=== PATIENT | female | born 1950 | race Caucasian/White ===

== ENCOUNTER 2019-02-02 09:54 | Inpatient (IN) | payer BC ==
--- NOTE | 2019-02-05 17:19 | R.PREADM ---
SCREENING DATE AND TIME 02/02/2019 09:58 (TAX ADVISOR) ANTICIPATED REHAB ADMISSION DATE 02/04/2019 REFERRING FACILITY [facility] REFERRAL DATE AND TIME 02/02/2019 09:58 (TAX ADVISOR) ACUTE ADMIT DATE 01/25/2019 Previous Rehabilitation(s): No. 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 CLINICAL LIAISON Torri Delacruz PHYSICIAN REVIEWER Dr. Cooper Pompa M.D. MR# [id number] [facility] [id number] NAME YAMILKA GLORIA [address]ESS [address] [facility] [address] DATE OF 1950 AGE 68 SSN# [id number] GENDER female MARITAL STATUS RACE white ADMIT FROM 02 - [facility] PRE-HOSPITAL LIVING SETTING 01 - Home (private home/apt. board/care, assisted living, snf, transitional living) HOME TYPE AND DETAILS Type of home: single family house # of steps to enter the residence: 0 # of steps within the residence: 0 # of levels in the residence: 1 PRE-HOSPITAL LIVING WITH Family/Relatives FAMILY SUPPORT Yes PRIMARY FAMILY CONTACT NAME Charles Gloria PRIMARY FAMILY CONTACT PHONE PHONE PRIMARY FAMILY CONTACT ON ADM.? no IS PRIMARY FAMILY CONTACT AUTH. REP.? no 1ST EMERGENCY CONTACT Charles Gloria 1ST CONTACT PHONE PHONE 1ST CONTACT ON ADM. no IS 1ST CONTACT AUTH. REP.? no PHONE 2ND CONTACT ON ADM.? no PATIENT EMPLOYMENT STATUS Retired (for age) PATIENT EMPLOYER No Employer PAYOR INFORMATION: 1ST PAYOR NAME Amari Allen 1ST PAYOR PHONE 1ST PAYOR INJURY/ILLNESS DUE TO ACCIDENT? No ANOTHER DEMOCRAT RESPONSIBLE? 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 Pneumonia Dehydration Malnutrition SUMMARY OF ACUTE HOSPITALIZATION: Pt. is a 68 yo Right-handed white female. On 01/25/2019 she was admitted to [facility] with diagnosis Secondary malignant neoplasm of bra in (C79.31). Her impairment category is Brain Dysfunction 02 - Non-traumatic Brain Dysfunction (02.1). Pre-morbidly, Pt. was independent/mod-I in Locomotion, Endurance, Self-Care, Balance, Transfers Contr ol, Safety Awareness, Social Cognition, Communication, and Sphincter Control; and she had good Sphinc ter Control. Currently, she has deficits of Locomotion, Self-Care, Endurance, Transfers Control, Balance, Safety A wareness, Social Cognition, Ambulation, Communication, Safety Awareness and Self-Care, and Sphincter Control. Pt. is now referred to [facility] for acute in-patient rehabilitation in order to maximize patient's functional independence in activities of daily living, strength, ROM, and mobi lity. Patient has realistic goal of being discharged at assistance level 6-Lilian to reside at Home with Fam nancy/Relatives. Yamilka Gloria is a 68 year old female that lives with her in a 1 lior home. She was completely independ ent without any assistive device and works at the [employer]. 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 and treated. She is now medically stable but in need of 24-hour nursing, doctor supervision and oversite while receiving in 3hours of therapy a day/15 hours per week and receive care with an intensive interdisciplinary approach. PAST MEDICAL HISTORY Hyperosmolality and hypernatremia (E87.0) acute encephalopathy acute pulmonary insuff fol nonthoracic surgery brain compression cerebral edema dysphagia essential primary hypertension hemiplegia and hemiparesis hypocalcemia hypokalemia MEDICATION ALLERGIES: No Known Drug Allergies (NKDA) ENVIRONMENTAL ALLERGIES: - Substance Allergies None Known - Other Allergies None Known CODE STATUS: Full code WEIGHT/HEIGHT/BMI: WEIGHT 183 lbs HEIGHT 5' 8" BMI 27.8 DIET: - Diet Type SOFT - Diet - Solid Texture GI SOFT - Diet - Liquid Texture [place]-Thickened - Tube Feed N/A SKIN DIAGRAM: Incision on Head; extent - small; stage - NS(Not Stageable). Treatment - Per Physician's Orders. REVIEW OF SYSTEMS: - Gen Alert and awake Lying in bed No apparent distress Oriented to: person, time, and place - Vital Signs Vital signs stable, afebrile - CVS RRR VITAL SIGNS Temperature: 98.4 F SBP/DBP: 137/96 Pulse: 77 Resp: 20 Vital signs stable, afebrile MEDICATIONS/TREATMENT: Other- See attached MAR (Medication Administration Record). CURRENT SPHINCTER CONTROL: Pre-hospital bladder status: continent # of bladder accidents in the last 7 days prior to screenin Pre-hospital bowel status: continent # of bowel accidents in the last 7 days prior to screenin Last Bowel Movement Date: 02/02/2019 CURRENT LOCOMOTION STATUS: distance traveled in wheelchair 0 feet distance walked 0 feet DETAILED CURRENT FUNCTIONAL STATUS: - Bladder accident frequency: Ind - No accidents in the past 7 days - Bowel accident frequency: Ind - No accidents in the past 7 days - Walking score based on distance walked: 1(<=50ft) - Wheelchair score based on distance traveled: 1(<=50ft) QI SCORES: - Self-Care A. Eating 04-Supervision or touching assistance B. Oral hygiene 03-Partial/moderate assistance C. Toileting hygiene 02-Substantial/maximal assistance E. Shower/bathe self 88-Not attempted due to medical condition or safety concerns F. Upper body dressing 02-Substantial/maximal assistance G. Lower body dressing 02-Substantial/maximal assistance H. Putting on/taking off footwear 01-Dependent - Mobility A. Roll left and right 03-Partial/moderate assistance B. Sit to lying 02-Substantial/maximal assistance C. Lying to sitting on side of bed 03-Partial/moderate assistance D. Sit to stand 02-Substantial/maximal assistance E. Chair/deu-oq-fucyg transfer 02-Substantial/maximal assistance F. Toilet transfer 02-Substantial/maximal assistance G. Car transfer 88-Not attempted due to medical condition or safety concerns I. Walk 10 feet 88-Not attempted due to medical condition or safety concerns J. Walk 50 feet with two turns 88-Not attempted due to medical condition or safety concerns K. Walk 150 feet 88-Not attempted due to medical condition or safety concerns L. Walking 10 feet on uneven surfaces 88-Not attempted due to medical condition or safety concerns M. 1 step (curb) 88-Not attempted due to medical condition or safety concerns N. 4 steps 88-Not attempted due to medical condition or safety concerns O. 12 steps 88-Not attempted due to medical condition or safety concerns P. Picking up object 88-Not attempted due to medical condition or safety concerns R. Wheel 50 feet with two turns 88-Not attempted due to medical condition or safety concerns S. Wheel 150 feet 88-Not attempted due to medical condition or safety concerns - Bladder and Bowel Bladder continence 9-Not applicable Bowel continence 3-Always incontinent - Endurance Poor - Balance Poor - Safety Awareness Poor CURRENT FUNC. DEFICITS: Self-Care, Mobility, Endurance, Balance, and Safety Awareness CURRENT / PREVIOUS ASSISTIVE DEVICES: 3-in-1 Commode [facility] Bed Raised Toilet Rolling Walker Tub Bench Wheelchair CURRENT USE ASSISTIVE DEVICES: SCDs TEDs HISTORY OF FALLS. HAS THE PATIENT HAD TWO OR MORE FALLS IN THE PAST YEAR OR ANY FALL WITH INJURY IN T HE PAST YEAR?: No PRIOR SURGERY. DID THE PATIENT HAVE MAJOR SURGERY DURING THE 100 DAYS PRIOR TO ADMISSION?: No THERAPY NOTES FROM ACUTE CARE: Attached. SPECIAL NEEDS: - Safety Concerns Aspiration precautions needed due to Dysphagia Fall precautions needed due to Poor balance Skin breakdown precautions needed due to skin breakdown risk PRECAUTIONS: - Aspiration Precaution 1 to 1 supervision with all po intake All meals in the dysphagia dining room No straws Seated at 90 degrees while eating and 30 minutes after meals - Fall Precaution Bed alarm TABS alarm Wheel chair alarm PATIENT NEEDS ACTIVE AND ONGOING THERAPEUTIC INTERVENTION OF MULTIPLE THERAPY DISCIPLINES, INCLUDING: - Dietary and Nutrition Adequate Nutrition. Nutritional Education. Nutritional Supplements. - Speech Therapy Cognitive Training. Dysphagia Therapy. Expressive Language Skills. Receptive Language Skills. PATIENT NEEDS CLOSE MEDICAL SUPERVISION BY A REHABILITATION PHYSICIAN FOR: Coordination of Treatment Team Medical and Co-Morbidity Management Wound Care PATIENT REQUIRES 24X7 REHAB NURSING FOR MEDICAL AND FUNCTIONAL MGT. OF THE FOLLOWING DEFICITS: Disease Management Medication Management Patient/Family Education Providing Safe Environment Skin Integrity Swallowing PATIENT REQUIRES INTENSIVE, COORDINATED INTERDISCIPLINARY APPROACH TO REHAB: Arranging Home Equipment/Services Discharge Planning Family Intervention/Training Rules Examiner/Case Management PATIENT REHAB POTENTIAL: Phuong GLORIA is able and expected to receive 3 hours of individualized therapy daily on at least 5 of ever y 7 days Phuong GLORIA's prognosis for significant practical improvement within a reasonable period of time appears Good Expected level of measurable improvement will be of a practical value to Phuong GLORIA's functional capacit y or adaptations to impairments Has a viable Discharge Plan Medically appropriate; condition is sufficiently stable to participate in intensive rehab program DISCHARGE PLAN: - Estimated Length of Stay (days) 13. - Consensus on plan Discharge plan has been discussed with primary caregiver. Patient/Family is in agreement with the felipa n. Primary caregiver is in agreement with the plan. - Patient/Family Goals Return home with assistance. - Planned Living Setting Upon Discharge Home, to live with Family/Relatives. RECOMMENDED CARE LEVEL: IRF RECOMMENDATION DETAILS: Recommended Admission to Comprehensive Rehabilitation Program to Increase Functional [place] SCREENER'S COMPLETENESS CONFIRMATION: - Screening Confirmation The patient data collection on this preadmission screening form is finished PHYSICIANS REVIEW AND ADMISSION DETERMINATION Admit - Based on my review of the Pre-Admission Screening results, in my medical judgment and experie nce, I concur with the findings and recommend admission to [facility], as this patient requires an IRF level of care. SIGNATURE PANEL: Clinical Liaison - [electronically] signed by Torri Delacruz on 02/05/2019 at 17:08 (TAX ADVISOR) Consumer Services Advisor - /__/____ at __:__ Physician Reviewer - [electronically] signed by Dr. Cooper Pompa M.D. on 02/05/2019 at 17:19 (TAX ADVISOR )
[2019-02-06] MEDS ORDERED: ACETAMINOPHEN 325 MG TABLET PO PRN (03:40)
[2019-02-06 05:43] LABS: Urine Appearance CLEAR; Urine Bilirubin NEGATIVE (NEG); Urine Blood NEGATIVE (NEG); Urine Color YELLOW; Urine Glucose NEGATIVE (NEG); Urine Protein NEGATIVE (NEG); Urine Urobilinogen 0.2 mg/dL (0.2-1.0); Urine pH 6.5 (5.0-7.0)
[2019-02-06 05:52] LABS: Urine Bacteria <20 /HPF (<20); Urine Culture Reflex Order NOT NEEDED; Urine RBC NONE SEEN /HPF (NONE SEEN)
[2019-02-06 06:34] LABS: Absolute Lymphocytes (CBC) 1.1 K/uL (0.7-4.9); Basophils % 0.1 % (0-1.3); Hematocrit 31.6 % (36.0-45.0); Lymphocytes % 6.5 % (15.3-44.8); MPV 10.6 fL (7.6-11.3); RBC Red Blood Cell Count 3.42 M/uL (3.86-4.86)
[2019-02-06] MEDS: HEPARIN 5000 UNIT/ML 1 ML VIAL SQ SCH ×2 (07:26→20:42)
[2019-02-06] MEDS ORDERED: dexAMETHasone 4 MG TAB PO SCH (08:00)
[2019-02-06 08:12] LABS: Albumin 2.6 g/dL (3.4-5.0); BUN Blood Urea Nitrogen 18 mg/dL (7-18); Bicarbonate 31 mmol/L (21-32); Glucose Level 126 mg/dL (74-106); Magnesium 2.2 mg/dL (1.8-2.4); Potassium 3.7 mmol/L (3.5-5.1); Prealbumin 28.7 mg/dL (20-40); Sodium Level 143 mmol/L (136-145)
[2019-02-06] MEDS: DOCUSATE NA 100 MG CAP PO SCH ×2 (08:19→20:40)
[2019-02-06] MEDS: dexAMETHasone 4 MG TAB PO SCH ×3 (08:19→20:42)
[2019-02-06] MEDS: levETIRAcetam 500 MG/5 ML OSYR PO SCH ×2 (08:58→20:40)
[2019-02-06] MEDS: FAMOTIDINE 20 MG TAB PO SCH ×2 (10:00→20:40)
[2019-02-06 10:12] LABS: Blood Morphology Comment NOT SEEN (NOT SEEN); Platelet Estimate ADEQ; Urine White Blood Cell Casts OK
[2019-02-06] MEDS ORDERED: POLYETHYL GLY 3350 17 GM/DOSE PO PRN (12:00)
--- NOTE | 2019-02-06 12:08 | FAST ---
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 Cooper Pompa M.D. 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 ROLL LEFT AND RIGHT: ROLL LEFT AND RIGHT - STEP 1: Does the patient complete the activity by him/herself with no assistance (physical, verbal/nonverbal cueing, setup/clean-up)? No. ROLL LEFT AND RIGHT - STEP 2: Does the patient need only setup/clean-up assistance from one helper? No. ROLL LEFT AND RIGHT - STEP 3: Does the patient need only verbal/nonverbal cueing or touching/steadying/contact guard assistance fro m one helper? Yes. 1. [id number] ADMISSION PERFORMANCE: Supervision or touching assistance CODE: 04 SIT TO LYING: SIT TO LYING - STEP 1: Does the patient complete the activity by him/herself with no assistance (physical, verbal/nonverbal cueing, setup/clean-up)? No. SIT TO LYING - STEP 2: Does the patient need only setup/clean-up assistance from one helper? No. SIT TO LYING - STEP 3: Does the patient need only verbal/nonverbal cueing or touching/steadying/contact guard assistance fro m one helper? Yes. 1. [id number] ADMISSION PERFORMANCE: Supervision or touching assistance CODE: 04 LYING TO SITTING: LYING TO SITTING ON SIDE OF BED - STEP 1: Does the patient complete the activity by him/herself with no assistance (physical, verbal/nonverbal cueing, setup/clean-up)? No. LYING TO SITTING ON SIDE OF BED - STEP 2: Does the patient need only setup/clean-up assistance from one helper? No. LYING TO SITTING ON SIDE OF BED - STEP 3: Does the patient need only verbal/nonverbal cueing or touching/steadying/contact guard assistance fro m one helper? Yes. 1. [id number] ADMISSION PERFORMANCE: Supervision or touching assistance CODE: 04 SIT TO STAND: SIT TO STAND - STEP 1: Does the patient complete the activity by him/herself with no assistance (physical, verbal/nonverbal cueing, setup/clean-up)? No. SIT TO STAND - STEP 2: Does the patient need only setup/clean-up assistance from one helper? No. SIT TO STAND - STEP 3: Does the patient need only verbal/nonverbal cueing or touching/steadying/contact guard assistance fro m one helper? Yes. 1. [id number] ADMISSION PERFORMANCE: Supervision or touching assistance CODE: 04 TRANSFERS: BED, CHAIR: CHAIR/[id number] TRANSFER - STEP 1: Does the patient complete the activity by him/herself with no assistance (physical, verbal/nonverbal cueing, setup/clean-up)? No. CHAIR/[id number] TRANSFER - STEP 2: Does the patient need only setup/clean-up assistance from one helper? No. CHAIR/[id number] TRANSFER - STEP 3: Does the patient need only verbal/nonverbal cueing or touching/steadying/contact guard assistance fro m one helper? Yes. 1. [id number] ADMISSION PERFORMANCE: Supervision or touching assistance CODE: 04 TRANSFER TOILET: TOILET TRANSFER - STEP 1: Does the patient complete the activity by him/herself with no assistance (physical, verbal/nonverbal cueing, setup/clean-up)? No. TOILET TRANSFER - STEP 2: Does the patient need only setup/clean-up assistance from one helper? No. TOILET TRANSFER - STEP 3: Does the patient need only verbal/nonverbal cueing or touching/steadying/contact guard assistance fro m one helper? Yes. 1. [id number] ADMISSION PERFORMANCE: Supervision or touching assistance CODE: 04 TRANSFERS: CAR: Not attempted due to environmental limitations (e.g., lack of equipment, weather constraints) CODE: 10 WALK 10 FEET: WALK 10 FEET - STEP 1: Does the patient complete the activity by him/herself with no assistance (physical, verbal/nonverbal cueing, setup/clean-up)? No. WALK 10 FEET - STEP 2: Does the patient need only setup/clean-up assistance from one helper? No. WALK 10 FEET - STEP 3: Does the patient need only verbal/nonverbal cueing or touching/steadying/contact guard assistance fro m one helper? Yes. 1. [id number] ADMISSION PERFORMANCE: Supervision or touching assistance CODE: 04 WALK 50 FEET: WALK 50 FEET - STEP 1: Does the patient complete the activity by him/herself with no assistance (physical, verbal/nonverbal cueing, setup/clean-up)? No. WALK 50 FEET - STEP 2: Does the patient need only setup/clean-up assistance from one helper? No. WALK 50 FEET - STEP 3: Does the patient need only verbal/nonverbal cueing or touching/steadying/contact guard assistance fro m one helper? Yes. 1. [id number] ADMISSION PERFORMANCE: Supervision or touching assistance CODE: 04 WALK 150 FEET: WALK 150 FEET - STEP 1: Does the patient complete the activity by him/herself with no assistance (physical, verbal/nonverbal cueing, setup/clean-up)? No. WALK 150 FEET - STEP 2: Does the patient need only setup/clean-up assistance from one helper? No. WALK 150 FEET - STEP 3: Does the patient need only verbal/nonverbal cueing or touching/steadying/contact guard assistance fro m one helper? Yes. 1. [id number] ADMISSION PERFORMANCE: Supervision or touching assistance CODE: WALK 10 FEET UNEVEN: Not attempted due to environmental limitations (e.g., lack of equipment, weather constraints) CODE: 10 1 STEP (CURB): Not attempted due to medical condition or safety concerns CODE: 88 PICKING UP OBJECT: Not attempted due to medical condition or safety concerns CODE: 88 DOES THE PATIENT USE A WHEELCHAIR/SCOOTER? Q1. DOES THE PATIENT USE A WHEELCHAIR/SCOOTER?: No CODE: 0 INDICATE THE TYPE OF WHEELCHAIR/SCOOTER USED: CODE: EXPR INDICATE THE TYPE OF WHEELCHAIR/SCOOTER USED: CODE: EXPR BLADDER AND BOWEL: CODE: EXPR CODE: EXPR SIGNATURE PANEL: The following modified sections: 1. [id number] Admission Performance, 1. [id number] Admission Performance, 1. [id number] Admission Performance, 1. [id number] Admission Performance, 1. [id number] Admission Performance, 1. [id number] Admission Performance, 1. [id number] Admission Performance, 1. [id number] Admission Performance , 1. [id number] Admission Performance, 1. [id number] Admission Performance, 1. [id number] Admission Performanc e, Q1. Does the patient use a wheelchair/scooter? were [electronically] signed by Karen Menendez on Sat Feb 06 2019 12:07:29 T-0600 (Central Standard Time)
[2019-02-06] MEDS ORDERED: BISACODYL 10 MG RECTAL SUPP PR PRN (13:35)
[2019-02-06] MEDS ORDERED: MAGNESIUM HYDROXIDE 8% 30 ML PO PRN (13:35)
[2019-02-06] MEDS: ACETAMINOPHEN 500 MG TAB PO PRN ×2 (13:58→17:45)
--- NOTE | 2019-02-06 15:13 | R.HP ---
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 board/care, assisted living, mcfp, transitional living) PRE-HOSPITAL LIVING WITH Family/Relatives ENCOUNTER PHYSICIAN: Dr. Cooper Pompa M.D. 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 is a 68 yo Right-handed white female. On 01/25/2019 she was admitted to [facility] with diagnosis Secondary malignant neoplasm of bra in (C79.31). Her impairment category is Brain Dysfunction 02 - Non-traumatic Brain Dysfunction (02.1). Pre-morbidly, Pt. was independent/mod-I in Locomotion, Endurance, Self-Care, Balance, Transfers Contr ol, Safety Awareness, Social Cognition, Communication, and Sphincter Control; and she had good Sphinc ter Control. Currently, she has deficits of Locomotion, Self-Care, Endurance, Transfers Control, Balance, Safety A wareness, Social Cognition, Ambulation, Communication, Safety Awareness and Self-Care, and Sphincter Control. Pt. is now referred to [facility] for acute in-patient rehabilitation in order to maximize patient's functional independence in activities of daily living, strength, ROM, and mobi lity. Patient has realistic goal of being discharged at assistance level 6-Lilian to reside at Home with Fam nancy/Relatives. Yamilka Adkins is a 68 year old female that lives with her in a 1 lior home. She was completely independ ent without any assistive device and works at the [employer]. On 01/25/2019, patient had a history of 1 day headache and reported left sided weakness, initially as a code stroke presenting with right temporal and right parietal lesions concerning metastasis and was admitted to [facility] and treated. She is now medically stable but in need of 24-hour nursing, doctor supervision and oversite while receiving in 3hours of therapy a day/15 hours per week and receive care with an intensive interdisciplinary approach. MEDICATION ALLERGIES: No Known Drug Allergies (NKDA) ENVIRONMENTAL ALLERGIES: - Substance Allergies None Known - Other Allergies None Known PAST MEDICAL HISTORY: Hyperosmolality and hypernatremia (E87.0) acute encephalopathy acute pulmonary insuff fol nonthoracic surgery brain compression cerebral edema dysphagia essential primary hypertension hemiplegia and hemiparesis hypocalcemia hypokalemia FAMILY HISTORY: Family history is not contributory. SOCIAL HISTORY: - Home Living Family/Relatives REVIEW OF SYSTEMS: - Gen No Chills Fatigue No Fever Headaches and right temporal pain. Insomnia - Eyes No Double Vision No itchiness - ENMT No Difficulty Swallowing - CVS No Chest Discomfort No Chest Pain Fatigue No Weight Gain - Resp No Cough No Shortness of Breath - GI Continent No Abdominal Pain No Constipation No Diarrhea - Continent No Kidney Pain No Painful Urination No Urinary Urgency - MSK No Joint Pain No Muscle Cramps No Stiffness - Skin No Itching No Rash No Suspicious Lesions - Neuro Coordination Difficulty No Difficulty with Concentration No Memory Loss No Seizures Weakness - Psych No Anxiety No Depression No HIV Exposure No Persistent Infections No Seasonal Allergies - Endo No Cold/Heat Intolerance No Excessive Hunger No Excessive Thirst No Excessive Urination PHYSICAL EXAM - Gen Alert and awake Lying in bed No apparent distress Oriented to: person, time, and place - Vital Signs Vital signs stable, afebrile - Skin No skin breakdown. Normacephalic - Eyes No abnormalities - ENMT No abnormalities - Neck No abnormalities - CVS RRR - Chest No abnormalities - Resp Clear to auscultation - Abd Soft - GI Non distended Deferred - No abnormalities - Ext No significant edema - MSK 4/5 weakness in both lower extremities. - Neuro No focal deficits - Psych No abnormalities VITAL SIGNS Temperature: 98.4 F SBP/DBP: 137/96 Pulse: 77 Resp: 16 NURSING: - Shower allowing shower - Bladder care per protocol - Skin care per protocol PRECAUTIONS: - Aspiration Precaution 1 to 1 supervision with all po intake All meals in the dysphagia dining room No straws Seated at 90 degrees while eating and 30 minutes after meals - Fall Precaution Bed alarm TABS alarm Wheel chair alarm ACTIVITIES OOB only with supervision QI SCORES: - Self-Care A. Eating 04-Supervision or touching assistance B. Oral hygiene 03-Partial/moderate assistance C. Toileting hygiene 02-Substantial/maximal assistance E. Shower/bathe self 88-Not attempted due to medical condition or safety concerns F. Upper body dressing 02-Substantial/maximal assistance G. Lower body dressing 02-Substantial/maximal assistance H. Putting on/taking off footwear 01-Dependent - Mobility A. Roll left and right 03-Partial/moderate assistance B. Sit to lying 02-Substantial/maximal assistance C. Lying to sitting on side of bed 03-Partial/moderate assistance D. Sit to stand 02-Substantial/maximal assistance E. Chair/fgr-yx-ptttf transfer 02-Substantial/maximal assistance F. Toilet transfer 02-Substantial/maximal assistance G. Car transfer 88-Not attempted due to medical condition or safety concerns I. Walk 10 feet 88-Not attempted due to medical condition or safety concerns J. Walk 50 feet with two turns 88-Not attempted due to medical condition or safety concerns K. Walk 150 feet 88-Not attempted due to medical condition or safety concerns L. Walking 10 feet on uneven surfaces 88-Not attempted due to medical condition or safety concerns M. 1 step (curb) 88-Not attempted due to medical condition or safety concerns N. 4 steps 88-Not attempted due to medical condition or safety concerns O. 12 steps 88-Not attempted due to medical condition or safety concerns P. Picking up object 88-Not attempted due to medical condition or safety concerns R. Wheel 50 feet with two turns 88-Not attempted due to medical condition or safety concerns S. Wheel 150 feet 88-Not attempted due to medical condition or safety concerns - Bladder and Bowel Bladder continence 9-Not applicable Bowel continence 3-Always incontinent - Endurance Poor - Balance Poor - Safety Awareness Poor CURRENT FUNC. DEFICITS: Self-Care, Mobility, Endurance, Balance, and Safety Awareness MEDICATIONS: - Other See attached MAR (Medication Administration Record) ASSESSMENT: Pt. 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 was independent/mod-I in Locomotion, Endu felecia, Self-Care, Balance, Transfers Control, Safety Awareness, Social Cognition, Communication, and Sphincter Control; and she had good Sphincter Control.Currently, she has deficits of Locomotion, Self -Care, Endurance, Transfers Control, Balance, Safety Awareness, Social Cognition, Ambulation, Communi cation, Safety Awareness and Self-Care, and Sphincter Control.Pt. is now referred to [facility] for acute in-patient rehabilitation in order to maximize patient's functional indep endence in activities of daily living, strength, ROM, and mobility.- Rehab Goal Patient has realistic goal of being discharged at assistance level 6-Lilian to reside at Home with Fam nancy/Relatives. Yamilka Adkins is a 68 year old female that lives with her in a 1 lior home. She was completely independ ent without any assistive device and works at the [employer]. On 01/25/2019, patient had a history of 1 day headache and reported left sided weakness, initially as a code stroke presenting with right temporal and right parietal lesions concerning metastasis and was admitted to [facility] and treated. She is now medically stable but in need of 24-hour nursing, doctor supervision and oversite while receiving in 3hours of therapy a day/15 hours per week and receive care with an intensive interdisciplinary approach.REHAB PLAN: - Physical Therapy Gait dysfunction - to improve, our physical therapists will perform initial evaluation of pt's status upon admission and devise an individualized program for Gait Training, and Wheel Chair mobility Inability to transfer - to improve, our physical therapists will perform initial evaluation of pt's s tatus upon admission and devise an individualized program for Bed mobility Need for home safety evaluation - to improve, our physical therapists will perform initial evaluation of pt's status upon admission and devise an individualized program for Home Evaluation Need in caregiver upon discharge - to improve, our physical therapists will perform initial evaluatio n of pt's status upon admission and devise an individualized program for Caregiver Training New precaution - to improve, our physical therapists will perform initial evaluation of pt's status u robel admission and devise an individualized program for Patient precaution education Edema - to improve, our physical therapists will perform initial evaluation of pt's status upon admi ssion and devise an individualized program for Elevation Training, and Lymphedema Therapy Poor balance - to improve, our physical therapists will perform initial evaluation of pt's status upo n admission and devise an individualized program for Balance Training Poor endurance - to improve, our physical therapists will perform initial evaluation of pt's status u robel admission and devise an individualized program for Endurance Training Weakness - to improve, our physical therapists will perform initial evaluation of pt's status upon ad mission and devise an individualized program for Aquatic Therapy, Neuromuscular Reeducation, and Stre ngthening Achieving independence - to improve, our physical therapists will perform initial evaluation of pt's status upon admission and devise an individualized program for Community Reintegration Activities - Occupational Therapy ADL deficits - to improve, our occupation therapists will perform initial evaluation of pt's status u robel admission and devise an individualized program for Bathing, Bed mobility, Community Reintegration , Cooking, Dressing, Eating, Fine Motor Skills, Grooming, Homemaking, Kitchen Mobility, Laundry, Beata ent Education, Safety Awareness, Splinting - Positioning, Transfers(Toilet, Tub, Shower), and Wheel C hair Management Cognitive deficits - to improve, our occupation therapists will perform initial evaluation of pt's st atus upon admission and devise an individualized program for Cognition - orientation Need for career coach - to improve, our occupation therapists will perform initial evaluation of pt's s tatus upon admission and devise an individualized program for Caregiver Training Weakness - to improve, our occupation therapists will perform initial evaluation of pt's status upon admission and devise an individualized program for Aquatic Therapy, Balance, Endurance, UE ROM, and U E strengthening MEDICAL PLAN: - Diet Type Start SOFT - Diet - Solid Texture Start GI SOFT - Diet - Liquid Texture Start [place]-Thickened - Tube Feed Start N/A - Bladder care per protocol - Aspiration Precaution 1 to 1 supervision with all po intake All meals in the dysphagia dining room No straws Seated at 90 degrees while eating and 30 minutes after meals - Fall Precaution Bed alarm TABS alarm Wheel chair alarm - Skin care per protocol - Other See attached MAR (Medication Administration Record) - Shower shower DISCHARGE PLAN: - Estimated Length of Stay (days) 13. - Consensus on plan Discharge plan has been discussed with primary caregiver. Patient/Family is in agreement with the felipa n. Primary caregiver is in agreement with the plan. - Patient/Family Goals Return home with assistance. - Planned Living Setting Upon Discharge Home, to live with Family/Relatives. 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
--- NOTE | 2019-02-06 15:14 | PAPE ---
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 Cooper Pompa M.D. 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) ONSET DATE 01/25/2019 SECONDARY/COMORBID DIAGNOSES TIERED: - Non-Tiered Hyperosmolality and hypernatremia (E87.0) hypocalcemia - N/A cerebral edema hemiplegia and hemiparesis acute encephalopathy brain compression essential primary hypertension dysphagia acute pulmonary insuff fol nonthoracic surgery hypokalemia POST-ADMISSION FUNCTIONAL/MEDICAL STATUS: - Bladder Same accident frequency: Ind - No accidents in the past 7 days - Bowel Same accident frequency: Ind - No accidents in the past 7 days - Walking Same score based on distance walked: 1(<=50ft) - Wheelchair Same score based on distance traveled: 1(<=50ft) STATUS CHANGE EVALUATION: No change in Functional or Medical Status is identified compared with Pre-Admission screening. PATIENT NEEDS CLOSE MEDICAL SUPERVISION BY A REHABILITATION PHYSICIAN FOR: Coordination of Treatment Team Medical and Co-Morbidity Management Wound Care PATIENT REQUIRES 24X7 REHAB NURSING FOR MEDICAL AND FUNCTIONAL MGT. OF THE FOLLOWING DEFICITS: Disease Management Medication Management Patient/Family Education Providing Safe Environment Skin Integrity Swallowing PATIENT REQUIRES INTENSIVE, COORDINATED INTERDISCIPLINARY APPROACH TO REHAB: Arranging Home Equipment/Services Discharge Planning Family Intervention/Training Superintendent Recreation/Case Management LIST OF IDENTIFIED AND POTENTIAL PROBLEMS: Alteration in leisure activities Aspiration, Actual or Potential Bladder, Incontinence Blood Pressure, Hypertension/hypotension Issues Bowel, Incontinence Falls, Actual or Potential Infection, Actual or Potential Mobility Impaired Pain, Alteration in Comfort Self Care Deficit Skin Integrity, Actual or Potential Urinary Tract Infection (UTI), Actual or Potential RISK FOR COMPLICATIONS - Dysphagia Asp. Pneumonia. Dehydration. Malnutrition. INTERVENTIONS - Dysphagia PATIENT COULD BE AT RISK FOR COMPLICATIONS FROM ADVERSE MEDICAL CONDITIONS DUE TO HIS/HER COMORBIDITI ES AND THE RIGORS OF THE INTENSIVE REHABILLITATION PROGRAM. METHODS OR INTERVENTIONS TO AVOID COMPLIC ATIONS INCLUDE: - Bleeding Assess lab values and manage abnormalities. Nursing to teach precautions for anti-coagulation therapy . Wound to be assessed every shift. - Infection Clinical staff to assess and manage the signs and symptoms of infection including fever, redness, war mth, etc. - Urinary Tract Infection - Aspiration Clinical staff will assess and manage coughing, drooling, congestion. - Falls Patient will be evaluated for Fall Precautions and will be placed on Fall Precautions as indicated pe r protocol. - Skin Breakdown Nursing will assess skin daily using assessment tool and will place on Skin Breakdown Precautions as indicated per protocol. - Pain Clinical staff may employ non-medication methods such as massage, distraction, decrease stimulus, etc . as needed. Clinical staff will assess patient's pain level every shift per protocol to assess and e nsure pain management effectiveness. Medications will be given and the pain level re-assessed. PRELIMINARY PLAN OF CARE: - Physical Therapy Patient needs Physical Therapy for a daily minimum of 1.5 hours at least 5 out of 7 days, to improve: Mobility, Strengthening, Transfers, Stretching, ROM, Endurance, Ability to manage stairs, Gait, and Balance. - Speech Therapy Patient needs Speech Therapy for a daily minimum of 0.5 hours at least 5 out of 7 days, to improve: S wallowing, Cognition, Language Skills, and Compensatory Strategies. - Rehabilitation Nursing Patient requires 24x7 Rehabilitation Nursing for: Pain Issues, Identifying and preventing risk factor s, Monitoring and reporting current medical conditions, Assisting with ambulation and transfer, Ruba ting with all ADL-s, Teaching patients about disease process and medications, Family teaching, Provid ing safe environment, Bowel and Bladder Issues, Skin Integrity, and Medication Management. Patient needs Superintendent Recreation and/or Case Management for: Discharge Planning, Arranging Home Equipmen t or Services, and Family Interventions. - Dietary and Nutrition Services Patient needs Dietary and Nutrition Services for: Adequate Nutrition, Nutritional Supplements, and Nu tritional Education. - Occupational Therapy Patient needs Occupational Therapy for a daily minimum of 1.5 hours at least 5 out of 7 days, to impr ove Activities of Daily Living, including: Eating, Grooming, Bathing, Dressing, Toileting, Toilet Tra nsfers, Community Reintegration, Higher functional activities, Adaptive Equipment, Splinting, Househo ld Tasks, and Other activities as determined. QI SCORES: - Self-Care A. Eating 04-Supervision or touching assistance B. Oral hygiene 03-Partial/moderate assistance C. Toileting hygiene 02-Substantial/maximal assistance E. Shower/bathe self 88-Not attempted due to medical condition or safety concerns F. Upper body dressing 02-Substantial/maximal assistance G. Lower body dressing 02-Substantial/maximal assistance H. Putting on/taking off footwear 01-Dependent - Mobility A. Roll left and right 03-Partial/moderate assistance B. Sit to lying 02-Substantial/maximal assistance C. Lying to sitting on side of bed 03-Partial/moderate assistance D. Sit to stand 02-Substantial/maximal assistance E. Chair/[id number]-yl-[id number] transfer 02-Substantial/maximal assistance F. Toilet transfer 02-Substantial/maximal assistance G. Car transfer 88-Not attempted due to medical condition or safety concerns I. Walk 10 feet 88-Not attempted due to medical condition or safety concerns J. Walk 50 feet with two turns 88-Not attempted due to medical condition or safety concerns K. Walk 150 feet 88-Not attempted due to medical condition or safety concerns L. Walking 10 feet on uneven surfaces 88-Not attempted due to medical condition or safety concerns M. 1 step (curb) 88-Not attempted due to medical condition or safety concerns N. 4 steps 88-Not attempted due to medical condition or safety concerns O. 12 steps 88-Not attempted due to medical condition or safety concerns P. Picking up object 88-Not attempted due to medical condition or safety concerns R. Wheel 50 feet with two turns 88-Not attempted due to medical condition or safety concerns S. Wheel 150 feet 88-Not attempted due to medical condition or safety concerns - Bladder and Bowel Bladder continence 9-Not applicable Bowel continence 3-Always incontinent - Endurance Poor - Balance Poor - Safety Awareness Poor POTENTIAL FUNCTIONAL GOALS FOR PATIENT TO ACHIEVE BY DISCHARGE: - Safety Precaution Patient will remain free from falls or injury at time of discharge. - Bed Mobility Patient will perform bed mobility at 4-[place] level of assistance. - Transfers Patient will complete transfers from bed to chair at 4-[place] level of assistance. - Mobility Patient will ambulate 150 ft with 4-Milan level of assistance with RW. PATIENT REHAB POTENTIAL Phuong GLORIA is able and expected to receive 3 hours of individualized therapy daily on at least 5 of ever y 7 days Phuong GLORIA's prognosis for significant practical improvement within a reasonable period of time appears Good Expected level of measurable improvement will be of a practical value to Phuong GLORIA's functional capacit y or adaptations to impairments Has a viable Discharge Plan Medically appropriate; condition is sufficiently stable to participate in intensive rehab program DISCHARGE PLAN: - Estimated Length of Stay (days) 13. - Consensus on plan Discharge plan has been discussed with primary caregiver. Patient/Family is in agreement with the felipa n. Primary caregiver is in agreement with the plan. - Patient/Family Goals Return home with assistance. - Planned Living Setting Upon Discharge Home, to live with Family/Relatives. CONCLUSION ON REHABILITATION NECESSITY: I have evaluated patient's pre-admission functional status and, comparing it to the patient's post-ad mission functional status now, I conclude that the pre-admission assessment was accurate. Patient's c ondition on admission supports the medical necessity of admission to [facility]. It is safe to proceed with patient's therapy program. 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
--- NOTE | 2019-02-06 15:40 | FAST ---
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 Cooper Pompa M.D. 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 EATING: Not assessed/no information CODE: - ORAL HYGIENE: ORAL HYGIENE - STEP 1: Does the patient complete the activity by him/herself with no assistance (physical, verbal/nonverbal cueing, setup/clean-up)? No. ORAL HYGIENE - STEP 2: Does the patient need only setup/clean-up assistance from one helper? Yes. 1. [id number] ADMISSION PERFORMANCE: Setup or clean-up assistance CODE: 05 TOILETING HYGIENE: Not assessed/no information CODE: - BATHING: SHOWER/BATHE SELF - STEP 1: Does the patient complete the activity by him/herself with no assistance (physical, verbal/nonverbal cueing, setup/clean-up)? No. SHOWER/BATHE SELF - STEP 2: Does the patient need only setup/clean-up assistance from one helper? No. SHOWER/BATHE SELF - STEP 3: Does the patient need only verbal/nonverbal cueing or touching/steadying/contact guard assistance fro m one helper? No. SHOWER/BATHE SELF - STEP 4: Does the patient need physical assistance - for example lifting or trunk support from one helper - wi th the helper providing less than half of the effort? Yes. 1. [id number] ADMISSION PERFORMANCE: Partial/moderate assistance CODE: 03 DRESSING - UPPER BODY: DRESSING - UPPER BODY - STEP 1: Does the patient complete the activity by him/herself with no assistance (physical, verbal/nonverbal cueing, setup/clean-up)? No. DRESSING - UPPER BODY - STEP 2: Does the patient need only setup/clean-up assistance from one helper? No. DRESSING - UPPER BODY - STEP 3: Does the patient need only verbal/nonverbal cueing or touching/steadying/contact guard assistance fro m one helper? No. DRESSING - UPPER BODY - STEP 4: Does the patient need physical assistance - for example lifting or trunk support from one helper - wi th the helper providing less than half of the effort? No. DRESSING - UPPER BODY - STEP 5: Does the patient need physical assistance - for example lifting or trunk support from one helper - wi th the helper providing more than half of the effort? Yes. 1. [id number] ADMISSION PERFORMANCE: Substantial/maximal assistance CODE: 02 DRESSING - LOWER BODY: DRESSING - LOWER BODY - STEP 1: Does the patient complete the activity by him/herself with no assistance (physical, verbal/nonverbal cueing, setup/clean-up)? No. DRESSING - LOWER BODY - STEP 2: Does the patient need only setup/clean-up assistance from one helper? No. DRESSING - LOWER BODY - STEP 3: Does the patient need only verbal/nonverbal cueing or touching/steadying/contact guard assistance fro m one helper? No. DRESSING - LOWER BODY - STEP 4: Does the patient need physical assistance - for example lifting or trunk support from one helper - wi th the helper providing less than half of the effort? No. DRESSING - LOWER BODY - STEP 5: Does the patient need physical assistance - for example lifting or trunk support from one helper - wi th the helper providing more than half of the effort? No. DRESSING - LOWER BODY - STEP 6: Does the helper provide all of the effort? OR Is the assistance of two or more helpers required to co mplete the activity? Yes. 1. [id number] ADMISSION PERFORMANCE: Dependent CODE: 01 PUTTING ON/TAKING OFF FOOTWEAR: FOOTWEAR - STEP 1: Does the patient complete the activity by him/herself with no assistance (physical, verbal/nonverbal cueing, setup/clean-up)? No. FOOTWEAR - STEP 2: Does the patient need only setup/clean-up assistance from one helper? No. FOOTWEAR - STEP 3: Does the patient need only verbal/nonverbal cueing or touching/steadying/contact guard assistance fro m one helper? No. FOOTWEAR - STEP 4: Does the patient need physical assistance - for example lifting or trunk support from one helper - wi th the helper providing less than half of the effort? No. FOOTWEAR - STEP 5: Does the patient need physical assistance - for example lifting or trunk support from one helper - wi th the helper providing more than half of the effort? No. FOOTWEAR - STEP 6: Does the helper provide all of the effort? OR Is the assistance of two or more helpers required to co mplete the activity? Yes. 1. [id number] ADMISSION PERFORMANCE: Dependent CODE: 01 DOES THE PATIENT USE A WHEELCHAIR/SCOOTER? CODE: EXPR INDICATE THE TYPE OF WHEELCHAIR/SCOOTER USED: CODE: EXPR INDICATE THE TYPE OF WHEELCHAIR/SCOOTER USED: CODE: EXPR BLADDER AND BOWEL: CODE: EXPR CODE: EXPR SIGNATURE PANEL: The following modified sections: 1. [id number] Admission Performance, 1. [id number] Admission Performance, 1. [id number] Admission Performance, 1. [id number] Admission Performance, 1. [id number] Admission Performance were [electronically] signed by Karen Freire OT on Sat Feb 06 2019 15:40:12 GMT-0600 ([place])
--- NOTE | 2019-02-06 16:20 | FAST ---
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 Cooper Pompa M.D. 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 EATING: EATING - STEP 1: Does the patient complete the activity by him/herself with no assistance (physical, verbal/nonverbal cueing, setup/clean-up)? No. EATING - STEP 2: Does the patient need only setup/clean-up assistance from one helper? Yes. 1. [id number] ADMISSION PERFORMANCE: Setup or clean-up assistance CODE: 05 ORAL HYGIENE: ORAL HYGIENE - STEP 1: Does the patient complete the activity by him/herself with no assistance (physical, verbal/nonverbal cueing, setup/clean-up)? No. ORAL HYGIENE - STEP 2: Does the patient need only setup/clean-up assistance from one helper? Yes. 1. [id number] ADMISSION PERFORMANCE: Setup or clean-up assistance CODE: 05 TOILETING HYGIENE: TOILETING HYGIENE - STEP 1: Does the patient complete the activity by him/herself with no assistance (physical, verbal/nonverbal cueing, setup/clean-up)? No. TOILETING HYGIENE - STEP 2: Does the patient need only setup/clean-up assistance from one helper? Yes. 1. [id number] ADMISSION PERFORMANCE: Setup or clean-up assistance CODE: 05 BATHING: Not assessed/no information CODE: - DRESSING - UPPER BODY: DRESSING - UPPER BODY - STEP 1: Does the patient complete the activity by him/herself with no assistance (physical, verbal/nonverbal cueing, setup/clean-up)? No. DRESSING - UPPER BODY - STEP 2: Does the patient need only setup/clean-up assistance from one helper? No. DRESSING - UPPER BODY - STEP 3: Does the patient need only verbal/nonverbal cueing or touching/steadying/contact guard assistance fro m one helper? No. DRESSING - UPPER BODY - STEP 4: Does the patient need physical assistance - for example lifting or trunk support from one helper - wi th the helper providing less than half of the effort? No. DRESSING - UPPER BODY - STEP 5: Does the patient need physical assistance - for example lifting or trunk support from one helper - wi th the helper providing more than half of the effort? Yes. 1. [id number] ADMISSION PERFORMANCE: Substantial/maximal assistance CODE: 02 DRESSING - LOWER BODY: DRESSING - LOWER BODY - STEP 1: Does the patient complete the activity by him/herself with no assistance (physical, verbal/nonverbal cueing, setup/clean-up)? No. DRESSING - LOWER BODY - STEP 2: Does the patient need only setup/clean-up assistance from one helper? No. DRESSING - LOWER BODY - STEP 3: Does the patient need only verbal/nonverbal cueing or touching/steadying/contact guard assistance fro m one helper? No. DRESSING - LOWER BODY - STEP 4: Does the patient need physical assistance - for example lifting or trunk support from one helper - wi th the helper providing less than half of the effort? No. DRESSING - LOWER BODY - STEP 5: Does the patient need physical assistance - for example lifting or trunk support from one helper - wi th the helper providing more than half of the effort? No. DRESSING - LOWER BODY - STEP 6: Does the helper provide all of the effort? OR Is the assistance of two or more helpers required to co mplete the activity? Yes. 1. [id number] ADMISSION PERFORMANCE: Dependent CODE: 01 PUTTING ON/TAKING OFF FOOTWEAR: FOOTWEAR - STEP 1: Does the patient complete the activity by him/herself with no assistance (physical, verbal/nonverbal cueing, setup/clean-up)? No. FOOTWEAR - STEP 2: Does the patient need only setup/clean-up assistance from one helper? No. FOOTWEAR - STEP 3: Does the patient need only verbal/nonverbal cueing or touching/steadying/contact guard assistance fro m one helper? No. FOOTWEAR - STEP 4: Does the patient need physical assistance - for example lifting or trunk support from one helper - wi th the helper providing less than half of the effort? No. FOOTWEAR - STEP 5: Does the patient need physical assistance - for example lifting or trunk support from one helper - wi th the helper providing more than half of the effort? No. FOOTWEAR - STEP 6: Does the helper provide all of the effort? OR Is the assistance of two or more helpers required to co mplete the activity? Yes. 1. [id number] ADMISSION PERFORMANCE: Dependent CODE: 01 ROLL LEFT AND RIGHT: ROLL LEFT AND RIGHT - STEP 1: Does the patient complete the activity by him/herself with no assistance (physical, verbal/nonverbal cueing, setup/clean-up)? No. ROLL LEFT AND RIGHT - STEP 2: Does the patient need only setup/clean-up assistance from one helper? No. ROLL LEFT AND RIGHT - STEP 3: Does the patient need only verbal/nonverbal cueing or touching/steadying/contact guard assistance fro m one helper? Yes. 1. [id number] ADMISSION PERFORMANCE: Supervision or touching assistance CODE: 04 SIT TO LYING: SIT TO LYING - STEP 1: Does the patient complete the activity by him/herself with no assistance (physical, verbal/nonverbal cueing, setup/clean-up)? No. SIT TO LYING - STEP 2: Does the patient need only setup/clean-up assistance from one helper? No. SIT TO LYING - STEP 3: Does the patient need only verbal/nonverbal cueing or touching/steadying/contact guard assistance fro m one helper? Yes. 1. [id number] ADMISSION PERFORMANCE: Supervision or touching assistance CODE: 04 LYING TO SITTING: LYING TO SITTING ON SIDE OF BED - STEP 1: Does the patient complete the activity by him/herself with no assistance (physical, verbal/nonverbal cueing, setup/clean-up)? No. LYING TO SITTING ON SIDE OF BED - STEP 2: Does the patient need only setup/clean-up assistance from one helper? No. LYING TO SITTING ON SIDE OF BED - STEP 3: Does the patient need only verbal/nonverbal cueing or touching/steadying/contact guard assistance fro m one helper? Yes. 1. [id number] ADMISSION PERFORMANCE: Supervision or touching assistance CODE: 04 SIT TO STAND: SIT TO STAND - STEP 1: Does the patient complete the activity by him/herself with no assistance (physical, verbal/nonverbal cueing, setup/clean-up)? No. SIT TO STAND - STEP 2: Does the patient need only setup/clean-up assistance from one helper? No. SIT TO STAND - STEP 3: Does the patient need only verbal/nonverbal cueing or touching/steadying/contact guard assistance fro m one helper? Yes. 1. [id number] ADMISSION PERFORMANCE: Supervision or touching assistance CODE: 04 TRANSFERS: BED, CHAIR: CHAIR/[id number] TRANSFER - STEP 1: Does the patient complete the activity by him/herself with no assistance (physical, verbal/nonverbal cueing, setup/clean-up)? No. CHAIR/[id number] TRANSFER - STEP 2: Does the patient need only setup/clean-up assistance from one helper? No. CHAIR/[id number] TRANSFER - STEP 3: Does the patient need only verbal/nonverbal cueing or touching/steadying/contact guard assistance fro m one helper? Yes. 1. [id number] ADMISSION PERFORMANCE: Supervision or touching assistance CODE: 04 TRANSFER TOILET: TOILET TRANSFER - STEP 1: Does the patient complete the activity by him/herself with no assistance (physical, verbal/nonverbal cueing, setup/clean-up)? No. TOILET TRANSFER - STEP 2: Does the patient need only setup/clean-up assistance from one helper? No. TOILET TRANSFER - STEP 3: Does the patient need only verbal/nonverbal cueing or touching/steadying/contact guard assistance fro m one helper? Yes. 1. [id number] ADMISSION PERFORMANCE: Supervision or touching assistance CODE: 04 TRANSFERS: CAR: Not assessed/no information CODE: - WALK 10 FEET: Not assessed/no information CODE: - 1 STEP (CURB): Not assessed/no information CODE: - PICKING UP OBJECT: Not assessed/no information CODE: - DOES THE PATIENT USE A WHEELCHAIR/SCOOTER? Q1. DOES THE PATIENT USE A WHEELCHAIR/SCOOTER?: Yes CODE: 1 WHEEL 50 FEET WITH TWO TURNS: WHEEL 50 FEET WITH TWO TURNS - STEP 1: Does the patient complete the activity by him/herself with no assistance (physical, verbal/nonverbal cueing, setup/clean-up)? No. WHEEL 50 FEET WITH TWO TURNS - STEP 2: Does the patient need only setup/clean-up assistance from one helper? No. WHEEL 50 FEET WITH TWO TURNS - STEP 3: Does the patient need only verbal/nonverbal cueing or touching/steadying/contact guard assistance fro m one helper? Yes. 1. [id number] ADMISSION PERFORMANCE: Supervision or touching assistance CODE: 04 INDICATE THE TYPE OF WHEELCHAIR/SCOOTER USED: RR1. INDICATE THE TYPE OF WHEELCHAIR/SCOOTER USED.: Manual CODE: 1 WHEEL 150 FEET: Not assessed/no information CODE: - INDICATE THE TYPE OF WHEELCHAIR/SCOOTER USED: SS1. INDICATE THE TYPE OF WHEELCHAIR/SCOOTER USED.: Manual CODE: 1 BLADDER AND BOWEL: H350. BLADDER CONTINENCE (3-DAY ASSESSMENT PERIOD): Incontinent daily (at least once a day) CODE: 3 H400. BOWEL CONTINENCE (3-DAY ASSESSMENT PERIOD): Always incontinent (no episodes of continent bowel movements) CODE: 3 SIGNATURE PANEL: The following modified sections: 1. [id number] Admission Performance, 1. [id number] Admission Performance, 1. [id number] Admission Performance, 1. [id number] Admission Performance, 1. [id number] Admission Performance, 1. GR8858w Admission Performance, 1. YV8417d Admission Performance, 1. YC0080d Admission Performance , 1. [id number] Admission Performance, 1. [id number] Admission Performance, 1. TM7870V Admission Performanc e, 1. [id number] Admission Performance, 1. [id number] Admission Performance, 1. [id number] Admission Performan ce, 1. [id number] Admission Performance, Q1. Does the patient use a wheelchair/scooter?, 1. KL1446X Admi ssion Performance, RR1. Indicate the type of wheelchair/scooter used., Code, SS1. Indicate the type o f wheelchair/scooter used., H350. Bladder Continence (3-day assessment period), H400. Bowel Continenc e (3-day assessment period) were [electronically] signed by Angela Nix C.N.A. on FriFeb 06 2019 1 6:19:07 T-0600 (Central Standard Time)
[2019-02-06] MEDS: TOPIRAMATE 25 MG TAB PO SCH (20:40)
[2019-02-06] MEDS: DIPHENHYDRAMINE 25 MG TAB/CAP PO PRN (21:48)
[2019-02-07] MEDS: ACETAMINOPHEN 500 MG TAB PO PRN ×2 (01:32→19:56)
[2019-02-07] MEDS: dexAMETHasone 4 MG TAB PO SCH ×3 (08:16→19:57)
[2019-02-07] MEDS: FAMOTIDINE 20 MG TAB PO SCH ×2 (08:16→19:56)
[2019-02-07] MEDS: DOCUSATE NA 100 MG CAP PO SCH ×2 (08:17→19:55)
[2019-02-07] MEDS: levETIRAcetam 500 MG/5 ML OSYR PO SCH (08:19)
[2019-02-07] MEDS: HEPARIN 5000 UNIT/ML 1 ML VIAL SQ SCH ×2 (10:05→21:37)
[2019-02-07] MEDS: DIPHENHYDRAMINE 25 MG TAB/CAP PO PRN (19:55)
[2019-02-07] MEDS: TOPIRAMATE 25 MG TAB PO SCH (19:56)
[2019-02-07] MEDS: PROMOD 30 ML DOSE PO SCH (19:57)
[2019-02-07] MEDS: levETIRAcetam 500 MG TAB PO SCH (19:57)
[2019-02-07] MEDS: MELATONIN 3 MG TABLET PO PRN (22:45)
[2019-02-08] MEDS: PROMOD 30 ML DOSE PO SCH ×2 (08:00→19:05)
[2019-02-08] MEDS: levETIRAcetam 500 MG TAB PO SCH ×2 (08:20→19:04)
[2019-02-08] MEDS: dexAMETHasone 4 MG TAB PO SCH ×2 (08:20→19:04)
[2019-02-08] MEDS: DOCUSATE NA 100 MG CAP PO SCH ×2 (08:21→19:05)
[2019-02-08] MEDS: FAMOTIDINE 20 MG TAB PO SCH ×2 (08:21→19:04)
[2019-02-08] MEDS: HEPARIN 5000 UNIT/ML 1 ML VIAL SQ SCH ×2 (09:03→18:13)
[2019-02-08] MEDS: ACETAMINOPHEN 500 MG TAB PO PRN (09:16)
--- NOTE | 2019-02-08 11:51 | FAST ---
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 Cooper Pompa M.D. 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 EATING: EATING - STEP 1: Does the patient complete the activity by him/herself with no assistance (physical, verbal/nonverbal cueing, setup/clean-up)? No. EATING - STEP 2: Does the patient need only setup/clean-up assistance from one helper? No. EATING - STEP 3: Does the patient need only verbal/nonverbal cueing or touching/steadying/contact guard assistance fro m one helper? Yes. 1. [id number] ADMISSION PERFORMANCE: Supervision or touching assistance CODE: 04 ORAL HYGIENE: ORAL HYGIENE - STEP 1: Does the patient complete the activity by him/herself with no assistance (physical, verbal/nonverbal cueing, setup/clean-up)? No. ORAL HYGIENE - STEP 2: Does the patient need only setup/clean-up assistance from one helper? No. ORAL HYGIENE - STEP 3: Does the patient need only verbal/nonverbal cueing or touching/steadying/contact guard assistance fro m one helper? Yes. 1. [id number] ADMISSION PERFORMANCE: Supervision or touching assistance CODE: 04 TOILETING HYGIENE: TOILETING HYGIENE - STEP 1: Does the patient complete the activity by him/herself with no assistance (physical, verbal/nonverbal cueing, setup/clean-up)? No. TOILETING HYGIENE - STEP 2: Does the patient need only setup/clean-up assistance from one helper? No. TOILETING HYGIENE - STEP 3: Does the patient need only verbal/nonverbal cueing or touching/steadying/contact guard assistance fro m one helper? Yes. 1. [id number] ADMISSION PERFORMANCE: Supervision or touching assistance CODE: 04 BATHING: Not assessed/no information CODE: - DRESSING - UPPER BODY: Not assessed/no information CODE: - DRESSING - LOWER BODY: Not assessed/no information CODE: - PUTTING ON/TAKING OFF FOOTWEAR: Not assessed/no information CODE: - ROLL LEFT AND RIGHT: Not assessed/no information CODE: - SIT TO LYING: SIT TO LYING - STEP 1: Does the patient complete the activity by him/herself with no assistance (physical, verbal/nonverbal cueing, setup/clean-up)? No. SIT TO LYING - STEP 2: Does the patient need only setup/clean-up assistance from one helper? No. SIT TO LYING - STEP 3: Does the patient need only verbal/nonverbal cueing or touching/steadying/contact guard assistance fro m one helper? No. SIT TO LYING - STEP 4: Does the patient need physical assistance - for example lifting or trunk support from one helper - wi th the helper providing less than half of the effort? Yes. 1. [id number] ADMISSION PERFORMANCE: Partial/moderate assistance CODE: 03 LYING TO SITTING: LYING TO SITTING ON SIDE OF BED - STEP 1: Does the patient complete the activity by him/herself with no assistance (physical, verbal/nonverbal cueing, setup/clean-up)? No. LYING TO SITTING ON SIDE OF BED - STEP 2: Does the patient need only setup/clean-up assistance from one helper? No. LYING TO SITTING ON SIDE OF BED - STEP 3: Does the patient need only verbal/nonverbal cueing or touching/steadying/contact guard assistance fro m one helper? No. LYING TO SITTING ON SIDE OF BED - STEP 4: Does the patient need physical assistance - for example lifting or trunk support from one helper - wi th the helper providing less than half of the effort? Yes. 1. [id number] ADMISSION PERFORMANCE: Partial/moderate assistance CODE: 03 SIT TO STAND: Not assessed/no information CODE: - TRANSFERS: BED, CHAIR: CHAIR/[id number] TRANSFER - STEP 1: Does the patient complete the activity by him/herself with no assistance (physical, verbal/nonverbal cueing, setup/clean-up)? No. CHAIR/[id number] TRANSFER - STEP 2: Does the patient need only setup/clean-up assistance from one helper? No. CHAIR/NBX-YE-[id number] TRANSFER - STEP 3: Does the patient need only verbal/nonverbal cueing or touching/steadying/contact guard assistance fro m one helper? Yes. 1. [id number] ADMISSION PERFORMANCE: Supervision or touching assistance CODE: 04 TRANSFER TOILET: TOILET TRANSFER - STEP 1: Does the patient complete the activity by him/herself with no assistance (physical, verbal/nonverbal cueing, setup/clean-up)? No. TOILET TRANSFER - STEP 2: Does the patient need only setup/clean-up assistance from one helper? No. TOILET TRANSFER - STEP 3: Does the patient need only verbal/nonverbal cueing or touching/steadying/contact guard assistance fro m one helper? No. TOILET TRANSFER - STEP 4: Does the patient need physical assistance - for example lifting or trunk support from one helper - wi th the helper providing less than half of the effort? Yes. 1. [id number] ADMISSION PERFORMANCE: Partial/moderate assistance CODE: 03 TRANSFERS: CAR: Not assessed/no information CODE: - WALK 10 FEET: Not assessed/no information CODE: - 1 STEP (CURB): Not assessed/no information CODE: - PICKING UP OBJECT: Not assessed/no information CODE: - DOES THE PATIENT USE A WHEELCHAIR/SCOOTER? CODE: EXPR WHEEL 50 FEET WITH TWO TURNS: Not assessed/no information CODE: - INDICATE THE TYPE OF WHEELCHAIR/SCOOTER USED: CODE: EXPR WHEEL 150 FEET: Not assessed/no information CODE: - INDICATE THE TYPE OF WHEELCHAIR/SCOOTER USED: CODE: EXPR BLADDER AND BOWEL: H350. BLADDER CONTINENCE (3-DAY ASSESSMENT PERIOD): Always continent (no documented incontinence) CODE: 0 H400. BOWEL CONTINENCE (3-DAY ASSESSMENT PERIOD): Always continent CODE: 0 SIGNATURE PANEL: The following modified sections: 1. [id number] Admission Performance, 1. [id number] Admission Performance, 1. [id number] Admission Performance, 1. [id number] Admission Performance, 1. [id number] Admission Performance, 1. [id number] Admission Performance, 1. [id number] Admission Performance, Code, H350. Bladder Continence ( 3-day assessment period), H400. Bowel Continence (3-day assessment period) were [electronically] sign ed by José Hook on FriFeb 08 2019 11:50:50 GMT-0600 (Central Standard Time)
--- NOTE | 2019-02-08 12:23 | FAST ---
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 Cooper Pompa M.D. 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 EATING: Not assessed/no information CODE: - ORAL HYGIENE: ORAL HYGIENE - STEP 1: Does the patient complete the activity by him/herself with no assistance (physical, verbal/nonverbal cueing, setup/clean-up)? No. ORAL HYGIENE - STEP 2: Does the patient need only setup/clean-up assistance from one helper? No. ORAL HYGIENE - STEP 3: Does the patient need only verbal/nonverbal cueing or touching/steadying/contact guard assistance fro m one helper? Yes. 1. [id number] ADMISSION PERFORMANCE: Supervision or touching assistance CODE: 04 TOILETING HYGIENE: Not assessed/no information CODE: - BATHING: SHOWER/BATHE SELF - STEP 1: Does the patient complete the activity by him/herself with no assistance (physical, verbal/nonverbal cueing, setup/clean-up)? No. SHOWER/BATHE SELF - STEP 2: Does the patient need only setup/clean-up assistance from one helper? No. SHOWER/BATHE SELF - STEP 3: Does the patient need only verbal/nonverbal cueing or touching/steadying/contact guard assistance fro m one helper? Yes. 1. [id number] ADMISSION PERFORMANCE: Supervision or touching assistance CODE: 04 DRESSING - UPPER BODY: DRESSING - UPPER BODY - STEP 1: Does the patient complete the activity by him/herself with no assistance (physical, verbal/nonverbal cueing, setup/clean-up)? No. DRESSING - UPPER BODY - STEP 2: Does the patient need only setup/clean-up assistance from one helper? No. DRESSING - UPPER BODY - STEP 3: Does the patient need only verbal/nonverbal cueing or touching/steadying/contact guard assistance fro m one helper? Yes. 1. [id number] ADMISSION PERFORMANCE: Supervision or touching assistance CODE: 04 DRESSING - LOWER BODY: DRESSING - LOWER BODY - STEP 1: Does the patient complete the activity by him/herself with no assistance (physical, verbal/nonverbal cueing, setup/clean-up)? No. DRESSING - LOWER BODY - STEP 2: Does the patient need only setup/clean-up assistance from one helper? No. DRESSING - LOWER BODY - STEP 3: Does the patient need only verbal/nonverbal cueing or touching/steadying/contact guard assistance fro m one helper? Yes. 1. [id number] ADMISSION PERFORMANCE: Supervision or touching assistance CODE: 04 PUTTING ON/TAKING OFF FOOTWEAR: FOOTWEAR - STEP 1: Does the patient complete the activity by him/herself with no assistance (physical, verbal/nonverbal cueing, setup/clean-up)? No. FOOTWEAR - STEP 2: Does the patient need only setup/clean-up assistance from one helper? No. FOOTWEAR - STEP 3: Does the patient need only verbal/nonverbal cueing or touching/steadying/contact guard assistance fro m one helper? Yes. 1. [id number] ADMISSION PERFORMANCE: Supervision or touching assistance CODE: 04 DOES THE PATIENT USE A WHEELCHAIR/SCOOTER? CODE: EXPR INDICATE THE TYPE OF WHEELCHAIR/SCOOTER USED: CODE: EXPR INDICATE THE TYPE OF WHEELCHAIR/SCOOTER USED: CODE: EXPR BLADDER AND BOWEL: CODE: EXPR CODE: EXPR SIGNATURE PANEL: The following modified sections: 1. [id number] Admission Performance, 1. [id number] Admission Performance, 1. IG3825w Admission Performance, 1. [id number] Admission Performance, 1. [id number] Admission Performance were [electronically] signed by MARIAN Mcbride on FriFeb 08 2019 12:22:37 GMT-0600 (Central Standard Time)
[2019-02-08] MEDS: TRAMADOL HCL 50 MG TAB PO PRN ×2 (12:55→19:03)
--- NOTE | 2019-02-08 15:10 | RAD REPORT ---
EXAM DESCRIPTION: RAD - Barium Swallow Modified - 02/08/2019 2:53 pm CLINICAL HISTORY: Dysphagia COMPARISON: <Comparisons> TECHNIQUE: The patient was given liquid, semi-solid and solid forms of barium. Lateral view fluorosc opic imaging was performed in conjunction with speech pathology service. FINDINGS: Laryngeal penetration : cleared with thin Pharyngeal residue: vallecular mod with honey other: osteophytes Total fluoroscopy time: 2 minutes, 17 seconds
[2019-02-08] MEDS: TOPIRAMATE 25 MG TAB PO SCH (19:03)
[2019-02-08] MEDS: MELATONIN 3 MG TABLET PO PRN (19:04)
[2019-02-09] MEDS: TRAMADOL HCL 50 MG TAB PO PRN ×2 (04:04→18:45)
[2019-02-09] MEDS: HEPARIN 5000 UNIT/ML 1 ML VIAL SQ SCH ×2 (07:10→18:08)
[2019-02-09] MEDS: levETIRAcetam 500 MG TAB PO SCH ×2 (07:58→18:45)
[2019-02-09] MEDS: FAMOTIDINE 20 MG TAB PO SCH ×2 (07:59→18:45)
[2019-02-09] MEDS: TOPIRAMATE 25 MG TAB PO SCH ×2 (07:59→18:45)
[2019-02-09] MEDS: DOCUSATE NA 100 MG CAP PO SCH ×2 (07:59→18:45)
[2019-02-09] MEDS: dexAMETHasone 4 MG TAB PO SCH ×2 (08:00→18:45)
[2019-02-09] MEDS: PROMOD 30 ML DOSE PO SCH ×2 (08:00→18:47)
--- NOTE | 2019-02-09 10:31 | FAST ---
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 Cooper Pompa M.D. 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 EATING: EATING - STEP 1: Does the patient complete the activity by him/herself with no assistance (physical, verbal/nonverbal cueing, setup/clean-up)? No. EATING - STEP 2: Does the patient need only setup/clean-up assistance from one helper? Yes. 1. [id number] ADMISSION PERFORMANCE: Setup or clean-up assistance CODE: 05 ORAL HYGIENE: ORAL HYGIENE - STEP 1: Does the patient complete the activity by him/herself with no assistance (physical, verbal/nonverbal cueing, setup/clean-up)? No. ORAL HYGIENE - STEP 2: Does the patient need only setup/clean-up assistance from one helper? No. ORAL HYGIENE - STEP 3: Does the patient need only verbal/nonverbal cueing or touching/steadying/contact guard assistance fro m one helper? Yes. 1. [id number] ADMISSION PERFORMANCE: Supervision or touching assistance CODE: 04 TOILETING HYGIENE: TOILETING HYGIENE - STEP 1: Does the patient complete the activity by him/herself with no assistance (physical, verbal/nonverbal cueing, setup/clean-up)? No. TOILETING HYGIENE - STEP 2: Does the patient need only setup/clean-up assistance from one helper? No. TOILETING HYGIENE - STEP 3: Does the patient need only verbal/nonverbal cueing or touching/steadying/contact guard assistance fro m one helper? Yes. 1. [id number] ADMISSION PERFORMANCE: Supervision or touching assistance CODE: 04 BATHING: Not assessed/no information CODE: - DRESSING - UPPER BODY: Not assessed/no information CODE: - DRESSING - LOWER BODY: Not assessed/no information CODE: - PUTTING ON/TAKING OFF FOOTWEAR: Not assessed/no information CODE: - ROLL LEFT AND RIGHT: Not assessed/no information CODE: - SIT TO LYING: Not assessed/no information CODE: - LYING TO SITTING: LYING TO SITTING ON SIDE OF BED - STEP 1: Does the patient complete the activity by him/herself with no assistance (physical, verbal/nonverbal cueing, setup/clean-up)? No. LYING TO SITTING ON SIDE OF BED - STEP 2: Does the patient need only setup/clean-up assistance from one helper? No. LYING TO SITTING ON SIDE OF BED - STEP 3: Does the patient need only verbal/nonverbal cueing or touching/steadying/contact guard assistance fro m one helper? Yes. 1. [id number] ADMISSION PERFORMANCE: Supervision or touching assistance CODE: 04 SIT TO STAND: SIT TO STAND - STEP 1: Does the patient complete the activity by him/herself with no assistance (physical, verbal/nonverbal cueing, setup/clean-up)? No. SIT TO STAND - STEP 2: Does the patient need only setup/clean-up assistance from one helper? No. SIT TO STAND - STEP 3: Does the patient need only verbal/nonverbal cueing or touching/steadying/contact guard assistance fro m one helper? Yes. 1. [id number] ADMISSION PERFORMANCE: Supervision or touching assistance CODE: 04 TRANSFERS: BED, CHAIR: CHAIR/[id number] TRANSFER - STEP 1: Does the patient complete the activity by him/herself with no assistance (physical, verbal/nonverbal cueing, setup/clean-up)? No. CHAIR/[id number] TRANSFER - STEP 2: Does the patient need only setup/clean-up assistance from one helper? No. CHAIR/[id number] TRANSFER - STEP 3: Does the patient need only verbal/nonverbal cueing or touching/steadying/contact guard assistance fro m one helper? Yes. 1. [id number] ADMISSION PERFORMANCE: Supervision or touching assistance CODE: 04 TRANSFER TOILET: TOILET TRANSFER - STEP 1: Does the patient complete the activity by him/herself with no assistance (physical, verbal/nonverbal cueing, setup/clean-up)? No. TOILET TRANSFER - STEP 2: Does the patient need only setup/clean-up assistance from one helper? No. TOILET TRANSFER - STEP 3: Does the patient need only verbal/nonverbal cueing or touching/steadying/contact guard assistance fro m one helper? Yes. 1. [id number] ADMISSION PERFORMANCE: Supervision or touching assistance CODE: 04 TRANSFERS: CAR: Not assessed/no information CODE: - WALK 10 FEET: Not assessed/no information CODE: - 1 STEP (CURB): Not assessed/no information CODE: - PICKING UP OBJECT: Not assessed/no information CODE: - DOES THE PATIENT USE A WHEELCHAIR/SCOOTER? CODE: EXPR WHEEL 50 FEET WITH TWO TURNS: Not assessed/no information CODE: - INDICATE THE TYPE OF WHEELCHAIR/SCOOTER USED: CODE: EXPR WHEEL 150 FEET: Not assessed/no information CODE: - INDICATE THE TYPE OF WHEELCHAIR/SCOOTER USED: CODE: EXPR BLADDER AND BOWEL: H350. BLADDER CONTINENCE (3-DAY ASSESSMENT PERIOD): Always continent (no documented incontinence) CODE: 0 H400. BOWEL CONTINENCE (3-DAY ASSESSMENT PERIOD): Always continent CODE: 0 SIGNATURE PANEL: The following modified sections: 1. [id number] Admission Performance, 1. [id number] Admission Performance, 1. [id number] Admission Performance, 1. RX1570M Admission Performance, 1. VS0433U Admission Performance, 1. EU6460K Admission Performance, 1. [id number] Admission Performance, Code, H350. Bladder Continence ( 3-day assessment period), H400. Bowel Continence (3-day assessment period) were [electronically] sign ed by José Hook on FriFeb 09 2019 10:30:55 GMT-0600 (Central Standard Time)
[2019-02-09] MEDS: MELATONIN 3 MG TABLET PO PRN (18:46)
[2019-02-09] MEDS: ACETAMINOPHEN 500 MG TAB PO PRN (22:18)
[2019-02-09] MEDS: DIPHENHYDRAMINE 25 MG TAB/CAP PO PRN (22:18)
[2019-02-10] MEDS: SUMATRIPTAN SUCC 6MG/0.5ML VIAL SQ PRN (02:11)
[2019-02-10] MEDS: TRAMADOL HCL 50 MG TAB PO PRN ×2 (03:25→10:55)
[2019-02-10] MEDS: HEPARIN 5000 UNIT/ML 1 ML VIAL SQ SCH ×2 (07:35→19:13)
[2019-02-10] MEDS: FAMOTIDINE 20 MG TAB PO SCH ×2 (08:55→20:32)
[2019-02-10] MEDS: DOCUSATE NA 100 MG CAP PO SCH ×2 (08:55→20:00)
[2019-02-10] MEDS: dexAMETHasone 4 MG TAB PO SCH ×2 (08:55→20:32)
[2019-02-10] MEDS: TOPIRAMATE 25 MG TAB PO SCH ×2 (08:55→20:32)
[2019-02-10] MEDS: levETIRAcetam 500 MG TAB PO SCH ×2 (08:56→20:32)
[2019-02-10] MEDS: PROMOD 30 ML DOSE PO SCH ×2 (08:56→20:30)
--- NOTE | 2019-02-10 15:21 | FAST ---
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 Cooper Pompa M.D. 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 EATING: Not assessed/no information CODE: - ORAL HYGIENE: ORAL HYGIENE - STEP 1: Does the patient complete the activity by him/herself with no assistance (physical, verbal/nonverbal cueing, setup/clean-up)? No. ORAL HYGIENE - STEP 2: Does the patient need only setup/clean-up assistance from one helper? No. ORAL HYGIENE - STEP 3: Does the patient need only verbal/nonverbal cueing or touching/steadying/contact guard assistance fro m one helper? Yes. 1. [id number] ADMISSION PERFORMANCE: Supervision or touching assistance CODE: 04 TOILETING HYGIENE: Not assessed/no information CODE: - BATHING: SHOWER/BATHE SELF - STEP 1: Does the patient complete the activity by him/herself with no assistance (physical, verbal/nonverbal cueing, setup/clean-up)? No. SHOWER/BATHE SELF - STEP 2: Does the patient need only setup/clean-up assistance from one helper? No. SHOWER/BATHE SELF - STEP 3: Does the patient need only verbal/nonverbal cueing or touching/steadying/contact guard assistance fro m one helper? Yes. 1. [id number] ADMISSION PERFORMANCE: Supervision or touching assistance CODE: 04 DRESSING - UPPER BODY: DRESSING - UPPER BODY - STEP 1: Does the patient complete the activity by him/herself with no assistance (physical, verbal/nonverbal cueing, setup/clean-up)? No. DRESSING - UPPER BODY - STEP 2: Does the patient need only setup/clean-up assistance from one helper? No. DRESSING - UPPER BODY - STEP 3: Does the patient need only verbal/nonverbal cueing or touching/steadying/contact guard assistance fro m one helper? Yes. 1. [id number] ADMISSION PERFORMANCE: Supervision or touching assistance CODE: 04 DRESSING - LOWER BODY: DRESSING - LOWER BODY - STEP 1: Does the patient complete the activity by him/herself with no assistance (physical, verbal/nonverbal cueing, setup/clean-up)? No. DRESSING - LOWER BODY - STEP 2: Does the patient need only setup/clean-up assistance from one helper? No. DRESSING - LOWER BODY - STEP 3: Does the patient need only verbal/nonverbal cueing or touching/steadying/contact guard assistance fro m one helper? Yes. 1. [id number] ADMISSION PERFORMANCE: Supervision or touching assistance CODE: 04 PUTTING ON/TAKING OFF FOOTWEAR: FOOTWEAR - STEP 1: Does the patient complete the activity by him/herself with no assistance (physical, verbal/nonverbal cueing, setup/clean-up)? No. FOOTWEAR - STEP 2: Does the patient need only setup/clean-up assistance from one helper? No. FOOTWEAR - STEP 3: Does the patient need only verbal/nonverbal cueing or touching/steadying/contact guard assistance fro m one helper? Yes. 1. [id number] ADMISSION PERFORMANCE: Supervision or touching assistance CODE: 04 DOES THE PATIENT USE A WHEELCHAIR/SCOOTER? CODE: EXPR INDICATE THE TYPE OF WHEELCHAIR/SCOOTER USED: CODE: EXPR INDICATE THE TYPE OF WHEELCHAIR/SCOOTER USED: CODE: EXPR BLADDER AND BOWEL: CODE: EXPR CODE: EXPR SIGNATURE PANEL: The following modified sections: 1. [id number] Admission Performance, 1. JR7814k Admission Performance, 1. TT6237x Admission Performance, 1. PS2600z Admission Performance, 1. [id number] Admission Performance were [electronically] signed by MARIAN Mcbride on FriFeb 10 2019 15:20:18 GMT-0600 (Central Standard Time)
--- NOTE | 2019-02-10 17:52 | R.PN ---
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 Pt denied any Shortness of Breath. She had hallucinations, seeing roaches crawling on the o[place]. This has continued since prior to her t umor resection. WBC was elevated to 16.8 with 91% neutrophils. Will repeat in the AM. Modified barium studies showed laryngeal penetration, cleared with repeat swallowing. Ambulated 1000' with standby assistance using a rolling walker and standby assistance. VITAL SIGNS Temperature: 97.8 F SBP/DBP: 113/77 Pulse: 82 Resp: 16 MEDICATION ALLERGIES: No Known Drug Allergies (NKDA) ENVIRONMENTAL ALLERGIES: - Substance Allergies None Known - Other Allergies None Known NURSING: - Shower allowing shower - Bladder care per protocol - Skin care per protocol PRECAUTIONS: - Aspiration Precaution 1 to 1 supervision with all po intake All meals in the dysphagia dining room No straws Seated at 90 degrees while eating and 30 minutes after meals - Fall Precaution Bed alarm TABS alarm Wheel chair alarm ACTIVITIES OOB only with supervision THERAPIES: - Dietary and Nutrition Adequate Nutrition. Nutritional Education. Nutritional Supplements. - Speech Therapy Cognitive Training. Dysphagia Therapy. Expressive Language Skills. Receptive Language Skills. PHYSICAL EXAM - Gen Alert and awake Lying in bed No apparent distress Oriented to: person, time, and place - Skin No skin breakdown. Normacephalic - Eyes No abnormalities - ENMT No abnormalities - Neck No abnormalities - CVS RRR - Chest No abnormalities - Resp Clear to auscultation - Abd Soft - GI Non distended Deferred - No abnormalities - Ext No significant edema - MSK 4/5 weakness in both lower extremities. - Neuro No focal deficits - Psych No abnormalities ASSESSMENT: Pt. 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 was independent/mod-I in Locomotion, Endu felecia, Self-Care, Balance, Transfers Control, Safety Awareness, Social Cognition, Communication, and Sphincter Control; and she had good Sphincter Control.Currently, she has deficits of Locomotion, Self -Care, Endurance, Transfers Control, Balance, Safety Awareness, Social Cognition, Ambulation, Communi cation, Safety Awareness and Self-Care, and Sphincter Control.Pt. is now referred to [facility] for acute in-patient rehabilitation in order to maximize patient's functional indep endence in activities of daily living, strength, ROM, and mobility.- Rehab Goal Patient has realistic goal of being discharged at assistance level 6-Lilian to reside at Home with Fam nancy/Relatives. MDM/PLAN: - Physical Therapy Gait dysfunction - to improve, our physical therapists will perform initial evaluation of pt's statu s upon admission and devise an individualized program for Gait Training, and Wheel Chair mobility Inability to transfer - to improve, our physical therapists will perform initial evaluation of pt's status upon admission and devise an individualized program for Bed mobility Need for home safety evaluation - to improve, our physical therapists will perform initial evaluatio n of pt's status upon admission and devise an individualized program for Home Evaluation Need in caregiver upon discharge - to improve, our physical therapists will perform initial evaluati on of pt's status upon admission and devise an individualized program for Caregiver Training New precaution - to improve, our physical therapists will perform initial evaluation of pt's status upon admission and devise an individualized program for Patient precaution education Edema - to improve, our physical therapists will perform initial evaluation of pt's status upon admis brenna and devise an individualized program for Elevation Training, and Lymphedema Therapy Poor balance - to improve, our physical therapists will perform initial evaluation of pt's status up on admission and devise an individualized program for Balance Training Poor endurance - to improve, our physical therapists will perform initial evaluation of pt's status upon admission and devise an individualized program for Endurance Training Weakness - to improve, our physical therapists will perform initial evaluation of pt's status upon a dmission and devise an individualized program for Aquatic Therapy, Neuromuscular Reeducation, and Str engthening Achieving independence - to improve, our physical therapists will perform initial evaluation of pt's status upon admission and devise an individualized program for Community Reintegration Activities - Occupational Therapy ADL deficits - to improve, our occupation therapists will perform initial evaluation of pt's status upon admission and devise an individualized program for Bathing, Bed mobility, Community Reintegratio n, Cooking, Dressing, Eating, Fine Motor Skills, Grooming, Homemaking, Kitchen Mobility, Laundry, Pat ient Education, Safety Awareness, Splinting - Positioning, Transfers(Toilet, Tub, Shower), and Wheel Chair Management Cognitive deficits - to improve, our occupation therapists will perform initial evaluation of pt's s tatus upon admission and devise an individualized program for Cognition - orientation Need for managed care nurse - to improve, our occupation therapists will perform initial evaluation of pt's status upon admission and devise an individualized program for Caregiver Training Weakness - to improve, our occupation therapists will perform initial evaluation of pt's status upon admission and devise an individualized program for Aquatic Therapy, Balance, Endurance, UE ROM, and UE strengthening - Other See attached MAR (Medication Administration Record) - Diet Type Continue SOFT - Diet - Solid Texture Continue GI SOFT - Diet - Liquid Texture Continue [place]-Thickened - Tube Feed Continue N/A - Bladder care per protocol - Aspiration Precaution 1 to 1 supervision with all po intake All meals in the dysphagia dining room No straws Seated at 90 degrees while eating and 30 minutes after meals - Fall Precaution Bed alarm TABS alarm Wheel chair alarm - Skin care per protocol - Shower allowing shower FUNCTIONAL STATUS: UPDATED AT WEEKLY TEAM CONFERENCE - Bladder Same accident frequency: 7-Ind - No accidents in the past 7 days - Bowel Same accident frequency: 7-Ind - No accidents in the past 7 days - Walking Same score based on distance walked: 1(<=50ft) - Wheelchair Same score based on distance traveled: 1(<=50ft) FUNCTIONAL STATUS: - Self-Care A. Eating Ind B. Grooming Lilian C. Bathing sup D. Dressing - Upper Lilian E. Dressing - Lower sup F. Toileting modA - Sphincter Control G. Bladder control Lilian H. Bowel control Lilian - Transfers Control I. Bed/Chair/Wheelchair sup J. Toilet Lilian K. Tub/Shower sup - Locomotion L. Walk/Wheelchair (B) sup M. Stairs [place] - Communication N. Comprehension (B) sup O. Expression (B) sup - Social Cognition P. Social Interaction Ind Q. Problem Solving Lilian R. Memory Lilian - Endurance Good - Balance Good - Safety Awareness Good QI SCORES: - Self-Care A. Eating 04-Supervision or touching assistance B. Oral hygiene 03-Partial/moderate assistance C. Toileting hygiene 02-Substantial/maximal assistance E. Shower/bathe self 88-Not attempted due to medical condition or safety concerns F. Upper body dressing 02-Substantial/maximal assistance G. Lower body dressing 02-Substantial/maximal assistance H. Putting on/taking off footwear 01-Dependent - Mobility A. Roll left and right 03-Partial/moderate assistance B. Sit to lying 02-Substantial/maximal assistance C. Lying to sitting on side of bed 03-Partial/moderate assistance D. Sit to stand 02-Substantial/maximal assistance E. Chair/kjw-so-zwphi transfer 02-Substantial/maximal assistance F. Toilet transfer 02-Substantial/maximal assistance G. Car transfer 88-Not attempted due to medical condition or safety concerns I. Walk 10 feet 88-Not attempted due to medical condition or safety concerns J. Walk 50 feet with two turns 88-Not attempted due to medical condition or safety concerns K. Walk 150 feet 88-Not attempted due to medical condition or safety concerns L. Walking 10 feet on uneven surfaces 88-Not attempted due to medical condition or safety concerns M. 1 step (curb) 88-Not attempted due to medical condition or safety concerns N. 4 steps 88-Not attempted due to medical condition or safety concerns O. 12 steps 88-Not attempted due to medical condition or safety concerns P. Picking up object 88-Not attempted due to medical condition or safety concerns R. Wheel 50 feet with two turns 88-Not attempted due to medical condition or safety concerns S. Wheel 150 feet 88-Not attempted due to medical condition or safety concerns - Bladder and Bowel Bladder continence 9-Not applicable Bowel continence 3-Always incontinent - Endurance Poor - Balance Poor - Safety Awareness Poor CURRENT FUNC. DEFICITS: Self-Care, Mobility, Endurance, Balance, and Safety Awareness SIGNATURE PANEL: (FRAME EXPANDER)
[2019-02-10] MEDS: DIPHENHYDRAMINE 25 MG TAB/CAP PO PRN (20:32)
[2019-02-11] MEDS: HEPARIN 5000 UNIT/ML 1 ML VIAL SQ SCH ×2 (07:10→18:49)
[2019-02-11] MEDS: SUMATRIPTAN SUCC 6MG/0.5ML VIAL SQ PRN (09:32)
[2019-02-11] MEDS: DOCUSATE NA 100 MG CAP PO SCH ×3 (09:33→20:57)
[2019-02-11] MEDS: FAMOTIDINE 20 MG TAB PO SCH ×2 (09:34→20:58)
[2019-02-11] MEDS: dexAMETHasone 4 MG TAB PO SCH (09:34)
[2019-02-11] MEDS: TOPIRAMATE 25 MG TAB PO SCH ×2 (09:34→20:59)
[2019-02-11] MEDS: levETIRAcetam 500 MG TAB PO SCH ×2 (09:34→20:57)
[2019-02-11] MEDS: PROMOD 30 ML DOSE PO SCH ×2 (09:35→20:58)
--- NOTE | 2019-02-11 17:08 | R.PN ---
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 Pt denied any Shortness of Breath. She had hallucinations, seeing roaches crawling on the o[place]a. This has continued since prior to her t umor resection. WBC was elevated to 16.8 with 91% neutrophils. Will repeat in the AM. Modified barium studies showed laryngeal penetration, cleared with repeat swallowing. Ambulated 1000' with standby assistance using a rolling walker and standby assistance. VITAL SIGNS Temperature: 97.8 F SBP/DBP: 105/76 Pulse: 95 Resp: 16 MEDICATION ALLERGIES: No Known Drug Allergies (NKDA) ENVIRONMENTAL ALLERGIES: - Substance Allergies None Known - Other Allergies None Known NURSING: - Shower allowing shower - Bladder care per protocol - Skin care per protocol PRECAUTIONS: - Aspiration Precaution 1 to 1 supervision with all po intake All meals in the dysphagia dining room No straws Seated at 90 degrees while eating and 30 minutes after meals - Fall Precaution Bed alarm TABS alarm Wheel chair alarm ACTIVITIES OOB only with supervision THERAPIES: - Dietary and Nutrition Adequate Nutrition. Nutritional Education. Nutritional Supplements. - Speech Therapy Cognitive Training. Dysphagia Therapy. Expressive Language Skills. Receptive Language Skills. PHYSICAL EXAM - Gen Alert and awake Lying in bed No apparent distress Oriented to: person, time, and place - Skin No skin breakdown. Normacephalic - Eyes No abnormalities - ENMT No abnormalities - Neck No abnormalities - CVS RRR - Chest No abnormalities - Resp Clear to auscultation - Abd Soft - GI Non distended Deferred - No abnormalities - Ext No significant edema - MSK 4/5 weakness in both lower extremities. - Neuro No focal deficits - Psych No abnormalities ASSESSMENT: Pt. 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 was independent/mod-I in Locomotion, Endu felecia, Self-Care, Balance, Transfers Control, Safety Awareness, Social Cognition, Communication, and Sphincter Control; and she had good Sphincter Control.Currently, she has deficits of Locomotion, Self -Care, Endurance, Transfers Control, Balance, Safety Awareness, Social Cognition, Ambulation, Communi cation, Safety Awareness and Self-Care, and Sphincter Control.Pt. is now referred to [facility] for acute in-patient rehabilitation in order to maximize patient's functional indep endence in activities of daily living, strength, ROM, and mobility.- Rehab Goal Patient has realistic goal of being discharged at assistance level 6-Lilian to reside at Home with Fam nancy/Relatives. MDM/PLAN: - Physical Therapy Gait dysfunction - to improve, our physical therapists will perform initial evaluation of pt's statu s upon admission and devise an individualized program for Gait Training, and Wheel Chair mobility Inability to transfer - to improve, our physical therapists will perform initial evaluation of pt's status upon admission and devise an individualized program for Bed mobility Need for home safety evaluation - to improve, our physical therapists will perform initial evaluatio n of pt's status upon admission and devise an individualized program for Home Evaluation Need in caregiver upon discharge - to improve, our physical therapists will perform initial evaluati on of pt's status upon admission and devise an individualized program for Caregiver Training New precaution - to improve, our physical therapists will perform initial evaluation of pt's status upon admission and devise an individualized program for Patient precaution education Edema - to improve, our physical therapists will perform initial evaluation of pt's status upon admi ssion and devise an individualized program for Elevation Training, and Lymphedema Therapy Poor balance - to improve, our physical therapists will perform initial evaluation of pt's status up on admission and devise an individualized program for Balance Training Poor endurance - to improve, our physical therapists will perform initial evaluation of pt's status upon admission and devise an individualized program for Endurance Training Weakness - to improve, our physical therapists will perform initial evaluation of pt's status upon a dmission and devise an individualized program for Aquatic Therapy, Neuromuscular Reeducation, and Str engthening Achieving independence - to improve, our physical therapists will perform initial evaluation of pt's status upon admission and devise an individualized program for Community Reintegration Activities - Occupational Therapy ADL deficits - to improve, our occupation therapists will perform initial evaluation of pt's status upon admission and devise an individualized program for Bathing, Bed mobility, Community Reintegratio n, Cooking, Dressing, Eating, Fine Motor Skills, Grooming, Homemaking, Kitchen Mobility, Laundry, Pat ient Education, Safety Awareness, Splinting - Positioning, Transfers(Toilet, Tub, Shower), and Wheel Chair Management Cognitive deficits - to improve, our occupation therapists will perform initial evaluation of pt's s tatus upon admission and devise an individualized program for Cognition - orientation Need for technical healthcare consultant - to improve, our occupation therapists will perform initial evaluation of pt's status upon admission and devise an individualized program for Caregiver Training Weakness - to improve, our occupation therapists will perform initial evaluation of pt's status upon admission and devise an individualized program for Aquatic Therapy, Balance, Endurance, UE ROM, and UE strengthening - Other See attached MAR (Medication Administration Record) - Diet Type Continue SOFT - Diet - Solid Texture Continue GI SOFT - Diet - Liquid Texture Continue [place]-Thickened - Tube Feed Continue N/A - Bladder care per protocol - Aspiration Precaution 1 to 1 supervision with all po intake All meals in the dysphagia dining room No straws Seated at 90 degrees while eating and 30 minutes after meals - Fall Precaution Bed alarm TABS alarm Wheel chair alarm - Skin care per protocol - Shower allowing shower FUNCTIONAL STATUS: UPDATED AT WEEKLY TEAM CONFERENCE - Bladder Same accident frequency: 7-Ind - No accidents in the past 7 days - Bowel Same accident frequency: 7-Ind - No accidents in the past 7 days - Walking Same score based on distance walked: 1(<=50ft) - Wheelchair Same score based on distance traveled: 1(<=50ft) FUNCTIONAL STATUS: - Self-Care A. Eating Ind B. Grooming Lilian C. Bathing sup D. Dressing - Upper Lilian E. Dressing - Lower sup F. Toileting modA - Sphincter Control G. Bladder control Lilian H. Bowel control Lilian - Transfers Control I. Bed/Chair/Wheelchair sup J. Toilet Lilian K. Tub/Shower sup - Locomotion L. Walk/Wheelchair (B) sup M. Stairs [place] - Communication N. Comprehension (B) sup O. Expression (B) sup - Social Cognition P. Social Interaction Ind Q. Problem Solving Lilian R. Memory Lilian - Endurance Good - Balance Good - Safety Awareness Good QI SCORES: - Self-Care A. Eating 04-Supervision or touching assistance B. Oral hygiene 03-Partial/moderate assistance C. Toileting hygiene 02-Substantial/maximal assistance E. Shower/bathe self 88-Not attempted due to medical condition or safety concerns F. Upper body dressing 02-Substantial/maximal assistance G. Lower body dressing 02-Substantial/maximal assistance H. Putting on/taking off footwear 01-Dependent - Mobility A. Roll left and right 03-Partial/moderate assistance B. Sit to lying 02-Substantial/maximal assistance C. Lying to sitting on side of bed 03-Partial/moderate assistance D. Sit to stand 02-Substantial/maximal assistance E. Chair/yot-lz-[id number] transfer 02-Substantial/maximal assistance F. Toilet transfer 02-Substantial/maximal assistance G. Car transfer 88-Not attempted due to medical condition or safety concerns I. Walk 10 feet 88-Not attempted due to medical condition or safety concerns J. Walk 50 feet with two turns 88-Not attempted due to medical condition or safety concerns K. Walk 150 feet 88-Not attempted due to medical condition or safety concerns L. Walking 10 feet on uneven surfaces 88-Not attempted due to medical condition or safety concerns M. 1 step (curb) 88-Not attempted due to medical condition or safety concerns N. 4 steps 88-Not attempted due to medical condition or safety concerns O. 12 steps 88-Not attempted due to medical condition or safety concerns P. Picking up object 88-Not attempted due to medical condition or safety concerns R. Wheel 50 feet with two turns 88-Not attempted due to medical condition or safety concerns S. Wheel 150 feet 88-Not attempted due to medical condition or safety concerns - Bladder and Bowel Bladder continence 9-Not applicable Bowel continence 3-Always incontinent - Endurance Poor - Balance Poor - Safety Awareness Poor CURRENT FUNC. DEFICITS: Self-Care, Mobility, Endurance, Balance, and Safety Awareness SIGNATURE PANEL: (DATA TECHNICAL LEAD)
[2019-02-11] MEDS: DIPHENHYDRAMINE 25 MG TAB/CAP PO PRN (20:57)
[2019-02-12] MEDS: MELATONIN 3 MG TABLET PO PRN (01:36)
[2019-02-12 07:06] LABS: Absolute Lymphocytes (CBC) 2.7 K/uL (0.7-4.9); Basophils % 0.3 % (0-1.3); RBC Red Blood Cell Count 3.91 M/uL (3.86-4.86)
[2019-02-12] MEDS: ACETAMINOPHEN 500 MG TAB PO PRN ×2 (07:15→17:09)
[2019-02-12] MEDS: HEPARIN 5000 UNIT/ML 1 ML VIAL SQ SCH (07:44)
[2019-02-12] MEDS: DOCUSATE NA 100 MG CAP PO SCH ×2 (08:00→20:00)
[2019-02-12] MEDS: FAMOTIDINE 20 MG TAB PO SCH ×2 (08:23→21:28)
[2019-02-12] MEDS: levETIRAcetam 500 MG TAB PO SCH ×2 (08:23→21:28)
[2019-02-12] MEDS: TOPIRAMATE 25 MG TAB PO SCH ×2 (08:24→21:28)
[2019-02-12] MEDS: dexAMETHasone 4 MG TAB PO SCH (08:24)
[2019-02-12] MEDS: PROMOD 30 ML DOSE PO SCH ×2 (08:25→21:30)
[2019-02-12 09:22] LABS: Blood Morphology Comment NOT SEEN (NOT SEEN); Platelet Estimate ADEQ
[2019-02-12 09:40] LABS: Albumin 3.2 g/dL (3.4-5.0); Magnesium 2.3 mg/dL (1.8-2.4); Potassium 3.2 mmol/L (3.5-5.1); Prealbumin 52.3 mg/dL (20-40)
--- NOTE | 2019-02-12 09:55 | P.RH.PN ---
Estimated Length of Stay: 13 Expected Discharge Date: 02/18/19 Discharge Disposition Plan: Home Family Support: Yes Detention Goal: Mobility, Transfers, Self Care Vital Signs: Last Vital Signs Temp 97.8 F 02/11/19 18:44 Pulse 97 H 02/11/19 18:44 Resp 16 02/11/19 18:44 BP 130/83 02/11/19 18:44 Pulse Ox 100 02/11/19 18:44 Laboratory: Laboratory Last Values WBC 14.9 K/uL (4.3-10.9) H 02/12/19 06:53 RBC 3.91 M/uL (3.86-4.86) 02/12/19 06:53 Hgb 12.5 g/dL (12.0-15.0) 02/12/19 06:53 Hct 37.0 % (36.0-45.0) D 02/12/19 06:53 MCV 94.7 fL (80-100) 02/12/19 06:53 MCH 31.9 pg (27.0-35.0) 02/12/19 06:53 MCHC 33.7 g/dL (32.0-36.0) 02/12/19 06:53 RDW 14.0 % (12.1-15.2) D 02/12/19 06:53 Plt Count 231 K/uL (152-406) 02/12/19 06:53 MPV 8.0 fL (7.6-11.3) D 02/12/19 06:53 Neutrophils % 75.3 % (41.7-73.7) H 02/12/19 06:53 Lymphocytes % 18.0 % (15.3-44.8) 02/12/19 06:53 Monocytes % 6.2 % (3.3-12.3) 02/12/19 06:53 Eosinophils % 0.2 % (0-4.4) 02/12/19 06:53 Basophils % 0.3 % (0-1.3) 02/12/19 06:53 Absolute Neutrophils 11.2 K/uL (1.8-8.0) H 02/12/19 06:53 Segmented Neutrophils 75 % (40-80) 02/12/19 06:53 Band Neutrophils 1 % (0-1) 02/12/19 06:53 Absolute Lymphocytes 2.7 K/uL (0.7-4.9) 02/12/19 06:53 Lymphocytes 17 % (15-42) 02/12/19 06:53 Monocytes 4 % (0-10) 02/12/19 06:53 Absolute Monocytes 0.9 K/uL (0.1-1.3) 02/12/19 06:53 Absolute Eosinophils 0.0 K/uL (0-0.5) 02/12/19 06:53 Absolute Basophils 0.0 K/uL (0-0.5) 02/12/19 06:53 Metamyelocytes 1 % (0-0) H 02/12/19 06:53 Myelocytes 1 % (0-0) H 02/12/19 06:53 Atypical Lymphocytes 1 02/12/19 06:53 Morphology Comment Not seen (NOT SEEN) 02/12/19 06:53 Sodium 138 mmol/L (136-145) 02/12/19 08:51 Potassium 3.2 mmol/L (3.5-5.1) L 02/12/19 08:51 Chloride 102 mmol/L (98-107) 02/12/19 08:51 Carbon Dioxide 30 mmol/L (21-32) 02/12/19 08:51 BUN 25 mg/dL (7-18) H 02/12/19 08:51 Creatinine 0.91 mg/dL (0.55-1.3) 02/12/19 08:51 Estimated GFR 62 mL/min (=/>90) L 02/12/19 08:51 Glucose 113 mg/dL (74-106) H 02/12/19 08:51 Calcium 8.2 mg/dL (8.5-10.1) L 02/12/19 08:51 Magnesium 2.3 mg/dL (1.8-2.4) 02/12/19 08:51 Albumin 3.2 g/dL (3.4-5.0) L 02/12/19 08:51 Prealbumin 52.3 mg/dL (20-40) H 02/12/19 08:51 Urine Color Yellow 02/06/19 04:18 Urine Appearance Clear 02/06/19 04:18 Urine pH 6.5 (5.0-7.0) 02/06/19 04:18 Ur Specific Rheems 1.020 (1.005-1.030) 02/06/19 04:18 Urine Ketones Negative (NEG) 02/06/19 04:18 Urine Blood Negative (NEG) 02/06/19 04:18 Urine Nitrite Negative (NEG) 02/06/19 04:18 Urine Bilirubin Negative (NEG) 02/06/19 04:18 Urine Urobilinogen 0.2 mg/dL (0.2-1.0) 02/06/19 04:18 Ur Leukocyte Esterase Negative (NEG) 02/06/19 04:18 Urine RBC None seen /HPF (NONE SEEN) 02/06/19 04:18 Urine WBC <5 /HPF (<5) 02/06/19 04:18 Ur Squamous Epith Cells <5 /HPF (NONE SEEN) 02/06/19 04:18 Urine Bacteria <20 /HPF (<20) 02/06/19 04:18 Urine Culture Reflexed Not needed 02/06/19 04:18 Urine Glucose Negative (NEG) 02/06/19 04:18 Urine Total Protein Negative (NEG) 02/06/19 04:18 Weight: 185 lb Wound Present: No Closed Surgical Incision Present: Yes Negative Pressure Wound Therapy Present: No Physician Update: Labs reviewed and are stable. WBCs are lower and prealbumin is normal. Headache is better. She has difficulty focusing on even simple tasks. She has poor safety awareness. Walking 250' and up and down steps with standby assistance. Medical Issues: Patient is always continent with bladder and bowel. Speech Therapy Update: Patient presents with moderate-severe cognitive- linguistic deficits characterized by inattention, distractibility, confusion, excessive talking, and poor safety awareness, insight, and judgment. Patient also presents with decreased short-term and working memory capacity. Patient is tolerating regular solids/thin liquids without difficulty. Patient will require constant SUPV on d/c. Patient would benefit from more ST to address aforementioned deficits. Summary: Patient's care plan and intermediate frame tender goals have been reviewed and revised as necessary. Please see the Rehabilitation Signature page for all necessary signatures.
[2019-02-12] MEDS ORDERED: ONDANSETRON 4 MG (ODT) TAB PO PRN (13:54)
[2019-02-12] MEDS: TRAMADOL HCL 50 MG TAB PO PRN (14:00)
[2019-02-12] MEDS ORDERED: POTASSIUM CL SA 10 MEQ TAB PO ONE (15:02)
--- NOTE | 2019-02-12 15:02 | FAST ---
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 Cooper Pompa M.D. 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 EATING: Not assessed/no information CODE: - ORAL HYGIENE: ORAL HYGIENE - STEP 1: Does the patient complete the activity by him/herself with no assistance (physical, verbal/nonverbal cueing, setup/clean-up)? No. ORAL HYGIENE - STEP 2: Does the patient need only setup/clean-up assistance from one helper? No. ORAL HYGIENE - STEP 3: Does the patient need only verbal/nonverbal cueing or touching/steadying/contact guard assistance fro m one helper? Yes. 1. [id number] ADMISSION PERFORMANCE: Supervision or touching assistance CODE: 04 TOILETING HYGIENE: TOILETING HYGIENE - STEP 1: Does the patient complete the activity by him/herself with no assistance (physical, verbal/nonverbal cueing, setup/clean-up)? No. TOILETING HYGIENE - STEP 2: Does the patient need only setup/clean-up assistance from one helper? No. TOILETING HYGIENE - STEP 3: Does the patient need only verbal/nonverbal cueing or touching/steadying/contact guard assistance fro m one helper? Yes. 1. [id number] ADMISSION PERFORMANCE: Supervision or touching assistance CODE: 04 BATHING: SHOWER/BATHE SELF - STEP 1: Does the patient complete the activity by him/herself with no assistance (physical, verbal/nonverbal cueing, setup/clean-up)? No. SHOWER/BATHE SELF - STEP 2: Does the patient need only setup/clean-up assistance from one helper? No. SHOWER/BATHE SELF - STEP 3: Does the patient need only verbal/nonverbal cueing or touching/steadying/contact guard assistance fro m one helper? Yes. 1. [id number] ADMISSION PERFORMANCE: Supervision or touching assistance CODE: 04 DRESSING - UPPER BODY: DRESSING - UPPER BODY - STEP 1: Does the patient complete the activity by him/herself with no assistance (physical, verbal/nonverbal cueing, setup/clean-up)? No. DRESSING - UPPER BODY - STEP 2: Does the patient need only setup/clean-up assistance from one helper? Yes. 1. ADMISSION PERFORMANCE: Setup or clean-up assistance CODE: 05 DRESSING - LOWER BODY: DRESSING - LOWER BODY - STEP 1: Does the patient complete the activity by him/herself with no assistance (physical, verbal/nonverbal cueing, setup/clean-up)? No. DRESSING - LOWER BODY - STEP 2: Does the patient need only setup/clean-up assistance from one helper? No. DRESSING - LOWER BODY - STEP 3: Does the patient need only verbal/nonverbal cueing or touching/steadying/contact guard assistance fro m one helper? Yes. 1. ADMISSION PERFORMANCE: Supervision or touching assistance CODE: 04 PUTTING ON/TAKING OFF FOOTWEAR: FOOTWEAR - STEP 1: Does the patient complete the activity by him/herself with no assistance (physical, verbal/nonverbal cueing, setup/clean-up)? No. FOOTWEAR - STEP 2: Does the patient need only setup/clean-up assistance from one helper? No. FOOTWEAR - STEP 3: Does the patient need only verbal/nonverbal cueing or touching/steadying/contact guard assistance fro m one helper? No. FOOTWEAR - STEP 4: Does the patient need physical assistance - for example lifting or trunk support from one helper - wi th the helper providing less than half of the effort? No. FOOTWEAR - STEP 5: Does the patient need physical assistance - for example lifting or trunk support from one helper - wi th the helper providing more than half of the effort? Yes. 1. ADMISSION PERFORMANCE: Substantial/maximal assistance CODE: 02 DOES THE PATIENT USE A WHEELCHAIR/SCOOTER? CODE: EXPR INDICATE THE TYPE OF WHEELCHAIR/SCOOTER USED: CODE: EXPR INDICATE THE TYPE OF WHEELCHAIR/SCOOTER USED: CODE: EXPR BLADDER AND BOWEL: CODE: EXPR CODE: EXPR SIGNATURE PANEL: The following modified sections: 1. [id number] Admission Performance, 1. [id number] Admission Performance, 1. [id number] Admission Performance, 1. [id number] Admission Performance, 1. [id number] Admission Performance, 1. [id number] Admission Performance, 1. [id number] Admission Performance, 1. [id number] Admission Performance were [electronically] signed by MARIAN Mcbride on FriFeb 12 2019 15:00:37 GMT-0600 ([place] Standard Time)
[2019-02-12] MEDS: APIXABAN 2.5 MG TABLET PO SCH (21:29)
[2019-02-12] MEDS: DIPHENHYDRAMINE 25 MG TAB/CAP PO PRN (21:29)
--- NOTE | 2019-02-13 02:49 | FAST ---
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 Cooper Pompa M.D. 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 EATING: Not assessed/no information CODE: - ORAL HYGIENE: ORAL HYGIENE - STEP 1: Does the patient complete the activity by him/herself with no assistance (physical, verbal/nonverbal cueing, setup/clean-up)? No. ORAL HYGIENE - STEP 2: Does the patient need only setup/clean-up assistance from one helper? Yes. 1. [id number] ADMISSION PERFORMANCE: Setup or clean-up assistance CODE: 05 TOILETING HYGIENE: TOILETING HYGIENE - STEP 1: Does the patient complete the activity by him/herself with no assistance (physical, verbal/nonverbal cueing, setup/clean-up)? No. TOILETING HYGIENE - STEP 2: Does the patient need only setup/clean-up assistance from one helper? No. TOILETING HYGIENE - STEP 3: Does the patient need only verbal/nonverbal cueing or touching/steadying/contact guard assistance fro m one helper? Yes. 1. [id number] ADMISSION PERFORMANCE: Supervision or touching assistance CODE: 04 BATHING: Not assessed/no information CODE: - DRESSING - UPPER BODY: Not assessed/no information CODE: - DRESSING - LOWER BODY: Not assessed/no information CODE: - PUTTING ON/TAKING OFF FOOTWEAR: Not assessed/no information CODE: - ROLL LEFT AND RIGHT: ROLL LEFT AND RIGHT - STEP 1: Does the patient complete the activity by him/herself with no assistance (physical, verbal/nonverbal cueing, setup/clean-up)? No. ROLL LEFT AND RIGHT - STEP 2: Does the patient need only setup/clean-up assistance from one helper? No. ROLL LEFT AND RIGHT - STEP 3: Does the patient need only verbal/nonverbal cueing or touching/steadying/contact guard assistance fro m one helper? Yes. 1. [id number] ADMISSION PERFORMANCE: Supervision or touching assistance CODE: 04 SIT TO LYING: SIT TO LYING - STEP 1: Does the patient complete the activity by him/herself with no assistance (physical, verbal/nonverbal cueing, setup/clean-up)? No. SIT TO LYING - STEP 2: Does the patient need only setup/clean-up assistance from one helper? No. SIT TO LYING - STEP 3: Does the patient need only verbal/nonverbal cueing or touching/steadying/contact guard assistance fro m one helper? Yes. 1. [id number] ADMISSION PERFORMANCE: Supervision or touching assistance CODE: 04 LYING TO SITTING: LYING TO SITTING ON SIDE OF BED - STEP 1: Does the patient complete the activity by him/herself with no assistance (physical, verbal/nonverbal cueing, setup/clean-up)? No. LYING TO SITTING ON SIDE OF BED - STEP 2: Does the patient need only setup/clean-up assistance from one helper? No. LYING TO SITTING ON SIDE OF BED - STEP 3: Does the patient need only verbal/nonverbal cueing or touching/steadying/contact guard assistance fro m one helper? Yes. 1. [id number] ADMISSION PERFORMANCE: Supervision or touching assistance CODE: 04 SIT TO STAND: SIT TO STAND - STEP 1: Does the patient complete the activity by him/herself with no assistance (physical, verbal/nonverbal cueing, setup/clean-up)? No. SIT TO STAND - STEP 2: Does the patient need only setup/clean-up assistance from one helper? No. SIT TO STAND - STEP 3: Does the patient need only verbal/nonverbal cueing or touching/steadying/contact guard assistance fro m one helper? Yes. 1. [id number] ADMISSION PERFORMANCE: Supervision or touching assistance CODE: 04 TRANSFERS: BED, CHAIR: Not assessed/no information CODE: - TRANSFER TOILET: TOILET TRANSFER - STEP 1: Does the patient complete the activity by him/herself with no assistance (physical, verbal/nonverbal cueing, setup/clean-up)? No. TOILET TRANSFER - STEP 2: Does the patient need only setup/clean-up assistance from one helper? No. TOILET TRANSFER - STEP 3: Does the patient need only verbal/nonverbal cueing or touching/steadying/contact guard assistance fro m one helper? Yes. 1. [id number] ADMISSION PERFORMANCE: Supervision or touching assistance CODE: 04 TRANSFERS: CAR: Not assessed/no information CODE: - WALK 10 FEET: Not assessed/no information CODE: - 1 STEP (CURB): Not assessed/no information CODE: - PICKING UP OBJECT: Not assessed/no information CODE: - DOES THE PATIENT USE A WHEELCHAIR/SCOOTER? CODE: EXPR WHEEL 50 FEET WITH TWO TURNS: Not assessed/no information CODE: - INDICATE THE TYPE OF WHEELCHAIR/SCOOTER USED: CODE: EXPR WHEEL 150 FEET: Not assessed/no information CODE: - INDICATE THE TYPE OF WHEELCHAIR/SCOOTER USED: CODE: EXPR BLADDER AND BOWEL: H350. BLADDER CONTINENCE (3-DAY ASSESSMENT PERIOD): Always continent (no documented incontinence) CODE: 0 H400. BOWEL CONTINENCE (3-DAY ASSESSMENT PERIOD): Always continent CODE: 0
[2019-02-13 05:32] VITALS: BMI 25.9
[2019-02-13] MEDS: FAMOTIDINE 20 MG TAB PO SCH ×2 (07:42→18:47)
[2019-02-13] MEDS: levETIRAcetam 500 MG TAB PO SCH ×2 (07:42→18:47)
[2019-02-13] MEDS: APIXABAN 2.5 MG TABLET PO SCH ×2 (07:42→18:48)
[2019-02-13] MEDS: dexAMETHasone 4 MG TAB PO SCH (07:42)
[2019-02-13] MEDS: PROMOD 30 ML DOSE PO SCH ×2 (07:43→18:48)
[2019-02-13] MEDS: TOPIRAMATE 25 MG TAB PO SCH ×2 (07:43→18:48)
[2019-02-13] MEDS: POTASSIUM CL SA 10 MEQ TAB PO SCH (07:43)
[2019-02-13] MEDS: DOCUSATE NA 100 MG CAP PO SCH ×2 (07:43→18:48)
[2019-02-13] MEDS: MELATONIN 3 MG TABLET PO PRN (18:48)
[2019-02-13] MEDS: TRAMADOL HCL 50 MG TAB PO PRN (18:48)
[2019-02-14] MEDS: dexAMETHasone 4 MG TAB PO SCH (07:56)
[2019-02-14] MEDS: APIXABAN 2.5 MG TABLET PO SCH ×2 (07:56→19:35)
[2019-02-14] MEDS: DOCUSATE NA 100 MG CAP PO SCH ×2 (07:56→19:35)
[2019-02-14] MEDS: TOPIRAMATE 25 MG TAB PO SCH ×2 (07:56→19:35)
[2019-02-14] MEDS: POTASSIUM CL SA 10 MEQ TAB PO SCH (07:56)
[2019-02-14] MEDS: FAMOTIDINE 20 MG TAB PO SCH ×2 (07:56→19:35)
[2019-02-14] MEDS: levETIRAcetam 500 MG TAB PO SCH ×2 (07:56→19:34)
[2019-02-14] MEDS: PROMOD 30 ML DOSE PO SCH ×2 (07:57→19:35)
[2019-02-14] MEDS: ACETAMINOPHEN 500 MG TAB PO PRN (15:44)
[2019-02-14] MEDS: TRAMADOL HCL 50 MG TAB PO PRN (19:35)
[2019-02-14] MEDS: MELATONIN 3 MG TABLET PO PRN (19:35)
[2019-02-15] MEDS: TRAMADOL HCL 50 MG TAB PO PRN (03:19)
[2019-02-15] MEDS: ACETAMINOPHEN 500 MG TAB PO PRN (06:42)
[2019-02-15] MEDS: PROMOD 30 ML DOSE PO SCH ×2 (08:00→21:18)
[2019-02-15] MEDS: levETIRAcetam 500 MG TAB PO SCH ×2 (08:31→21:18)
[2019-02-15] MEDS: FAMOTIDINE 20 MG TAB PO SCH ×2 (08:32→21:18)
[2019-02-15] MEDS: POTASSIUM CL SA 10 MEQ TAB PO SCH (08:32)
[2019-02-15] MEDS: APIXABAN 2.5 MG TABLET PO SCH ×2 (08:32→21:17)
[2019-02-15] MEDS: TOPIRAMATE 25 MG TAB PO SCH ×2 (08:32→21:17)
[2019-02-15] MEDS: dexAMETHasone 4 MG TAB PO SCH (08:33)
[2019-02-15] MEDS: DOCUSATE NA 100 MG CAP PO SCH ×2 (08:33→20:00)
--- NOTE | 2019-02-15 08:53 | FAST ---
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 Cooper Pompa M.D. 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 ROLL LEFT AND RIGHT: ROLL LEFT AND RIGHT - STEP 1: Does the patient complete the activity by him/herself with no assistance (physical, verbal/nonverbal cueing, setup/clean-up)? No. ROLL LEFT AND RIGHT - STEP 2: Does the patient need only setup/clean-up assistance from one helper? Yes. 1. [id number] ADMISSION PERFORMANCE: Setup or clean-up assistance CODE: 05 SIT TO LYING: SIT TO LYING - STEP 1: Does the patient complete the activity by him/herself with no assistance (physical, verbal/nonverbal cueing, setup/clean-up)? No. SIT TO LYING - STEP 2: Does the patient need only setup/clean-up assistance from one helper? Yes. 1. [id number] ADMISSION PERFORMANCE: Setup or clean-up assistance CODE: 05 LYING TO SITTING: LYING TO SITTING ON SIDE OF BED - STEP 1: Does the patient complete the activity by him/herself with no assistance (physical, verbal/nonverbal cueing, setup/clean-up)? No. LYING TO SITTING ON SIDE OF BED - STEP 2: Does the patient need only setup/clean-up assistance from one helper? Yes. 1. [id number] ADMISSION PERFORMANCE: Setup or clean-up assistance CODE: 05 SIT TO STAND: SIT TO STAND - STEP 1: Does the patient complete the activity by him/herself with no assistance (physical, verbal/nonverbal cueing, setup/clean-up)? No. SIT TO STAND - STEP 2: Does the patient need only setup/clean-up assistance from one helper? Yes. 1. [id number] ADMISSION PERFORMANCE: Setup or clean-up assistance CODE: 05 TRANSFERS: BED, CHAIR: CHAIR/[id number] TRANSFER - STEP 1: Does the patient complete the activity by him/herself with no assistance (physical, verbal/nonverbal cueing, setup/clean-up)? No. CHAIR/[id number] TRANSFER - STEP 2: Does the patient need only setup/clean-up assistance from one helper? Yes. 1. [id number] ADMISSION PERFORMANCE: Setup or clean-up assistance CODE: 05 TRANSFER TOILET: TOILET TRANSFER - STEP 1: Does the patient complete the activity by him/herself with no assistance (physical, verbal/nonverbal cueing, setup/clean-up)? No. TOILET TRANSFER - STEP 2: Does the patient need only setup/clean-up assistance from one helper? Yes. 1. [id number] ADMISSION PERFORMANCE: Setup or clean-up assistance CODE: 05 TRANSFERS: CAR: Not attempted due to environmental limitations (e.g., lack of equipment, weather constraints) CODE: 10 WALK 10 FEET: WALK 10 FEET - STEP 1: Does the patient complete the activity by him/herself with no assistance (physical, verbal/nonverbal cueing, setup/clean-up)? No. WALK 10 FEET - STEP 2: Does the patient need only setup/clean-up assistance from one helper? Yes. 1. [id number] ADMISSION PERFORMANCE: Setup or clean-up assistance CODE: 05 WALK 50 FEET: WALK 50 FEET - STEP 1: Does the patient complete the activity by him/herself with no assistance (physical, verbal/nonverbal cueing, setup/clean-up)? No. WALK 50 FEET - STEP 2: Does the patient need only setup/clean-up assistance from one helper? Yes. 1. [id number] ADMISSION PERFORMANCE: Setup or clean-up assistance CODE: 05 WALK 150 FEET: WALK 150 FEET - STEP 1: Does the patient complete the activity by him/herself with no assistance (physical, verbal/nonverbal cueing, setup/clean-up)? No. WALK 150 FEET - STEP 2: Does the patient need only setup/clean-up assistance from one helper? Yes. 1. [id number] ADMISSION PERFORMANCE: Setup or clean-up assistance CODE: 05 WALK 10 FEET UNEVEN: Not attempted due to medical condition or safety concerns CODE: 88 1 STEP (CURB): 1 STEP CURB - STEP 1: Does the patient complete the activity by him/herself with no assistance (physical, verbal/nonverbal cueing, setup/clean-up)? No. 1 STEP CURB - STEP 2: Does the patient need only setup/clean-up assistance from one helper? Yes. 1. [id number] ADMISSION PERFORMANCE: Setup or clean-up assistance CODE: 05 4 STEPS: 4 STEPS - STEP 1: Does the patient complete the activity by him/herself with no assistance (physical, verbal/nonverbal cueing, setup/clean-up)? No. 4 STEPS - STEP 2: Does the patient need only setup/clean-up assistance from one helper? Yes. 1. [id number] ADMISSION PERFORMANCE: Setup or clean-up assistance CODE: 05 12 STEPS: 12 STEPS - STEP 1: Does the patient complete the activity by him/herself with no assistance (physical, verbal/nonverbal cueing, setup/clean-up)? No. 12 STEPS - STEP 2: Does the patient need only setup/clean-up assistance from one helper? Yes. 1. [id number] ADMISSION PERFORMANCE: Setup or clean-up assistance CODE: 05 PICKING UP OBJECT: Not attempted due to medical condition or safety concerns CODE: 88 DOES THE PATIENT USE A WHEELCHAIR/SCOOTER? Q1. DOES THE PATIENT USE A WHEELCHAIR/SCOOTER?: Yes CODE: 1 WHEEL 50 FEET WITH TWO TURNS: WHEEL 50 FEET WITH TWO TURNS - STEP 1: Does the patient complete the activity by him/herself with no assistance (physical, verbal/nonverbal cueing, setup/clean-up)? No. WHEEL 50 FEET WITH TWO TURNS - STEP 2: Does the patient need only setup/clean-up assistance from one helper? Yes. 1. [id number] ADMISSION PERFORMANCE: Setup or clean-up assistance CODE: 05 INDICATE THE TYPE OF WHEELCHAIR/SCOOTER USED: RR1. INDICATE THE TYPE OF WHEELCHAIR/SCOOTER USED.: Manual CODE: 1 WHEEL 150 FEET: WHEEL 150 FEET - STEP 1: Does the patient complete the activity by him/herself with no assistance (physical, verbal/nonverbal cueing, setup/clean-up)? No. WHEEL 150 FEET - STEP 2: Does the patient need only setup/clean-up assistance from one helper? Yes. 1. [id number] ADMISSION PERFORMANCE: Setup or clean-up assistance CODE: 05 INDICATE THE TYPE OF WHEELCHAIR/SCOOTER USED: SS1. INDICATE THE TYPE OF WHEELCHAIR/SCOOTER USED.: Manual CODE: 1 BLADDER AND BOWEL: CODE: EXPR CODE: EXPR SIGNATURE PANEL: The following modified sections: 1. [id number] Admission Performance, 1. [id number] Admission Performance, 1. [id number] Admission Performance, 1. [id number] Admission Performance, 1. [id number] Admission Performance, 1. [id number] Admission Performance, 1. [id number] Admission Performance, 1. [id number] Admission Performance , 1. [id number] Admission Performance, 1. [id number] Admission Performance, 1. [id number] Admission Performanc e, 1. [id number] Admission Performance, Q1. Does the patient use a wheelchair/scooter?, 1. [id number] Admis brenna Performance, RR1. Indicate the type of wheelchair/scooter used., 1. [id number] Admission Performanc e, Code, SS1. Indicate the type of wheelchair/scooter used. were [electronically] signed by Navjot montes PTA on FriFeb 15 2019 08:51:46 GMT-0600 (Central Standard Time)
--- NOTE | 2019-02-15 12:50 | FAST ---
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 Cooper Pompa M.D. 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 EATING: Not assessed/no information CODE: - ORAL HYGIENE: ORAL HYGIENE - STEP 1: Does the patient complete the activity by him/herself with no assistance (physical, verbal/nonverbal cueing, setup/clean-up)? Yes. 1. [id number] ADMISSION PERFORMANCE: Independent CODE: 06 TOILETING HYGIENE: Not assessed/no information CODE: - BATHING: SHOWER/BATHE SELF - STEP 1: Does the patient complete the activity by him/herself with no assistance (physical, verbal/nonverbal cueing, setup/clean-up)? No. SHOWER/BATHE SELF - STEP 2: Does the patient need only setup/clean-up assistance from one helper? Yes. 1. [id number] ADMISSION PERFORMANCE: Setup or clean-up assistance CODE: 05 DRESSING - UPPER BODY: DRESSING - UPPER BODY - STEP 1: Does the patient complete the activity by him/herself with no assistance (physical, verbal/nonverbal cueing, setup/clean-up)? No. DRESSING - UPPER BODY - STEP 2: Does the patient need only setup/clean-up assistance from one helper? Yes. 1. [id number] ADMISSION PERFORMANCE: Setup or clean-up assistance CODE: 05 DRESSING - LOWER BODY: DRESSING - LOWER BODY - STEP 1: Does the patient complete the activity by him/herself with no assistance (physical, verbal/nonverbal cueing, setup/clean-up)? No. DRESSING - LOWER BODY - STEP 2: Does the patient need only setup/clean-up assistance from one helper? No. DRESSING - LOWER BODY - STEP 3: Does the patient need only verbal/nonverbal cueing or touching/steadying/contact guard assistance fro m one helper? Yes. 1. [id number] ADMISSION PERFORMANCE: Supervision or touching assistance CODE: 04 PUTTING ON/TAKING OFF FOOTWEAR: FOOTWEAR - STEP 1: Does the patient complete the activity by him/herself with no assistance (physical, verbal/nonverbal cueing, setup/clean-up)? No. FOOTWEAR - STEP 2: Does the patient need only setup/clean-up assistance from one helper? No. FOOTWEAR - STEP 3: Does the patient need only verbal/nonverbal cueing or touching/steadying/contact guard assistance fro m one helper? Yes. 1. [id number] ADMISSION PERFORMANCE: Supervision or touching assistance CODE: 04 DOES THE PATIENT USE A WHEELCHAIR/SCOOTER? CODE: EXPR INDICATE THE TYPE OF WHEELCHAIR/SCOOTER USED: CODE: EXPR INDICATE THE TYPE OF WHEELCHAIR/SCOOTER USED: CODE: EXPR BLADDER AND BOWEL: CODE: EXPR CODE: EXPR SIGNATURE PANEL: The following modified sections: 1. [id number] Admission Performance, 1. AE1409h Admission Performance, 1. [id number] Admission Performance, 1. IN9683z Admission Performance, 1. [id number] Admission Performance were [electronically] signed by MARIAN Mcbride on FriFeb 15 2019 12:50:02 GMT-0600 (Central Standard Time)
--- NOTE | 2019-02-15 17:47 | R.PN ---
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 Pt denied any Shortness of Breath. She had hallucinations, seeing roaches crawling on the [place]. This has continued since prior to her t umor resection. WBC was elevated to 16.8 with 91% neutrophils. Will repeat in the AM. Modified barium studies showed laryngeal penetration, cleared with repeat swallowing. Ambulated 1000' with standby assistance using a rolling walker and standby assistance. VITAL SIGNS Temperature: 97.8 F SBP/DBP: 112/77 Pulse: 88 Resp: 16 MEDICATION ALLERGIES: No Known Drug Allergies (NKDA) ENVIRONMENTAL ALLERGIES: - Substance Allergies None Known - Other Allergies None Known NURSING: - Shower allowing shower - Bladder care per protocol - Skin care per protocol PRECAUTIONS: - Aspiration Precaution 1 to 1 supervision with all po intake All meals in the dysphagia dining room No straws Seated at 90 degrees while eating and 30 minutes after meals - Fall Precaution Bed alarm TABS alarm Wheel chair alarm ACTIVITIES OOB only with supervision THERAPIES: - Dietary and Nutrition Adequate Nutrition. Nutritional Education. Nutritional Supplements. - Speech Therapy Cognitive Training. Dysphagia Therapy. Expressive Language Skills. Receptive Language Skills. PHYSICAL EXAM - Gen Alert and awake Lying in bed No apparent distress Oriented to: person, time, and place - Skin No skin breakdown. Normacephalic - Eyes No abnormalities - ENMT No abnormalities - Neck No abnormalities - CVS RRR - Chest No abnormalities - Resp Clear to auscultation - Abd Soft - GI Non distended Deferred - No abnormalities - Ext No significant edema - MSK 4/5 weakness in both lower extremities. - Neuro No focal deficits - Psych No abnormalities ASSESSMENT: Pt. 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 was independent/mod-I in Locomotion, Endu felecia, Self-Care, Balance, Transfers Control, Safety Awareness, Social Cognition, Communication, and Sphincter Control; and she had good Sphincter Control.Currently, she has deficits of Locomotion, Self -Care, Endurance, Transfers Control, Balance, Safety Awareness, Social Cognition, Ambulation, Communi cation, Safety Awareness and Self-Care, and Sphincter Control.Pt. is now referred to [facility] for acute in-patient rehabilitation in order to maximize patient's functional indep endence in activities of daily living, strength, ROM, and mobility.- Rehab Goal Patient has realistic goal of being discharged at assistance level 6-Lilian to reside at Home with Fam nancy/Relatives. MDM/PLAN: - Physical Therapy Gait dysfunction - to improve, our physical therapists will perform initial evaluation of pt's statu s upon admission and devise an individualized program for Gait Training, and Wheel Chair mobility Inability to transfer - to improve, our physical therapists will perform initial evaluation of pt's status upon admission and devise an individualized program for Bed mobility Need for home safety evaluation - to improve, our physical therapists will perform initial evaluatio n of pt's status upon admission and devise an individualized program for Home Evaluation Need in caregiver upon discharge - to improve, our physical therapists will perform initial evaluati on of pt's status upon admission and devise an individualized program for Caregiver Training New precaution - to improve, our physical therapists will perform initial evaluation of pt's status upon admission and devise an individualized program for Patient precaution education Edema - to improve, our physical therapists will perform initial evaluation of pt's status upon admi ssion and devise an individualized program for Elevation Training, and Lymphedema Therapy Poor balance - to improve, our physical therapists will perform initial evaluation of pt's status up on admission and devise an individualized program for Balance Training Poor endurance - to improve, our physical therapists will perform initial evaluation of pt's status upon admission and devise an individualized program for Endurance Training Weakness - to improve, our physical therapists will perform initial evaluation of pt's status upon a dmission and devise an individualized program for Aquatic Therapy, Neuromuscular Reeducation, and Str engthening Achieving independence - to improve, our physical therapists will perform initial evaluation of pt's status upon admission and devise an individualized program for Community Reintegration Activities - Occupational Therapy ADL deficits - to improve, our occupation therapists will perform initial evaluation of pt's status upon admission and devise an individualized program for Bathing, Bed mobility, Community Reintegratio n, Cooking, Dressing, Eating, Fine Motor Skills, Grooming, Homemaking, Kitchen Mobility, Laundry, Pat ient Education, Safety Awareness, Splinting - Positioning, Transfers(Toilet, Tub, Shower), and Wheel Chair Management Cognitive deficits - to improve, our occupation therapists will perform initial evaluation of pt's s tatus upon admission and devise an individualized program for Cognition - orientation Need for nanny caregiver - to improve, our occupation therapists will perform initial evaluation of pt's status upon admission and devise an individualized program for Caregiver Training Weakness - to improve, our occupation therapists will perform initial evaluation of pt's status upon admission and devise an individualized program for Aquatic Therapy, Balance, Endurance, UE ROM, and UE strengthening - Other See attached MAR (Medication Administration Record) - Diet Type Continue SOFT - Diet - Solid Texture Continue GI SOFT - Diet - Liquid Texture Continue [place]-Thickened - Tube Feed Continue N/A - Bladder care per protocol - Aspiration Precaution 1 to 1 supervision with all po intake All meals in the dysphagia dining room No straws Seated at 90 degrees while eating and 30 minutes after meals - Fall Precaution Bed alarm TABS alarm Wheel chair alarm - Skin care per protocol - Shower allowing shower FUNCTIONAL STATUS: UPDATED AT WEEKLY TEAM CONFERENCE - Bladder Same accident frequency: 7-Ind - No accidents in the past 7 days - Bowel Same accident frequency: 7-Ind - No accidents in the past 7 days - Walking Same score based on distance walked: 1(<=50ft) - Wheelchair Same score based on distance traveled: 1(<=50ft) FUNCTIONAL STATUS: - Self-Care A. Eating Ind B. Grooming Lilian C. Bathing sup D. Dressing - Upper Lilian E. Dressing - Lower sup F. Toileting modA - Sphincter Control G. Bladder control Lilian H. Bowel control Lilian - Transfers Control I. Bed/Chair/Wheelchair sup J. Toilet Lilian K. Tub/Shower sup - Locomotion L. Walk/Wheelchair (B) sup M. Stairs [place] - Communication N. Comprehension (B) sup O. Expression (B) sup - Social Cognition P. Social Interaction Ind Q. Problem Solving Lilian R. Memory Lilian - Endurance Good - Balance Good - Safety Awareness Good QI SCORES: - Self-Care A. Eating 04-Supervision or touching assistance B. Oral hygiene 03-Partial/moderate assistance C. Toileting hygiene 02-Substantial/maximal assistance E. Shower/bathe self 88-Not attempted due to medical condition or safety concerns F. Upper body dressing 02-Substantial/maximal assistance G. Lower body dressing 02-Substantial/maximal assistance H. Putting on/taking off footwear 01-Dependent - Mobility A. Roll left and right 03-Partial/moderate assistance B. Sit to lying 02-Substantial/maximal assistance C. Lying to sitting on side of bed 03-Partial/moderate assistance D. Sit to stand 02-Substantial/maximal assistance E. Chair/[id number]-[id number] transfer 02-Substantial/maximal assistance F. Toilet transfer 02-Substantial/maximal assistance G. Car transfer 88-Not attempted due to medical condition or safety concerns I. Walk 10 feet 88-Not attempted due to medical condition or safety concerns J. Walk 50 feet with two turns 88-Not attempted due to medical condition or safety concerns K. Walk 150 feet 88-Not attempted due to medical condition or safety concerns L. Walking 10 feet on uneven surfaces 88-Not attempted due to medical condition or safety concerns M. 1 step (curb) 88-Not attempted due to medical condition or safety concerns N. 4 steps 88-Not attempted due to medical condition or safety concerns O. 12 steps 88-Not attempted due to medical condition or safety concerns P. Picking up object 88-Not attempted due to medical condition or safety concerns R. Wheel 50 feet with two turns 88-Not attempted due to medical condition or safety concerns S. Wheel 150 feet 88-Not attempted due to medical condition or safety concerns - Bladder and Bowel Bladder continence 9-Not applicable Bowel continence 3-Always incontinent - Endurance Poor - Balance Poor - Safety Awareness Poor CURRENT FUNC. 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
[2019-02-15] MEDS: DIPHENHYDRAMINE 25 MG TAB/CAP PO PRN (21:17)
[2019-02-16] MEDS: DOCUSATE NA 100 MG CAP PO SCH ×2 (08:00→19:12)
[2019-02-16] MEDS: POTASSIUM CL SA 10 MEQ TAB PO SCH (08:20)
[2019-02-16] MEDS: TOPIRAMATE 25 MG TAB PO SCH ×2 (08:20→19:13)
[2019-02-16] MEDS: FAMOTIDINE 20 MG TAB PO SCH ×2 (08:20→19:13)
[2019-02-16] MEDS: APIXABAN 2.5 MG TABLET PO SCH ×2 (08:21→19:13)
[2019-02-16] MEDS: dexAMETHasone 4 MG TAB PO SCH (08:21)
[2019-02-16] MEDS: levETIRAcetam 500 MG TAB PO SCH ×2 (08:21→19:13)
[2019-02-16] MEDS: PROMOD 30 ML DOSE PO SCH ×2 (08:22→19:16)
[2019-02-16] MEDS: ACETAMINOPHEN 500 MG TAB PO PRN (19:12)
[2019-02-16] MEDS: MELATONIN 3 MG TABLET PO PRN (19:13)
[2019-02-17] MEDS: ACETAMINOPHEN 500 MG TAB PO PRN ×2 (03:22→08:06)
[2019-02-17] MEDS: DOCUSATE NA 100 MG CAP PO SCH ×2 (08:00→19:35)
[2019-02-17] MEDS: PROMOD 30 ML DOSE PO SCH ×2 (08:00→19:35)
[2019-02-17] MEDS: TOPIRAMATE 25 MG TAB PO SCH ×2 (08:06→19:34)
[2019-02-17] MEDS: APIXABAN 2.5 MG TABLET PO SCH ×2 (08:07→19:35)
[2019-02-17] MEDS: levETIRAcetam 500 MG TAB PO SCH ×2 (08:07→19:35)
[2019-02-17] MEDS: FAMOTIDINE 20 MG TAB PO SCH ×2 (08:07→19:35)
[2019-02-17] MEDS: POTASSIUM CL SA 10 MEQ TAB PO SCH (08:07)
[2019-02-17] MEDS: TRAMADOL HCL 50 MG TAB PO PRN ×3 (12:25→23:09)
--- NOTE | 2019-02-17 16:28 | FAST ---
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 Cooper Pompa M.D. 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 EATING: Not assessed/no information CODE: - ORAL HYGIENE: ORAL HYGIENE - STEP 1: Does the patient complete the activity by him/herself with no assistance (physical, verbal/nonverbal cueing, setup/clean-up)? Yes. 1. [id number] ADMISSION PERFORMANCE: Independent CODE: 06 TOILETING HYGIENE: Not assessed/no information CODE: - BATHING: SHOWER/BATHE SELF - STEP 1: Does the patient complete the activity by him/herself with no assistance (physical, verbal/nonverbal cueing, setup/clean-up)? Yes. 1. [id number] ADMISSION PERFORMANCE: Independent CODE: 06 DRESSING - UPPER BODY: DRESSING - UPPER BODY - STEP 1: Does the patient complete the activity by him/herself with no assistance (physical, verbal/nonverbal cueing, setup/clean-up)? Yes. 1. ADMISSION PERFORMANCE: Independent CODE: 06 DRESSING - LOWER BODY: DRESSING - LOWER BODY - STEP 1: Does the patient complete the activity by him/herself with no assistance (physical, verbal/nonverbal cueing, setup/clean-up)? Yes. 1. [id number] ADMISSION PERFORMANCE: Independent CODE: 06 PUTTING ON/TAKING OFF FOOTWEAR: FOOTWEAR - STEP 1: Does the patient complete the activity by him/herself with no assistance (physical, verbal/nonverbal cueing, setup/clean-up)? Yes. 1. [id number] ADMISSION PERFORMANCE: Independent CODE: 06 DOES THE PATIENT USE A WHEELCHAIR/SCOOTER? CODE: EXPR INDICATE THE TYPE OF WHEELCHAIR/SCOOTER USED: CODE: EXPR INDICATE THE TYPE OF WHEELCHAIR/SCOOTER USED: CODE: EXPR BLADDER AND BOWEL: CODE: EXPR CODE: EXPR SIGNATURE PANEL: The following modified sections: 1. [id number] Admission Performance, 1. [id number] Admission Performance, 1. [id number] Admission Performance, 1. [id number] Admission Performance, 1. [id number] Admission Performance were [electronically] signed by MARIAN Mcbride on FriFeb 17 2019 16:27:08 GMT-0600 (Central Standard Time)
--- NOTE | 2019-02-17 17:09 | R.PN ---
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 Pt denied any Shortness of Breath. She had hallucinations, seeing roaches crawling on the olivera. This has continued since prior to her t umor resection. WBC was elevated to 16.8 with 91% neutrophils. Will repeat in the AM. Modified barium studies showed laryngeal penetration, cleared with repeat swallowing. Ambulated 250' with standby assistance using a rolling walker and standby assistance. Up and down 20 steps with bilateral handrails. VITAL SIGNS Temperature: 97.6 F SBP/DBP: 125/87 Pulse: 91 Resp: 16 MEDICATION ALLERGIES: No Known Drug Allergies (NKDA) ENVIRONMENTAL ALLERGIES: - Substance Allergies None Known - Other Allergies None Known NURSING: - Shower allowing shower - Bladder care per protocol - Skin care per protocol PRECAUTIONS: - Aspiration Precaution 1 to 1 supervision with all po intake All meals in the dysphagia dining room No straws Seated at 90 degrees while eating and 30 minutes after meals - Fall Precaution Bed alarm TABS alarm Wheel chair alarm ACTIVITIES OOB only with supervision THERAPIES: - Dietary and Nutrition Adequate Nutrition. Nutritional Education. Nutritional Supplements. - Speech Therapy Cognitive Training. Dysphagia Therapy. Expressive Language Skills. Receptive Language Skills. PHYSICAL EXAM - Gen Alert and awake Lying in bed No apparent distress Oriented to: person, time, and place - Skin No skin breakdown. Normacephalic - Eyes No abnormalities - ENMT No abnormalities - Neck No abnormalities - CVS RRR - Chest No abnormalities - Resp Clear to auscultation - Abd Soft - GI Non distended Deferred - No abnormalities - Ext No significant edema - MSK 4/5 weakness in both lower extremities. - Neuro No focal deficits - Psych No abnormalities ASSESSMENT: Pt. 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 was independent/mod-I in Locomotion, Endu felecia, Self-Care, Balance, Transfers Control, Safety Awareness, Social Cognition, Communication, and Sphincter Control; and she had good Sphincter Control.Currently, she has deficits of Locomotion, Self -Care, Endurance, Transfers Control, Balance, Safety Awareness, Social Cognition, Ambulation, Communi cation, Safety Awareness and Self-Care, and Sphincter Control.Pt. is now referred to [facility] for acute in-patient rehabilitation in order to maximize patient's functional indep endence in activities of daily living, strength, ROM, and mobility.- Rehab Goal Patient has realistic goal of being discharged at assistance level 6-Lilian to reside at Home with Fam nancy/Relatives. MDM/PLAN: - Physical Therapy Gait dysfunction - to improve, our physical therapists will perform initial evaluation of pt's statu s upon admission and devise an individualized program for Gait Training, and Wheel Chair mobility Inability to transfer - to improve, our physical therapists will perform initial evaluation of pt's status upon admission and devise an individualized program for Bed mobility Need for home safety evaluation - to improve, our physical therapists will perform initial evaluatio n of pt's status upon admission and devise an individualized program for Home Evaluation Need in caregiver upon discharge - to improve, our physical therapists will perform initial evaluati on of pt's status upon admission and devise an individualized program for Caregiver Training New precaution - to improve, our physical therapists will perform initial evaluation of pt's status upon admission and devise an individualized program for Patient precaution education Edema - to improve, our physical therapists will perform initial evaluation of pt's status upon admi ssion and devise an individualized program for Elevation Training, and Lymphedema Therapy Poor balance - to improve, our physical therapists will perform initial evaluation of pt's status up on admission and devise an individualized program for Balance Training Poor endurance - to improve, our physical therapists will perform initial evaluation of pt's status upon admission and devise an individualized program for Endurance Training Weakness - to improve, our physical therapists will perform initial evaluation of pt's status upon a dmission and devise an individualized program for Aquatic Therapy, Neuromuscular Reeducation, and Str engthening Achieving independence - to improve, our physical therapists will perform initial evaluation of pt's status upon admission and devise an individualized program for Community Reintegration Activities - Occupational Therapy ADL deficits - to improve, our occupation therapists will perform initial evaluation of pt's status upon admission and devise an individualized program for Bathing, Bed mobility, Community Reintegratio n, Cooking, Dressing, Eating, Fine Motor Skills, Grooming, Homemaking, Kitchen Mobility, Laundry, Pat ient Education, Safety Awareness, Splinting - Positioning, Transfers(Toilet, Tub, Shower), and Wheel Chair Management Cognitive deficits - to improve, our occupation therapists will perform initial evaluation of pt's s tatus upon admission and devise an individualized program for Cognition - orientation Need for human services care specialist - to improve, our occupation therapists will perform initial evaluation of pt's status upon admission and devise an individualized program for Caregiver Training Weakness - to improve, our occupation therapists will perform initial evaluation of pt's status upon admission and devise an individualized program for Aquatic Therapy, Balance, Endurance, UE ROM, and UE strengthening - Other See attached MAR (Medication Administration Record) - Diet Type Continue SOFT - Diet - Solid Texture Continue GI SOFT - Diet - Liquid Texture Continue [place]-Thickened - Tube Feed Continue N/A - Bladder care per protocol - Aspiration Precaution 1 to 1 supervision with all po intake All meals in the dysphagia dining room No straws Seated at 90 degrees while eating and 30 minutes after meals - Fall Precaution Bed alarm TABS alarm Wheel chair alarm - Skin care per protocol - Shower allowing shower FUNCTIONAL STATUS: UPDATED AT WEEKLY TEAM CONFERENCE - Bladder Same accident frequency: 7-Ind - No accidents in the past 7 days - Bowel Same accident frequency: 7-Ind - No accidents in the past 7 days - Walking Same score based on distance walked: 1(<=50ft) - Wheelchair Same score based on distance traveled: 1(<=50ft) FUNCTIONAL STATUS: - Self-Care A. Eating Ind B. Grooming Lilian C. Bathing sup D. Dressing - Upper Lilian E. Dressing - Lower sup F. Toileting modA - Sphincter Control G. Bladder control Lilian H. Bowel control Lilian - Transfers Control I. Bed/Chair/Wheelchair sup J. Toilet Lilian K. Tub/Shower sup - Locomotion L. Walk/Wheelchair (B) sup M. Stairs [place] - Communication N. Comprehension (B) sup O. Expression (B) sup - Social Cognition P. Social Interaction Ind Q. Problem Solving Lilian R. Memory Lilian - Endurance Good - Balance Good - Safety Awareness Good QI SCORES: - Self-Care A. Eating 04-Supervision or touching assistance B. Oral hygiene 03-Partial/moderate assistance C. Toileting hygiene 02-Substantial/maximal assistance E. Shower/bathe self 88-Not attempted due to medical condition or safety concerns F. Upper body dressing 02-Substantial/maximal assistance G. Lower body dressing 02-Substantial/maximal assistance H. Putting on/taking off footwear 01-Dependent - Mobility A. Roll left and right 03-Partial/moderate assistance B. Sit to lying 02-Substantial/maximal assistance C. Lying to sitting on side of bed 03-Partial/moderate assistance D. Sit to stand 02-Substantial/maximal assistance E. Chair/[id number] transfer 02-Substantial/maximal assistance F. Toilet transfer 02-Substantial/maximal assistance G. Car transfer 88-Not attempted due to medical condition or safety concerns I. Walk 10 feet 88-Not attempted due to medical condition or safety concerns J. Walk 50 feet with two turns 88-Not attempted due to medical condition or safety concerns K. Walk 150 feet 88-Not attempted due to medical condition or safety concerns L. Walking 10 feet on uneven surfaces 88-Not attempted due to medical condition or safety concerns M. 1 step (curb) 88-Not attempted due to medical condition or safety concerns N. 4 steps 88-Not attempted due to medical condition or safety concerns O. 12 steps 88-Not attempted due to medical condition or safety concerns P. Picking up object 88-Not attempted due to medical condition or safety concerns R. Wheel 50 feet with two turns 88-Not attempted due to medical condition or safety concerns S. Wheel 150 feet 88-Not attempted due to medical condition or safety concerns - Bladder and Bowel Bladder continence 9-Not applicable Bowel continence 3-Always incontinent - Endurance Poor - Balance Poor - Safety Awareness Poor CURRENT FUNC. 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
[2019-02-17] MEDS: MELATONIN 3 MG TABLET PO PRN (19:38)
--- NOTE | 2019-02-17 22:11 | R.PN ---
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 Pt denied any Shortness of Breath. She had hallucinations, seeing roaches crawling on the olivera. This has continued since prior to her t umor resection. Modified barium studies showed laryngeal penetration, cleared with repeat swallowing. Ambulated 250' with standby assistance using a rolling walker and standby assistance. Up and down 20 steps with bilateral handrails. VITAL SIGNS Temperature: 97.4 F SBP/DBP: 122/82 Pulse: 87 Resp: 16 MEDICATION ALLERGIES: No Known Drug Allergies (NKDA) ENVIRONMENTAL ALLERGIES: - Substance Allergies None Known - Other Allergies None Known NURSING: - Shower allowing shower - Bladder care per protocol - Skin care per protocol PRECAUTIONS: - Aspiration Precaution 1 to 1 supervision with all po intake All meals in the dysphagia dining room No straws Seated at 90 degrees while eating and 30 minutes after meals - Fall Precaution Bed alarm TABS alarm Wheel chair alarm ACTIVITIES OOB only with supervision THERAPIES: - Dietary and Nutrition Adequate Nutrition. Nutritional Education. Nutritional Supplements. - Speech Therapy Cognitive Training. Dysphagia Therapy. Expressive Language Skills. Receptive Language Skills. PHYSICAL EXAM - Gen Alert and awake Lying in bed No apparent distress Oriented to: person, time, and place - Skin No skin breakdown. Normacephalic - Eyes No abnormalities - ENMT No abnormalities - Neck No abnormalities - CVS RRR - Chest No abnormalities - Resp Clear to auscultation - Abd Soft - GI Non distended Deferred - No abnormalities - Ext No significant edema - MSK 4/5 weakness in both lower extremities. - Neuro No focal deficits - Psych No abnormalities ASSESSMENT: Pt. is a 68 yo Right-handed white female.On 01/25/[address] 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 was independent/mod-I in Locomotion, Endu felecia, Self-Care, Balance, Transfers Control, Safety Awareness, Social Cognition, Communication, and Sphincter Control; and she had good Sphincter Control.Currently, she has deficits of Locomotion, Self -Care, Endurance, Transfers Control, Balance, Safety Awareness, Social Cognition, Ambulation, Communi cation, Safety Awareness and Self-Care, and Sphincter Control.Pt. is now referred to [facility] for acute in-patient rehabilitation in order to maximize patient's functional indep endence in activities of daily living, strength, ROM, and mobility.- Rehab Goal Patient has realistic goal of being discharged at assistance level 6-Lilian to reside at Home with Fam nancy/Relatives. MDM/PLAN: - Physical Therapy Gait dysfunction - to improve, our physical therapists will perform initial evaluation of pt's statu s upon admission and devise an individualized program for Gait Training, and Wheel Chair mobility Inability to transfer - to improve, our physical therapists will perform initial evaluation of pt's status upon admission and devise an individualized program for Bed mobility Need for home safety evaluation - to improve, our physical therapists will perform initial evaluatio n of pt's status upon admission and devise an individualized program for Home Evaluation Need in caregiver upon discharge - to improve, our physical therapists will perform initial evaluati on of pt's status upon admission and devise an individualized program for Caregiver Training New precaution - to improve, our physical therapists will perform initial evaluation of pt's status upon admission and devise an individualized program for Patient precaution education Edema - to improve, our physical therapists will perform initial evaluation of pt's status upon admi ssion and devise an individualized program for Elevation Training, and Lymphedema Therapy Poor balance - to improve, our physical therapists will perform initial evaluation of pt's status up on admission and devise an individualized program for Balance Training Poor endurance - to improve, our physical therapists will perform initial evaluation of pt's status upon admission and devise an individualized program for Endurance Training Weakness - to improve, our physical therapists will perform initial evaluation of pt's status upon a dmission and devise an individualized program for Aquatic Therapy, Neuromuscular Reeducation, and Str engthening Achieving independence - to improve, our physical therapists will perform initial evaluation of pt's status upon admission and devise an individualized program for Community Reintegration Activities - Occupational Therapy ADL deficits - to improve, our occupation therapists will perform initial evaluation of pt's status upon admission and devise an individualized program for Bathing, Bed mobility, Community Reintegratio n, Cooking, Dressing, Eating, Fine Motor Skills, Grooming, Homemaking, Kitchen Mobility, Laundry, Pat ient Education, Safety Awareness, Splinting - Positioning, Transfers(Toilet, Tub, Shower), and Wheel Chair Management Cognitive deficits - to improve, our occupation therapists will perform initial evaluation of pt's s tatus upon admission and devise an individualized program for Cognition - orientation Need for home care companion - to improve, our occupation therapists will perform initial evaluation of pt's status upon admission and devise an individualized program for Caregiver Training Weakness - to improve, our occupation therapists will perform initial evaluation of pt's status upon admission and devise an individualized program for Aquatic Therapy, Balance, Endurance, UE ROM, and UE strengthening - Other See attached MAR (Medication Administration Record) - Diet Type Continue SOFT - Diet - Solid Texture Continue GI SOFT - Diet - Liquid Texture Continue [place]-Thickened - Tube Feed Continue N/A - Bladder care per protocol - Aspiration Precaution 1 to 1 supervision with all po intake All meals in the dysphagia dining room No straws Seated at 90 degrees while eating and 30 minutes after meals - Fall Precaution Bed alarm TABS alarm Wheel chair alarm - Skin care per protocol - Shower allowing shower FUNCTIONAL STATUS: UPDATED AT WEEKLY TEAM CONFERENCE - Bladder Same accident frequency: 7-Ind - No accidents in the past 7 days - Bowel Same accident frequency: 7-Ind - No accidents in the past 7 days - Walking Same score based on distance walked: 1(<=50ft) - Wheelchair Same score based on distance traveled: 1(<=50ft) FUNCTIONAL STATUS: - Self-Care A. Eating Ind B. Grooming Lilian C. Bathing sup D. Dressing - Upper Lilian E. Dressing - Lower sup F. Toileting modA - Sphincter Control G. Bladder control Lilian H. Bowel control Lilian - Transfers Control I. Bed/Chair/Wheelchair sup J. Toilet Lilian K. Tub/Shower sup - Locomotion L. Walk/Wheelchair (B) sup M. Stairs [place] - Communication N. Comprehension (B) sup O. Expression (B) sup - Social Cognition P. Social Interaction Ind Q. Problem Solving Lilian R. Memory Lilian - Endurance Good - Balance Good - Safety Awareness Good QI SCORES: - Self-Care A. Eating 04-Supervision or touching assistance B. Oral hygiene 03-Partial/moderate assistance C. Toileting hygiene 02-Substantial/maximal assistance E. Shower/bathe self 88-Not attempted due to medical condition or safety concerns F. Upper body dressing 02-Substantial/maximal assistance G. Lower body dressing 02-Substantial/maximal assistance H. Putting on/taking off footwear 01-Dependent - Mobility A. Roll left and right 03-Partial/moderate assistance B. Sit to lying 02-Substantial/maximal assistance C. Lying to sitting on side of bed 03-Partial/moderate assistance D. Sit to stand 02-Substantial/maximal assistance E. Chair/[id number] transfer 02-Substantial/maximal assistance F. Toilet transfer 02-Substantial/maximal assistance G. Car transfer 88-Not attempted due to medical condition or safety concerns I. Walk 10 feet 88-Not attempted due to medical condition or safety concerns J. Walk 50 feet with two turns 88-Not attempted due to medical condition or safety concerns K. Walk 150 feet 88-Not attempted due to medical condition or safety concerns L. Walking 10 feet on uneven surfaces 88-Not attempted due to medical condition or safety concerns M. 1 step (curb) 88-Not attempted due to medical condition or safety concerns N. 4 steps 88-Not attempted due to medical condition or safety concerns O. 12 steps 88-Not attempted due to medical condition or safety concerns P. Picking up object 88-Not attempted due to medical condition or safety concerns R. Wheel 50 feet with two turns 88-Not attempted due to medical condition or safety concerns S. Wheel 150 feet 88-Not attempted due to medical condition or safety concerns - Bladder and Bowel Bladder continence 9-Not applicable Bowel continence 3-Always incontinent - Endurance Poor - Balance Poor - Safety Awareness Poor CURRENT FUNC. 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
[2019-02-17] MEDS: DIPHENHYDRAMINE 25 MG TAB/CAP PO PRN (23:09)
[2019-02-18 06:59] VITALS: BP 137/83; TEMP 98.1
[2019-02-18 07:00] LABS: Absolute Lymphocytes (CBC) 2.5 K/uL (0.7-4.9); Basophils % 1.1 % (0-1.3); Hematocrit 34.5 % (36.0-45.0); Lymphocytes % 28.7 % (15.3-44.8); MPV 7.5 fL (7.6-11.3)
[2019-02-18] MEDS: PROMOD 30 ML DOSE PO SCH (08:00)
[2019-02-18] MEDS: DOCUSATE NA 100 MG CAP PO SCH (08:00)
[2019-02-18] MEDS: APIXABAN 2.5 MG TABLET PO SCH (08:28)
[2019-02-18] MEDS: ACETAMINOPHEN 500 MG TAB PO PRN (08:28)
[2019-02-18] MEDS: POTASSIUM CL SA 10 MEQ TAB PO SCH (08:28)
[2019-02-18] MEDS: FAMOTIDINE 20 MG TAB PO SCH (08:28)
[2019-02-18] MEDS: levETIRAcetam 500 MG TAB PO SCH (08:28)
[2019-02-18] MEDS: TOPIRAMATE 25 MG TAB PO SCH (08:28)
[2019-02-18 08:51] LABS: Albumin 2.7 g/dL (3.4-5.0); Magnesium 2.3 mg/dL (1.8-2.4); Potassium 3.4 mmol/L (3.5-5.1)
[2019-02-18 08:52] LABS: Prealbumin 28.8 mg/dL (20-40)
--- NOTE | 2019-02-18 11:28 | FAST ---
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 Cooper Pompa M.D. 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 EATING: EATING - STEP 1: Does the patient complete the activity by him/herself with no assistance (physical, verbal/nonverbal cueing, setup/clean-up)? No. EATING - STEP 2: Does the patient need only setup/clean-up assistance from one helper? Yes. 1. [id number] ADMISSION PERFORMANCE: Setup or clean-up assistance CODE: 05 ORAL HYGIENE: ORAL HYGIENE - STEP 1: Does the patient complete the activity by him/herself with no assistance (physical, verbal/nonverbal cueing, setup/clean-up)? No. ORAL HYGIENE - STEP 2: Does the patient need only setup/clean-up assistance from one helper? Yes. 1. [id number] ADMISSION PERFORMANCE: Setup or clean-up assistance CODE: 05 TOILETING HYGIENE: TOILETING HYGIENE - STEP 1: Does the patient complete the activity by him/herself with no assistance (physical, verbal/nonverbal cueing, setup/clean-up)? No. TOILETING HYGIENE - STEP 2: Does the patient need only setup/clean-up assistance from one helper? No. TOILETING HYGIENE - STEP 3: Does the patient need only verbal/nonverbal cueing or touching/steadying/contact guard assistance fro m one helper? Yes. 1. [id number] ADMISSION PERFORMANCE: Supervision or touching assistance CODE: 04 BATHING: Not assessed/no information CODE: - DRESSING - UPPER BODY: Not assessed/no information CODE: - DRESSING - LOWER BODY: Not assessed/no information CODE: - PUTTING ON/TAKING OFF FOOTWEAR: Not assessed/no information CODE: - ROLL LEFT AND RIGHT: Not assessed/no information CODE: - SIT TO LYING: Not assessed/no information CODE: - LYING TO SITTING: Not assessed/no information CODE: - SIT TO STAND: SIT TO STAND - STEP 1: Does the patient complete the activity by him/herself with no assistance (physical, verbal/nonverbal cueing, setup/clean-up)? No. SIT TO STAND - STEP 2: Does the patient need only setup/clean-up assistance from one helper? No. SIT TO STAND - STEP 3: Does the patient need only verbal/nonverbal cueing or touching/steadying/contact guard assistance fro m one helper? Yes. 1. [id number] ADMISSION PERFORMANCE: Supervision or touching assistance CODE: 04 TRANSFERS: BED, CHAIR: CHAIR/[id number] TRANSFER - STEP 1: Does the patient complete the activity by him/herself with no assistance (physical, verbal/nonverbal cueing, setup/clean-up)? No. CHAIR/[id number] TRANSFER - STEP 2: Does the patient need only setup/clean-up assistance from one helper? No. CHAIR/[id number] TRANSFER - STEP 3: Does the patient need only verbal/nonverbal cueing or touching/steadying/contact guard assistance fro m one helper? No. CHAIR/[id number] TRANSFER - STEP 4: Does the patient need physical assistance - for example lifting or trunk support from one helper - wi th the helper providing less than half of the effort? Yes. 1. [id number] ADMISSION PERFORMANCE: Partial/moderate assistance CODE: 03 TRANSFER TOILET: TOILET TRANSFER - STEP 1: Does the patient complete the activity by him/herself with no assistance (physical, verbal/nonverbal cueing, setup/clean-up)? No. TOILET TRANSFER - STEP 2: Does the patient need only setup/clean-up assistance from one helper? No. TOILET TRANSFER - STEP 3: Does the patient need only verbal/nonverbal cueing or touching/steadying/contact guard assistance fro m one helper? Yes. 1. [id number] ADMISSION PERFORMANCE: Supervision or touching assistance CODE: 04 TRANSFERS: CAR: Not assessed/no information CODE: - WALK 10 FEET: Not assessed/no information CODE: - 1 STEP (CURB): Not assessed/no information CODE: - DOES THE PATIENT USE A WHEELCHAIR/SCOOTER? CODE: EXPR WHEEL 50 FEET WITH TWO TURNS: Not assessed/no information CODE: - INDICATE THE TYPE OF WHEELCHAIR/SCOOTER USED: CODE: EXPR WHEEL 150 FEET: Not assessed/no information CODE: - INDICATE THE TYPE OF WHEELCHAIR/SCOOTER USED: CODE: EXPR BLADDER AND BOWEL: H350. BLADDER CONTINENCE (3-DAY ASSESSMENT PERIOD): Always continent (no documented incontinence) CODE: 0 H400. BOWEL CONTINENCE (3-DAY ASSESSMENT PERIOD): Always continent CODE: 0 SIGNATURE PANEL: The following modified sections: 1. [id number] Admission Performance, 1. [id number] Admission Performance, 1. [id number] Admission Performance, 1. [id number] Admission Performance, 1. [id number] Admission Performance, 1. [id number] Admission Performance, Code, H350. Bladder Continence (3-day assessment period), H350. Bl adder Continence (3-day assessment period), H400. Bowel Continence (3-day assessment period) were [el ectronically] signed by José Hook on FriFeb 18 2019 11:28:01 T-0600 (Central Standard Time)
== END 2019-02-18 09:45 | disposition home health service (06) | DRG 54 ==
LOC: 5TH 02-06 01:42
PROVIDERS: ADMIT Psychiatry & Neurology Neurology with Special Qualifications in Child Neurology; ATTEND Psychiatry & Neurology Neurology with Special Qualifications in Child Neurology
DX: C79.31 Secondary malignant neoplasm of brain (principal); G93.6 Cerebral edema; G93.5 Compression of brain; E87.0 Hyperosmolality and hypernatremia; G93.40 Encephalopathy, unspecified; G81.94 Hemiplegia, unspecified affecting left nondominant side; E83.51 Hypocalcemia; J98.4 Other disorders of lung; R13.10 Dysphagia, unspecified; E87.6 Hypokalemia
CPT/HCPCS: 36415; 74230; 80048; 81001; 82040; 83735; 84134; 85025; 87086; 87088; 92523; 92611; 97110; 97112; 97116; 97127; 97161; 97530; 97542; J1644; J3030; J8540

== ENCOUNTER 2019-04-12 17:01 | Inpatient (IN) | payer BC ==
--- OUTSIDE RECORDS SUMMARY | 2019-04-12 17:03 | XMS REPORT ---
:1950 [facility] Address [address] [place] [address] Dr. Ramírez. [address] [place] [id number] Care Team Providers Name Role Phone DR TAYLOR MELGOZA Unavailable Unavailable Problems This patient has no known problems. Allergies, Adverse Reactions, Alerts This patient has no known allergies or adverse reactions. Medications This patient has no known medications. Encounters Start End Encounter Admission Attending Care Care Encounter Date/Time Date/Time Type Type Clinicians Facility Department ID 2018-04-17 [place] [facility] [id number] 06:[place]:00 TAYLOR
[2019-04-12] MEDS ORDERED: NA CHLORIDE 0.9% 2,000 ML ONE (17:39)
[2019-04-12] MEDS ORDERED: FAMOTIDINE 20 MG/2 ML VIAL IV ONE (17:39)
--- NOTE | 2019-04-12 17:57 | RAD REPORT ---
EXAM DESCRIPTION: RAD - Chest Single View - 04/12/2019 5:40 pm CLINICAL HISTORY: r/o pe, shortness of breath, positive DVT COMPARISON: No comparisons TECHNIQUE: AP portable chest image was obtained 04/12/2019 5:40 pm . FINDINGS: Lung volumes are low. No acute lung parenchymal process. Heart and vasculature are normal. No measurable pleural effusion and no pneumothorax. No acute bony abnormality seen. No acute aortic finding. Mediastinum is widened by portable technique and shallow inspiration. IMPRESSION: No acute cardiopulmonary process.
[2019-04-12] MEDS ORDERED: HEPARIN 5000 UNIT/ML 1 ML VIAL ONE (18:01)
[2019-04-12] MEDS ORDERED: HEPARIN/D5W 25,000 UNIT/500 ML BAG IV ONE (18:01)
[2019-04-12] MEDS ORDERED: NA CHLORIDE 0.9% 1,000 ML ONE (18:01)
[2019-04-12 18:31] LABS: Absolute Lymphocytes (CBC) 0.7 K/uL (0.7-4.9); Basophils % 0.8 % (0-1.3); Hematocrit 37.8 % (36.0-45.0); Lymphocytes % 9.1 % (15.3-44.8); RBC Red Blood Cell Count 4.07 M/uL (3.86-4.86)
[2019-04-12 18:32] LABS: Protime INR 1.29
[2019-04-12 18:49] LABS: ALT/SGPT 9 U/L (12-78); AST/SGOT 10 U/L (15-37); Alkaline Phosphatase 67 U/L (45-117); BUN Blood Urea Nitrogen 21 mg/dL (7-18); Bicarbonate 26 mmol/L (21-32); Bilirubin Direct 0.2 mg/dL (0-0.2); Bilirubin Total 0.7 mg/dL (0.2-1.0); Glucose Level 112 mg/dL (74-106); Magnesium 2.1 mg/dL (1.8-2.4); NT PRO-BNP 7492 pg/mL (<125); Potassium 3.8 mmol/L (3.5-5.1); Sodium Level 140 mmol/L (136-145); Troponin (Emerg Dept Use Only) < 0.02 ng/mL (0.0-0.045)
[2019-04-12] MEDS ORDERED: ONDANSETRON 4 MG/2 ML VIAL IV PRN (19:37)
[2019-04-12] MEDS: NA CHLORIDE 0.9% 1,000 ML IV SCH (20:00)
[2019-04-12] MEDS ORDERED: HEPARIN/D5W 25,000 UNIT/500 ML BAG IV SCH (20:00)
--- NOTE | 2019-04-12 20:29 | RAD REPORT ---
EXAM DESCRIPTION: CT - Head Brain Wo Cont - 04/12/2019 8:12 pm CLINICAL HISTORY: DIZZINESS, history of brain tumor removal COMPARISON: No comparisons TECHNIQUE: Axial 5 mm thick images of the head were obtained without IV contrast. All CT scans are performed using dose optimization technique as appropriate and may include automated exposure control or mA/KV adjustment according to patient size. FINDINGS: No intracranial hemorrhage present. No acute cortical based infarction identifiable. Posts urgical changes are present to the right-side frontal and temporal bones. There is a large area of CS F attenuation in the right middle cranial fossa from prior resection of portions of the temporal lobe . There is decreased attenuation that extends posteriorly along the posterior margin of the thalamus. This is probably all part of the same postsurgical change. No comparison is available. The patient h as extensive cerebral white matter disease that may be from chronic ischemic change or possibly from radiation if performed. No significant volume loss overall. Ventricles are normal. No acute cortical edema or sulcal effacement. Mastoid air cells and visualized portions of the paranasal sinuses are clear. No acute bony findings. IMPRESSION: Postsurgical changes involving the right temporal lobe from tumor resection. Surrounding brain parenchymal hypo density is probably part of the surgical process. No comparison is available. 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 No intracranial hemorrhage is present. No acute cortical based infarction.
--- NOTE | 2019-04-12 20:31 | ER ---
Nurse's Notes [facility] Name: Yamilka Adkins Age: 68 yrs Sex: Female : 1950 Arrival Date: 04/12/2019 Time: 17:04 Bed 6 Private MD: Diagnosis: Dyspnea;Acute embolism and thrombosis of other specified deep vein of left lower extremity;Weakness;Pulmonary embolism-suspect pe;Unspecified kidney failure Presentation: 04/12 17:00 Presenting complaint: Patient states: SOB x 5 days, went to PCP and had outpatient US jl7 of lower extremity, confirmed DVT of LLE. Transition of care: patient was received from another setting of care (ambulatory primary care physician practice), Dr. Baker. Onset of symptoms was April 08, 2019. Risk Assessment: Do you want to hurt yourself or someone else? Patient reports no desire to harm self or others. Initial Sepsis Screen: Does the patient meet any 2 criteria? Systolic BP < 90 mmHg. No. Patient's initial sepsis screen is negative. Does the patient have a suspected source of infection? No. Patient's initial sepsis screen is negative. 17:00 Method Of Arrival: Wheelchair jl7 17:00 Acuity: RAISA 2 jl7 Historical: - Allergies: 17:45 No Known Allergies; jl7 - Home Meds: 17:45 eplerenone oral oral [Active]; spironolactone 50 mg Oral tab [Active]; pindolol 5 mg jl7 Oral tab 1 tab 2 times per day [Active]; atorvastatin 20 mg oral tab 1 tab once daily [Active]; Zofran (as hydrochloride) 8 mg Oral tab [Active]; - PMHx: 17:45 Hypertension; Cancer, Brain; High Cholesterol; jl7 - PSHx: 17:45 brain tumor removal; jl7 - Immunization history:: Adult Immunizations unknown. - Coronavirus screen:: The patient has NOT traveled to [place], [place], or [place] in the past 14 days. Proceed with normal triage process as indicated. - Family history:: not pertinent. - Social history:: Smoking status: Patient denies any tobacco usage or history of. - Ebola Screening: : No symptoms or risks identified at this time. Screenin:48 Abuse screen: Denies threats or abuse. Denies injuries from another. Nutritional jl7 screening: No deficits noted. Tuberculosis screening: No symptoms or risk factors identified. Fall Risk IV access (20 points). Total Coronado Fall Scale indicates No Risk (0-24 pts). Assessment: 19:05 General: Appears in no apparent distress. comfortable, Behavior is calm, cooperative, aa1 appropriate for age. Pain: Denies pain. Neuro: Level of Consciousness is awake, alert, obeys commands, Oriented to person, place, time, situation, Moves all extremities. Speech is normal. Cardiovascular: Heart tones S1 S2 present Rhythm is regular. Respiratory: Reports shortness of breath on exertion since 5 days Airway is patent Respiratory effort is even, unlabored, Respiratory pattern is regular, symmetrical, Breath sounds are clear bilaterally. GI: No signs and/or symptoms were reported involving the gastrointestinal system. : No signs and/or symptoms were reported regarding the genitourinary system. EENT: No signs and/or symptoms were reported regarding the EENT system. Derm: Skin is intact, is healthy with good turgor, Skin is pink, warm \T\ dry. Musculoskeletal: Circulation, motion, and sensation intact. Capillary refill < 3 seconds, Range of motion: intact in all extremities. 19:57 Reassessment: Patient appears in no apparent distress at this time. Patient and/or aa1 family updated on plan of care and expected duration. Pain level reassessed. Patient is alert, oriented x 3, equal unlabored respirations, skin warm/dry/pink. Pt taken to CT at this time. 21:00 Reassessment: Patient appears in no apparent distress at this time. No changes from aa1 previously documented assessment. Patient and/or family updated on plan of care and expected duration. Pain level reassessed. Patient is alert, oriented x 3, equal unlabored respirations, skin warm/dry/pink. Awaiting bed assignment. 22:15 Reassessment: Patient appears in no apparent distress at this time. No changes from aa1 previously documented assessment. Patient and/or family updated on plan of care and expected duration. Pain level reassessed. Patient is alert, oriented x 3, equal unlabored respirations, skin warm/dry/pink. Pt still awaiting bed assignment. 23:30 Reassessment: Patient appears in no apparent distress at this time. Patient and/or aa1 family updated on plan of care and expected duration. Pain level reassessed. Patient is alert, oriented x 3, equal unlabored respirations, skin warm/dry/pink. Pt placed in ER hold at this time Patient denies pain at this time. Vital Signs: 17:05 BP 91 / 77; Pulse 84; Resp 24 S; Temp 96.9(TE); Pulse Ox 90% on R/A; Weight 74.84 kg jl7 (R); Height 5 ft. 6 in. (167.64 cm) (R); Pain 0/10; 17:47 BP 83 / 72; Pulse 79; Resp 22 S; Pulse Ox 94% on R/A; jl7 18:00 BP 96 / 71; Pulse 74; Resp 17 S; Pulse Ox 96% 2 lpm ; jl7 18:31 BP 97 / 69; Pulse 81; Resp 21 S; Pulse Ox 96% on 2 lpm NC; jl7 19:30 BP 96 / 72; Pulse 83; Resp 16; Pulse Ox 97% on 2 lpm NC; Pain 0/10; aa1 20:30 BP 109 / 72; Pulse 85; Resp 20; Temp 97.2; Pulse Ox 97% on 2 lpm NC; Pain 0/10; aa1 21:30 BP 111 / 89; Pulse 87; Resp 18; Pulse Ox 96% on 2 lpm NC; Pain 0/10; aa1 22:30 BP 100 / 77; Pulse 82; Resp 20; Pulse Ox 95% on 2 lpm NC; Pain 0/10; aa1 23:30 BP 100 / 76; Pulse 86; Resp 18; Temp 97.0; Pulse Ox 95% on 2 lpm NC; Pain 0/10; aa1 17:05 Body Mass Index 26.63 (74.84 kg, 167.64 cm) jl7 ED Course: 17:04 Patient arrived in ED. mr 17:07 Sam Leija MD is Attending Physician. paolo 17:13 Micaela Reyes RN is Primary Nurse. jl7 17:20 Missed attempt(s): 22 gauge in left wrist. jl7 17:39 Triage completed. jl7 17:45 Arm band placed on right wrist. jl7 17:48 Patient has correct armband on for positive identification. Placed in gown. Bed in low jl7 position. Call light in reach. Side rails up X 1. button sewer on. Pulse ox on. NIBP on. Warm blanket given. 18:01 Amy Gonzalez MD is Hospitalizing Provider. [facility] 18:15 Lab(s) recollected, by me, sent to lab. Accessed peripheral vein via ultrasound, sg utilizing dynamic ultrasound technique Blood collected. using per hospital protocol. Good blood return. Flushes easily. 18 G, 10 CM, PowerGlide Midline to the RUE. 19:05 Oxygen administration via nasal cannula \T\ 2L/min. aa1 22:57 No provider procedures requiring assistance completed. Patient admitted, IV remains in aa1 place. 04/13 07:43 Primary Nurse role handed off by Micaela Reyes RN 07:43 Sabrina Atkins, WALI is Primary Nurse. sv 19:05 Primary Nurse role handed off by Sabrina Atkins, WALI sv Administered Medications: 04/12 18:10 Drug: Pepcid 20 mg Route: IVP; Site: right upper arm; 7 18:52 Follow up: Response: No adverse reaction 7 18:17 Drug: NS 0.9% 1000 ml Route: IV; Rate: 1 bolus; Site: right upper arm; jl7 18:53 Follow up: Response: No adverse reaction; IV Status: Completed infusion; IV Intake: jl7 1000ml 18:19 Drug: NS 0.9% 1000 ml Route: IV; Rate: 125 ml/hr; Site: right upper arm; jl7 18:52 Follow up: IV Status: Infusion continued upon admission jl7 18:19 Drug: Heparin (DVT/PE- Bolus per protocol) - HEParin 80 units/kg {Co-Signature: nidia jl7 (Rahul Lynn RN).} Route: IVP; Site: right upper arm; 18:52 Follow up: Response: No adverse reaction jl7 18:20 Drug: Heparin (DVT/PE Drip) 18 units/kg/hr - (HEParin 54779 units, D5W 500 ml) jl7 {Co-Signature: em (Rahul Lynn RN).} Route: IV; Rate: per protocol; Site: right upper arm; 18:53 Follow up: Response: No adverse reaction; IV Status: Infusion continued upon admission jl7 18:52 Drug: NS 0.9% 1000 ml Route: IV; Rate: 1 bolus; Site: right upper arm; jl7 21:04 Follow up: IV Status: Completed infusion; IV Intake: 1000ml aa1 Intake: 18:53 IV: 1000ml; Total: 1000ml. jl7 21:04 IV: 1000ml; Total: 2000ml. aa1 Outcome: 17:39 ER care complete, transfer ordered by . paolo 18:04 Decision to Hospitalize by Provider. paolo 23:30 Admitted to ER Hold. Please see [facility] for further documentation. aa1 23:30 Condition: stable 23:30 Instructed on the need for admit, Demonstrated understanding of instructions. 04/13 15:42 Patient left the ED. sg Signatures: Sabrina Atkins, RN RN Sandoval Mayo RN RN sg Genevieve Roberson RN RN aa1 Sam Leija MD MD cha Rivera, Micaela Matute RN RN jl7 Rahul Lynn RN Corrections: (The following items were deleted from the chart) 04/12 17:47 17:45 BP 91 / 77; Pulse 84bpm; Resp 16bpm; Spontaneous; Pulse Ox 90% RA; Temp 96.9F jl7 Temporal; 74.84 kg Reported; Height 5 ft. 6 in. Reported; BMI: 26.6; Pain 0/10; jl7 17:48 17:45 BP 91 / 77; Pulse 84bpm; Resp 24bpm; Spontaneous; Pulse Ox 90% RA; Temp 96.9F jl7 Temporal; 74.84 kg Reported; Height 5 ft. 6 in. Reported; BMI: 26.6; Pain 0/10; jl7
--- NOTE | 2019-04-12 20:31 | EDPHYS ---
Physician Documentation [facility] Name: Yamilka Adkins Age: 68 yrs Sex: Female : 1950 Arrival Date: 04/12/2019 Time: 17:04 Bed 6 Private MD: ED Physician Sam Leija HPI: 04/12 17:11 This 68 yrs old Female presents to ER via Unassigned with complaints of left paolo leg swelling and sob. 17:11 The patient presents with decreased range of motion, pain, swelling, tenderness. The paolo complaints affect the lateral aspect of left thigh, lateral aspect of left calf, left hamstring, left calf, medial aspect of left thigh and medial aspect of left calf. Context: The problem was sustained at an unknown site. Onset: The symptoms/episode began/occurred 2 day(s) ago. Modifying factors: The symptoms are alleviated by nothing. the symptoms are aggravated by nothing. Associated signs and symptoms: The patient has no apparent associated signs or symptoms. Historical: - Allergies: 17:45 No Known Allergies; jl7 - Home Meds: 17:45 eplerenone oral oral [Active]; spironolactone 50 mg Oral tab [Active]; pindolol 5 mg jl7 Oral tab 1 tab 2 times per day [Active]; atorvastatin 20 mg oral tab 1 tab once daily [Active]; Zofran (as hydrochloride) 8 mg Oral tab [Active]; - PMHx: 17:45 Hypertension; Cancer, Brain; High Cholesterol; jl7 - PSHx: 17:45 brain tumor removal; jl7 - Immunization history:: Adult Immunizations unknown. - Coronavirus screen:: The patient has NOT traveled to [place], [place], or [place] in the past 14 days. Proceed with normal triage process as indicated. - Family history:: not pertinent. - Social history:: Smoking status: Patient denies any tobacco usage or history of. - Ebola Screening: : No symptoms or risks identified at this time. ROS: 17:12 Constitutional: Negative for fever, chills, and weight loss, Eyes: Negative for injury, paolo pain, redness, and discharge, ENT: Negative for injury, pain, and discharge, Neck: Negative for injury, pain, and swelling, Cardiovascular: Negative for chest pain, palpitations, and edema, Abdomen/GI: Negative for abdominal pain, nausea, vomiting, diarrhea, and constipation, Back: Negative for injury and pain, : Negative for injury, bleeding, discharge, and swelling, MS/Extremity: Negative for injury and deformity, Skin: Negative for injury, rash, and discoloration, Neuro: Negative for headache, weakness, numbness, tingling, and seizure, Psych: Negative for depression, anxiety, suicide ideation, homicidal ideation, and hallucinations, Allergy/Immunology: Negative for hives, rash, and allergies, Endocrine: Negative for neck swelling, polydipsia, polyuria, polyphagia, and marked weight changes. 17:12 Respiratory: Positive for cough, shortness of breath, at rest. Exam: 17:12 Constitutional: This is a well developed, well nourished patient who is awake, alert, paolo and in no acute distress. Head/Face: Normocephalic, atraumatic. Eyes: Pupils equal round and reactive to light, extra-ocular motions intact. Lids and lashes normal. Conjunctiva and sclera are non-icteric and not injected. Cornea within normal limits. Periorbital areas with no swelling, redness, or edema. ENT: Nares patent. No nasal discharge, no septal abnormalities noted. Tympanic membranes are normal and external auditory canals are clear. Oropharynx with no redness, swelling, or masses, exudates, or evidence of obstruction, uvula midline. Mucous membranes moist. Neck: Trachea midline, no thyromegaly or masses palpated, and no cervical lymphadenopathy. Supple, full range of motion without nuchal rigidity, or vertebral point tenderness. No Meningismus. Chest/axilla: Normal chest wall appearance and motion. Nontender with no deformity. No lesions are appreciated. Cardiovascular: Regular rate and rhythm with a normal S1 and S2. No gallops, murmurs, or rubs. Normal PMI, no JVD. No pulse deficits. Respiratory: Lungs have equal breath sounds bilaterally, clear to auscultation and percussion. No rales, rhonchi or wheezes noted. No increased work of breathing, no retractions or nasal flaring. Abdomen/GI: Soft, non-tender, with normal bowel sounds. No distension or tympany. No guarding or rebound. No evidence of tenderness throughout. Back: No spinal tenderness. No costovertebral tenderness. Full range of motion. Skin: Warm, dry with normal turgor. Normal color with no rashes, no lesions, and no evidence of cellulitis. Neuro: Awake and alert, GCS 15, oriented to person, place, time, and situation. Cranial nerves II-XII grossly intact. Motor strength 5/5 in all extremities. Sensory grossly intact. Cerebellar exam normal. Normal gait. Psych: Awake, alert, with orientation to person, place and time. Behavior, mood, and affect are within normal limits. 17:12 Musculoskeletal/extremity: Circulation is intact in all extremities. Sensation intact. Compartment Syndrome exam of affected extremity: is normal. DVT Exam: no appreciated bluish discoloration, no erythema, no increased warmth, pain, swelling, tenderness. Vital Signs: 17:05 BP 91 / 77; Pulse 84; Resp 24 S; Temp 96.9(TE); Pulse Ox 90% on R/A; Weight 74.84 kg 7 (R); Height 5 ft. 6 in. (167.64 cm) (R); Pain 0/10; 17:47 BP 83 / 72; Pulse 79; Resp 22 S; Pulse Ox 94% on R/A; jl7 18:00 BP 96 / 71; Pulse 74; Resp 17 S; Pulse Ox 96% 2 lpm ; jl7 18:31 BP 97 / 69; Pulse 81; Resp 21 S; Pulse Ox 96% on 2 lpm NC; jl7 19:30 BP 96 / 72; Pulse 83; Resp 16; Pulse Ox 97% on 2 lpm NC; Pain 0/10; aa1 20:30 BP 109 / 72; Pulse 85; Resp 20; Temp 97.2; Pulse Ox 97% on 2 lpm NC; Pain 0/10; aa1 21:30 BP 111 / 89; Pulse 87; Resp 18; Pulse Ox 96% on 2 lpm NC; Pain 0/10; aa1 22:30 BP 100 / 77; Pulse 82; Resp 20; Pulse Ox 95% on 2 lpm NC; Pain 0/10; aa1 23:30 BP 100 / 76; Pulse 86; Resp 18; Temp 97.0; Pulse Ox 95% on 2 lpm NC; Pain 0/10; aa1 17:05 Body Mass Index 26.63 (74.84 kg, 167.64 cm) [facility] MDM: 17:07 Patient medically screened. [facility] 17:14 Data reviewed: vital signs, nurses notes, lab test result(s), EKG, radiologic studies, [facility] CT scan, doppler, plain films. 04/12 17:11 Order name: Basic Metabolic Panel [facility] 04/12 17:11 Order name: CBC with Diff [facility] 04/12 17:11 Order name: LFT's [facility] 04/12 17:11 Order name: Magnesium [facility] 04/12 17:11 Order name: NT PRO-BNP [facility] 04/12 17:11 Order name: PT-INR [facility] 04/12 17:11 Order name: Troponin (emerg Dept Use Only) [facility] 04/12 19:31 Order name: Basic Metabolic Panel; Complete Time: 07:09 [facility] 04/12 19:32 Order name: Liver (Hepatic) Function; Complete Time: 07:09 [facility] 04/12 19:32 Order name: Troponin (Emerg Dept Use Only); Complete Time: 07:09 [facility] 04/12 19:32 Order name: NT PRO-BNP; Complete Time: 07:09 [facility] 04/12 19:32 Order name: Magnesium; Complete Time: 07:09 [facility] 04/12 23:25 Order name: PTT, Activated Partial Thromb; Complete Time: 07:09 EDMS 04/13 00:33 Order name: Troponin I; Complete Time: 07:09 [facility] 04/12 17:11 Order name: XRAY Chest (1 view) [facility] 04/12 17:11 Order name: CT Chest For PE Angio [facility] 04/12 17:11 Order name: CT Head Brain wo Cont [facility] 04/12 19:36 Order name: RAD; Complete Time: 07:09 [facility] 04/12 21:01 Order name: CT; Complete Time: 22:20 [facility] 04/12 21:01 Order name: CT; Complete Time: 07:09 EDMS 04/13 04:46 Order name: CBC with Automated Diff; Complete Time: 07:09 EDMS 04/13 04:47 Order name: PTT, Activated Partial Thromb; Complete Time: 07:09 EDMS 04/13 04:50 Order name: Lactate; Complete Time: 07:09 EDMS 04/13 04:53 Order name: Comprehensive Metabolic Panel; Complete Time: 07:09 [facility]MS 04/13 04:53 Order name: Phosphorus; Complete Time: 07:09 [facility] 04/13 04:53 Order name: Troponin I; Complete Time: 07:09 [facility] 04/13 04:53 Order name: NT PRO-BNP; Complete Time: 07:09 [facility] 04/13 04:53 Order name: Lipid Profile; Complete Time: 07:09 [facility] 04/13 04:53 Order name: Magnesium; Complete Time: 07:09 [facility] 04/13 08:33 Order name: PTT, Activated Partial Thromb [facility] 04/12 17:11 Order name: EKG; Complete Time: 19:40 [facility] 04/12 17:11 Order name: Cardiac monitoring; Complete Time: 17:41 [facility] 04/12 17:11 Order name: EKG - Nurse/Tech; Complete Time: 17:41 [facility] 04/12 17:11 Order name: IV Saline Lock; Complete Time: 18:15 [facility] 04/12 17:11 Order name: Labs collected and sent; Complete Time: 18:15 [facility] 04/12 17:11 Order name: O2 Per Protocol; Complete Time: 17:41 [facility] 04/12 17:11 Order name: O2 Sat Monitoring; Complete Time: 17:41 [facility] 04/12 17:56 Order name: Labs - recollect needed: recollect everything; Complete Time: 18:15 bd Administered Medications: 18:10 Drug: Pepcid 20 mg Route: IVP; Site: right upper arm; jl7 18:52 Follow up: Response: No adverse reaction jl7 18:17 Drug: NS 0.9% 1000 ml Route: IV; Rate: 1 bolus; Site: right upper arm; jl7 18:53 Follow up: Response: No adverse reaction; IV Status: Completed infusion; IV Intake: jl7 1000ml 18:19 Drug: NS 0.9% 1000 ml Route: IV; Rate: 125 ml/hr; Site: right upper arm; jl7 18:52 Follow up: IV Status: Infusion continued upon admission jl7 18:19 Drug: Heparin (DVT/PE- Bolus per protocol) - HEParin 80 units/kg {Co-Signature: nidia jl7 (Rahul Lynn RN).} Route: IVP; Site: right upper arm; 18:52 Follow up: Response: No adverse reaction 7 18:20 Drug: Heparin (DVT/PE Drip) 18 units/kg/hr - (HEParin 14821 units, D5W 500 ml) jl7 {Co-Signature: em (Rahul Lynn RN).} Route: IV; Rate: per protocol; Site: right upper arm; 18:53 Follow up: Response: No adverse reaction; IV Status: Infusion continued upon admission jl7 18:52 Drug: NS 0.9% 1000 ml Route: IV; Rate: 1 bolus; Site: right upper arm; jl7 21:04 Follow up: IV Status: Completed infusion; IV Intake: 1000ml aa1 Disposition: 04/12/19 18:04 Hospitalization ordered by Amy Gonzalez for Inpatient Admission. Preliminary diagnosis are Dyspnea, Acute embolism and thrombosis of other specified deep vein of left lower extremity, Weakness, Pulmonary embolism - suspect pe, Unspecified kidney failure. - Bed requested for Intensive Care Unit. - Status is Inpatient Admission. sg - Condition is Fair. - Problem is new. - Symptoms are unchanged. Signatures: Dispatcher [employer] EDCarmen Beavers Steven, RN RN sg Anderson, Corey, MD MD cha Garcia, Cindy RN WALI Micaela Reyes RN RN jl Ubaldo Vela MD MD [facility] Bere Smallwood [facility] Genevieve Roberson RN aa1 Rahul Lynn RN em Corrections: (The following items were deleted from the chart) 17:42 17:39 04/12/2019 17:39 Transfer ordered to [facility]. Diagnosis is Acute paolo embolism and thrombosis of other specified deep vein of left lower extremity; Dyspnea; Pulmonary embolism - clinically. Reason for transfer: Higher level of care. Accepting physician is to tele. Condition is Serious. Problem is new. Symptoms have improved. [facility] 17:42 17:42 04/12/2019 17:39 Transfer ordered to [facility]. Diagnosis is Acute paolo embolism and thrombosis of other specified deep vein of left lower extremity; Dyspnea; Pulmonary embolism - clinically; Unspecified kidney failure. Reason for transfer: Higher level of care. Accepting physician is to tele. Condition is Serious. Problem is new. Symptoms have improved. paolo 18:01 17:42 04/12/2019 17:39 Transfer ordered to [facility]. Diagnosis is Acute paolo embolism and thrombosis of other specified deep vein of left lower extremity; Dyspnea; Pulmonary embolism - clinically; Unspecified kidney failure. Reason for transfer: Higher level of care. Accepting physician is to icu. Condition is Serious. Problem is new. Symptoms have improved. paolo 20:16 18:04 Hospitalization Ordered by Amy Gonzalez MD for Inpatient Admission. Preliminary mw2 diagnosis is Dyspnea; Acute embolism and thrombosis of other specified deep vein of left lower extremity; Weakness; Pulmonary embolism - suspect pe; Unspecified kidney failure. Bed requested for Intensive Care Unit. Status is Inpatient Admission. Condition is Fair. Problem is new. Symptoms are unchanged. paolo 21:44 20:16 04/12/2019 18:04 Hospitalization Ordered by Amy Gonzalez MD for Inpatient cg Admission. Preliminary diagnosis is Dyspnea; Acute embolism and thrombosis of other specified deep vein of left lower extremity; Weakness; Pulmonary embolism - suspect pe; Unspecified kidney failure. Bed requested for Intensive Care Unit. Status is Inpatient Admission. Condition is Fair. Problem is new. Symptoms are unchanged. mw2 21:47 21:44 04/12/2019 18:04 Hospitalization Ordered by Amy Gonzalez MD for Inpatient cg Admission. Preliminary diagnosis is Dyspnea; Acute embolism and thrombosis of other specified deep vein of left lower extremity; Weakness; Pulmonary embolism - suspect pe; Unspecified kidney failure. Bed requested for Intensive Care Unit. Status is Inpatient Admission. Condition is Fair. Problem is new. Symptoms are unchanged. cg 04/13 14:28 04/12 21:47 04/12/2019 18:04 Hospitalization Ordered by Amy Gonzalez MD for Inpatient bd Admission. Preliminary diagnosis is Dyspnea; Acute embolism and thrombosis of other specified deep vein of left lower extremity; Weakness; Pulmonary embolism - suspect pe; Unspecified kidney failure. Bed requested for [facility] ER HOLD. Status is Inpatient Admission. Condition is Fair. Problem is new. Symptoms are unchanged. cg 04/13 15:42 14:28 04/12/2019 18:04 Hospitalization Ordered by Amy Gonzalez MD for Inpatient sg Admission. Preliminary diagnosis is Dyspnea; Acute embolism and thrombosis of other specified deep vein of left lower extremity; Weakness; Pulmonary embolism - suspect pe; Unspecified kidney failure. Bed requested for Intensive Care Unit. Status is Inpatient Admission. Condition is Fair. Problem is new. Symptoms are unchanged. bd
--- NOTE | 2019-04-12 20:34 | RAD REPORT ---
EXAM DESCRIPTION: CT - Chest For Pe Angio - 04/12/2019 8:13 pm CLINICAL HISTORY: DYSPNEA DYSPNEA , DVT, brain tumor history COMPARISON: Extremity Venous Uni Ltd dated 04/12/2019; Chest Single View dated 04/12/2019 TECHNIQUE: Dynamically enhanced 3 mm thick images of the chest were obtained during administration o f approximately 150mL Isovue 370 IV contrast. Coronal and oblique MIP reconstruction images were gene rated and reviewed. Exam utilizes a protocol to evaluate the pulmonary arterial tree. All CT scans are performed using dose optimization technique as appropriate and may include automated exposure control or mA/KV adjustment according to patient size. FINDINGS: A large pulmonary embolus is present arising in the main pulmonary vein and extending into the left pulmonary vein. This enlarges the vein. Embolic disease fills the left upper lobe and left lower lobe pulmonary arteries. There is segmental branch extension in the left upper and left lower l obes. No left-sided pulmonary hemorrhage changes are identified. There is a large amount of pulmonary embolic disease filling the right pulmonary artery extending into the right upper lobe and right low er lobe pulmonary arteries. Segmental branch pulmonary embolic disease noted on the right lower lobe. No saddle embolus. Pulmonary arteries are enlarged. No right-sided pulmonary hemorrhage. The aorta as imaged shows no acute or suspicious finding. No pericardial thickening or effusion. No infiltrate or mass in the lung parenchyma. No pleural effusion or pleural thickening. No mediastinal or hilar suspicious masses. No chest wall masses or abnormal axillary lymphadenopathy. Findings telephoned to the emergency department 8:30 p.m.. IMPRESSION: Very extensive pulmonary embolic disease filling the majority of the each right and left main pulmonary artery and filling the 5 lobar pulmonary arteries. Segmental branch embolic disease i s present as well. No pulmonary hemorrhage or acute lung parenchymal process.
[2019-04-13] MEDS ORDERED: NA CHLORIDE 0.9% 1,000 ML ONE ×2 (02:57→15:19)
[2019-04-13 04:33] LABS: Absolute Lymphocytes (CBC) 1.1 K/uL (0.7-4.9); Basophils % 1.3 % (0-1.3); Hematocrit 33.1 % (36.0-45.0); Lymphocytes % 17.3 % (15.3-44.8); MPV 8.4 fL (7.6-11.3); RBC Red Blood Cell Count 3.59 M/uL (3.86-4.86)
[2019-04-13 04:50] LABS: Albumin 2.6 g/dL (3.4-5.0); Bilirubin Total 0.5 mg/dL (0.2-1.0); Magnesium 1.9 mg/dL (1.8-2.4); Phosphorus 3.4 mg/dL (2.5-4.9); Potassium 3.2 mmol/L (3.5-5.1); Troponin I 0.02 ng/mL (0.0-0.045)
[2019-04-13] MEDS ORDERED: POTASSIUM 25 MEQ EFFERV TAB ONE (05:44)
[2019-04-13] MEDS ORDERED: POTASSIUM 25 MEQ EFFERV TAB PO ONE (05:48)
[2019-04-13] MEDS ORDERED: ACETAMINOPHEN 500 MG TAB ONE (07:28)
[2019-04-13] MEDS: ACETAMINOPHEN 500 MG TAB PO PRN ×2 (07:31→18:33)
--- NOTE | 2019-04-13 08:49 | EKG ---
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
[2019-04-13] MEDS: NA CHLORIDE 0.9% 1,000 ML IV SCH ×2 (09:20→13:00)
--- NOTE | 2019-04-13 11:45 | ECHO ---
HEIGHT: 5 ft 6 in WEIGHT: 165 lb 0 oz DATE OF STUDY: 04/13/[address]: Amy Gonzalez MD 2-DIMENSIONAL: YES M.MODE: YES DOPPLER: YES COLOR FLOW: YES TDS: PORTABLE: YES DEFINITY: BUBBLE STUDY: DIAGNOSIS: RIGHT VENTRICULAR STRAIN, PULMONARY EMBOLISM CARDIAC HISTORY: CATHERIZATION: NO SURGERY: NO PROSTHETIC VALVE: NO PACEMAKER: NO MEASUREMENTS (cm) DIASTOLIC (NORMALS) SYSTOLIC (NORMALS) IVSd 0.9 (0.6-1.2) LA Diam 2.9 (1.9-4.0) LVEF 62% LVIDd 2.9 (3.5-5.7) LVIDs 2.0 (2.0-3.5) %FS 32% LVPWd 1.0 (0.6-1.2) Ao Diam 3.3 (2.0-3.7) 2 DIMENSIONAL ASSESSMENT: RIGHT ATRIUM: NORMAL LEFT ATRIUM: NORMAL RIGHT VENTRICLE: PROMINENT MODERATOR BAND NORMAL VARIENT LEFT VENTRICLE: NORMAL TRICUSPID VALVE: NORMAL MITRAL VALVE: NORMAL PULMONIC VALVE: NORMAL AORTIC VALVE: NORMAL PERICARDIAL EFFUSION: NONE AORTIC ROOT: NORMAL LEFT VENTRICULAR WALL MOTION: NORMAL DOPPLER/COLOR FLOW: MILD TRICUSPID REGURGITATION. ESTIMATED RIGHT VENTRICULAR SYSTOLIC PRESSURE 50 mmHg (MODERATE PULMONARY HYPERTENSION). COMMENTS: NORMAL LEFT VENTRICULAR EJECTION FRACTION. MILD TRICUSPID REGURGITATION. MODERATE PULMONARY HYPERTENSION. TECHNOLOGIST: CAREY FR[place]
--- NOTE | 2019-04-13 12:19 | P.PN ---
Subjective Date of Service: 04/13/19 Primary Care Provider: Dr. Baker; Oncology-Dr. Cross/Rad.Onc-Dr. Souza([place]) Subjective: Improving, Doing well Physical Examination - Vital Signs Temperature: 98 F Blood Pressure: 97/73 Pulse: 91 Respirations: 20 Pulse Ox (%): 96 - Physical Exam General: Alert, In no apparent distress, Oriented x3, Cooperative HEENT: Atraumatic, Other (Surgical scar to the right temporal region) Neck: Supple Respiratory: Clear to auscultation bilaterally, Normal air movement Cardiovascular: Normal pulses, Regular rate/rhythm Gastrointestinal: Normal bowel sounds, Soft and benign, Non-distended Neurological: Normal speech, Normal strength at 5/5 x4 extr, Normal tone, Normal affect - Studies Laboratory Data (last 24 hrs) 04/12/19 18:10: WBC 7.9, Hgb 12.5, Hct 37.8, Plt Count 202 04/12/19 18:10: PT 15.1 H, INR 1.29 04/12/19 18:10: Sodium 140, Potassium 3.8, BUN 21 H, Creatinine 1.44 H, Glucose 112 H, Magnesium 2.1, Total Bilirubin 0.7, AST 10 L, ALT 9 L, Alkaline Phosphatase 67 04/12/19 17:11: PT Cancelled, INR Cancelled 04/12/19 17:11: WBC Cancelled, Hgb Cancelled, Hct Cancelled, Plt Count Cancelled 04/12/19 17:11: Sodium Cancelled, Potassium Cancelled, BUN Cancelled, Creatinine Cancelled, Glucose Cancelled, Magnesium Cancelled, Total Bilirubin Cancelled, AST Cancelled, ALT Cancelled, Alkaline Phosphatase Cancelled Medications List Reviewed: Yes Assessment & Plan Discharge Plan: Home Plan to discharge in: 48 Hours Physician Review Additional Text: Impression: Acute pulmonary emboli with extensive pulmonary embolic disease filling the majority of the right and left main artery and 5 lobar pulmonary arteries Hypotension likely related to above and acute renal injury Hypokalemia 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 Echocardiogram shows ejection fraction within normal range. Mild tricuspid regurgitation noted. Estimated right ventricular systolic pressure at 50. No need for transfer at this time. Pulmonology recommends to discontinue heparin drip and transition over to Lovenox. Will try to get a hold of her oncologist to further address. Anticipate discharge in the next 48 hr pending clinical improvement. Patient will likely require Lovenox at discharge. Hypotension likely related to above and acute renal injury: Continue IV fluids. Will monitor closely. Renal function has improved. Hypokalemia: Will monitor and replace appropriately. Replacement protocol in place. 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 CT scan reviewed. Patient was to have follow up with neurosurgeon/oncology soon. Will need to verify and restart home medication. Time Spent Managing Pts Care (In Minutes): 55
--- NOTE | 2019-04-13 12:37 | P.CNS ---
Date of Consult: 04/13/19 Reason for Consult: Pulmonary embolism Primary Care Provider: Dr. Baker; Oncology-Dr. Cross/Rad.Onc-Dr. Souza([place]) Chief Complaint: Shortness of breath History of Present Illness: Patient is 68 years of age had that surgery in January for removal of right- sided brain tumor followed by chemotherapy and I think radiation started having dyspnea over the past 3 days went to see Dr. Baker found to have DVT and was sent to the emergency room she is shortness of breath on mild exertion denies any chest pain cough sputum or hemoptysis Allergies No Known Allergies Allergy (Unverified 02/06/19 02:49) Home Medications: Docusate [Colace Cap*] 1 tab PO BID 02/06/19 Famotidine [Pepcid*] 20 mg PO BID 02/06/19 Levetiracetam [Keppra] 1,000 mg PO BID 02/06/19 Polyethylene Glycol 3350 [Miralax] 1 packet PO DAILY 02/06/19 dexAMETHasone [Dexamethasone] 1 tab PO TID 02/06/19 Sumatriptan [Imitrex*] 6 mg SQ BID PRN #9 vial 02/17/19 Topiramate [Topamax*] 50 mg PO BID #60 tab 02/17/19 traMADol HCL [Ultram*] 50 mg PO Q4H PRN #60 tab 02/17/19 - Past Medical/Surgical History Diabetic: No -: HTN -: HLD -: CVA -: TIA -: Dysphagia -: Malignent Neoplasm of Brain -: Cerebral Edema -: Hemiplegia and Hemiparesis (Left side) -: Acute Encephalopathy -: Brain Compression -: R side craniotomy 01/26/2019 - Family History Mother Medical History: Heart disease Father Medical History: Diabetes, Cancer Sister Medical History: Lung disease, Cancer - Social History Alcohol use: Yes CD- Drugs: No Caffeine use: No Place of Residence: Home Review of Systems 10-point ROS is otherwise unremarkable General: Weakness Respiratory: Shortness of Breath Physical Examination Temp Pulse Resp BP Pulse Ox 98 F 91 H 20 97/73 96 04/13/19 12:19 04/13/19 12:19 04/13/19 12:19 04/13/19 12:19 04/13/19 12:19 General: Alert, Oriented x3 HEENT: Atraumatic Neck: Supple Respiratory: Clear to auscultation bilaterally, Friction rub Cardiovascular: Regular rate/rhythm, Normal S1 S2, Edema (Left leg is more swollen) Gastrointestinal: Normal bowel sounds, Soft and benign Musculoskeletal: No clubbing, No swelling Laboratory Data (last 24 hrs) 04/12/19 18:10: WBC 7.9, Hgb 12.5, Hct 37.8, Plt Count 202 04/12/19 18:10: PT 15.1 H, INR 1.29 04/12/19 18:10: Sodium 140, Potassium 3.8, BUN 21 H, Creatinine 1.44 H, Glucose 112 H, Magnesium 2.1, Total Bilirubin 0.7, AST 10 L, ALT 9 L, Alkaline Phosphatase 67 04/12/19 17:11: PT Cancelled, INR Cancelled 04/12/19 17:11: WBC Cancelled, Hgb Cancelled, Hct Cancelled, Plt Count Cancelled 04/12/19 17:11: Sodium Cancelled, Potassium Cancelled, BUN Cancelled, Creatinine Cancelled, Glucose Cancelled, Magnesium Cancelled, Total Bilirubin Cancelled, AST Cancelled, ALT Cancelled, Alkaline Phosphatase Cancelled - Problems (1) Pulmonary embolus Current Visit: Yes Status: Acute Plan: Patient is 68 years of age recently operated for of brain tumor is at chemo radiation admitted with acute shortness of breath and has DVT and a PE labs reviewed the patient is on heparin a recommend changing the to Lovenox thrombolytics therapy is contraindicated in view of recent surgery patient is hypotensive echocardiogram reviewed moderate pulmonary hypertension criteria for transfer to a tertiary care center for the extraction this will be persistent hypotension and hypoxemia patient's BNP is elevated probably from the right ventricular strain from her pulmonary embolism Qualifiers: Pulmonary embolism type: multiple subsegmental (without acute cor pulmonale) Qualified Code(s): I26.94 - Multiple subsegmental pulmonary emboli without acute cor pulmonale
[2019-04-13] MEDS: ENOXAPARIN 80 MG/0.8 ML SQ SCH ×2 (13:00→20:54)
[2019-04-13] MEDS ORDERED: ENOXAPARIN 80 MG/0.8 ML SQ ONE (13:16)
[2019-04-13] MEDS: FAMOTIDINE 20 MG TAB PO SCH (20:54)
[2019-04-13] MEDS: ZOLPIDEM TARTRATE 5 MG TABLET PO PRN (20:55)
[2019-04-13] MEDS ORDERED: ENOXAPARIN 80 MG/0.8 ML SQ SCH (21:00)
[2019-04-14 04:49] LABS: Absolute Lymphocytes (CBC) 0.7 K/uL (0.7-4.9); Basophils % 1.3 % (0-1.3); Hematocrit 31.7 % (36.0-45.0); Lymphocytes % 12.1 % (15.3-44.8); MPV 7.7 fL (7.6-11.3); RBC Red Blood Cell Count 3.44 M/uL (3.86-4.86)
[2019-04-14] MEDS: NA CHLORIDE 0.9% 1,000 ML IV SCH ×2 (04:58→08:39)
[2019-04-14 04:59] LABS: BUN Blood Urea Nitrogen 11 mg/dL (7-18); Bicarbonate 25 mmol/L (21-32); Glucose Level 101 mg/dL (74-106); Magnesium 1.9 mg/dL (1.8-2.4); Potassium 3.3 mmol/L (3.5-5.1); Sodium Level 144 mmol/L (136-145)
[2019-04-14] MEDS: ACETAMINOPHEN 500 MG TAB PO PRN ×2 (06:47→20:33)
[2019-04-14 07:24] LABS: NT PRO-BNP 3905 pg/mL (<125)
--- NOTE | 2019-04-14 07:55 | P.PN ---
Subjective Date of Service: 04/14/19 Primary Care Provider: Dr. Baker; Oncology-Dr. Cross/Rad.Onc-Dr. Souza([place]) Chief Complaint: Shortness of breath Subjective: Other (Patient stable this time. Transfer initiated last night but no beds available at [facility] [place]. Patient requiring 2 L per nasal cannula. She still desats whenever with exertion.) Physical Examination - Vital Signs Temperature: 97 F Blood Pressure: 111/92 Pulse: 97 Respirations: 23 Pulse Ox (%): 96 - Physical Exam General: Alert, In no apparent distress HEENT: Atraumatic Neck: Supple Respiratory: Clear to auscultation bilaterally Cardiovascular: Normal pulses, Regular rate/rhythm Gastrointestinal: Normal bowel sounds, Soft and benign, Non-distended Integumentary: No erythema, No warmth, No cyanosis Neurological: Normal speech, Normal strength at 5/5 x4 extr, Normal tone, Normal affect - Studies Medications List Reviewed: Yes Assessment & Plan Discharge Plan: Transfer Plan to discharge in: 24 Hours Physician Review Additional Text: Impression: Acute pulmonary emboli with extensive pulmonary embolic disease filling the majority of the right and left main artery and 5 lobar pulmonary arteries Hypotension likely related to above and acute renal injury Hypokalemia 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 Mild tricuspid regurgitation noted. Estimated right ventricular systolic pressure at 50. Case discussed with Pulmonology and Cardiology yesterday. After further review pulmonology recommends transfer to higher level care center due to extensive pulmonary embolic disease. Patient may require further intervention to remove clot. Transfer was initiated last night. No beds available. Will re-initiate again today. Patient has her specialists at [facility] [place], [place]. Will continue to reach out to [facility] for transfer. Continue to maintain adequate oxygenation with 2 L per nasal cannula. Replace electrolytes. Will recheck echocardiogram today to reassess right ventricular pressure. Patient stable at this time. Anticipate transfer to [facility] [place], [place] once bed available. Hypotension likely related to above and acute renal injury: Continue IV fluids. Blood pressures improved. Will monitor closely. Renal function has improved. Hypokalemia: Will monitor and replace appropriately. Replacement protocol in place. 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 CT scan reviewed. Patient was to have follow up with neurosurgeon/oncology soon. Home medications reviewed and restarted. Time Spent Managing Pts Care (In Minutes): 55
[2019-04-14] MEDS: ENOXAPARIN 80 MG/0.8 ML SQ SCH (08:38)
[2019-04-14] MEDS: FAMOTIDINE 20 MG TAB PO SCH ×2 (08:39→21:04)
[2019-04-14] MEDS ORDERED: POTASSIUM CL SA 10 MEQ TAB PO ONE (09:00)
--- NOTE | 2019-04-14 09:08 | P.HP ---
Certification for Inpatient Patient admitted to: Inpatient With expected LOS: >2 Midnights Patient will require the following post-hospital care: None Practitioner: I am a practitioner with admitting privileges, knowledge of patient current condition, hospital course, and medical plan of care. Services: Services provided to patient in accordance with Admission requirements found in Title 42 Section 412.3 of the Code of Federal Regulations Patient History Date of Service: 04/12/19 Reason for admission: Shortness of breath History of Present Illness: Patient is a 68-year-old female who came to the hospital with shortness of breath. Patient has a history of a malignant brain tumor that was biopsied. Patient has been getting radiation and chemotherapy. She has completed her treatments, and she had been doing well. She was scheduled to get a repeat MRI of the brain. Over the last couple of days she has noticed that she has been getting short of breath. She says she can walk 10 steps and she is fatigued and short winded. She decided to come into the emergency room for further evaluation. In the emergency room she was found to have a large pulmonary embolism. There was no evidence of RV strain but we will get a echocardiogram for further evaluation. Continue anticoagulation and admit to ICU. Allergies No Known Allergies Allergy (Unverified 02/06/19 02:49) Home Medications: Atorvastatin Calcium 20 mg PO BEDTIME 04/13/19 Eplerenone 50 mg PO BID 04/13/19 Ondansetron HCl [Zofran] 8 mg PO QID PRN 04/13/19 Spironolactone 50 mg PO DAILY 04/13/19 pindoloL [Pindolol] 5 mg PO BID 04/13/19 - Past Medical/Surgical History Has patient received pneumonia vaccine in the past: Yes Diabetic: No -: HTN -: HLD -: CVA -: TIA -: Dysphagia -: Malignent Neoplasm of Brain -: Cerebral Edema -: Hemiplegia and Hemiparesis (Left side) -: Acute Encephalopathy -: Brain Compression -: R side craniotomy 01/26/2019 - Family History Mother Medical History: Heart disease Father Medical History: Diabetes, Cancer Sister Medical History: Lung disease, Cancer - Social History Smoking Status: Unknown if ever smoked Alcohol use: Yes CD- Drugs: No Caffeine use: No Place of Residence: Home Review of Systems 10-point ROS is otherwise unremarkable Physical Examination - Vital Signs Temperature: 97 F Blood Pressure: 111/92 Pulse: 97 Respirations: 23 Pulse Ox (%): 96 - Physical Exam General: Alert, In no apparent distress, Oriented x3 HEENT: Atraumatic, PERRLA, Mucous membr. moist/pink, EOMI, Sclerae nonicteric Neck: Supple, 2+ carotid pulse no bruit, No LAD, Without JVD or thyroid abnormality Respiratory: Clear to auscultation bilaterally, Normal air movement Cardiovascular: Regular rate/rhythm, Normal S1 S2, No murmurs Gastrointestinal: Normal bowel sounds, Soft and benign, Non-distended, No tenderness Musculoskeletal: No clubbing, No swelling, No tenderness Integumentary: No rashes Neurological: Normal gait, Normal speech, Normal strength at 5/5 x4 extr, Normal tone, Sensation intact, Cranial nerves 3-12 intact, Normal affect Lymphatics: No axilla or inguinal lymphadenopathy Assessment & Plan - Problems (Diagnosis) (1) Malignant neoplasm of brain Current Visit: Yes Status: Acute (2) Hypotension Current Visit: Yes Status: Acute (3) DVT (deep venous thrombosis) Current Visit: Yes Status: Acute (4) Pulmonary embolus Current Visit: Yes Status: Acute Qualifiers: Pulmonary embolism type: multiple subsegmental (without acute cor pulmonale) Qualified Code(s): I26.94 - Multiple subsegmental pulmonary emboli without acute cor pulmonale - Plan PLAN: 1. ECHOCARDIOGRAM TO EVALUATE RV FUNCTION 2. ANTICOAGULATION WITH A HEPARIN DRIP 3. PULMONARY CONSULTATION 4. ADMITTED TO THE INTENSIVE CARE UNIT TO MONITOR HEMODYNAMICS CLOSELY 5. GI AND DVT PROPHYLAXIS Discharge Plan: Home Plan to discharge in: Greater than 2 days - Advance Directives Does patient have a Living Will: No Does patient have a Durable POA for Healthcare: No - Code Status/Comfort Care Code Status Assessed: Yes Code Status: Full Code Critical Care: Yes Time Spent Managing PTS Care (In Minutes): 50
--- NOTE | 2019-04-14 10:03 | ECHO ---
HEIGHT: 5 ft 6 in WEIGHT: 179 lb 0 oz DATE OF STUDY: 04/14/[address]: Amy Gonzalez MD 2-DIMENSIONAL: YES M.MODE: YES DOPPLER: YES COLOR FLOW: YES TDS: NO PORTABLE: YES DEFINITY: NO BUBBLE STUDY: NO DIAGNOSIS: RIGHT VENTRICULAR PRESSURE CARDIAC HISTORY: CATHERIZATION: NO SURGERY: NO PROSTHETIC VALVE: NO PACEMAKER: NO MEASUREMENTS (cm) DIASTOLIC (NORMALS) SYSTOLIC (NORMALS) IVSd 1.0 (0.6-1.2) LA Diam (1.9-4.0) LVEF 57% LVIDd 2.8 (3.5-5.7) LVIDs 2.0 (2.0-3.5) %FS 29% LVPWd 1.0 (0.6-1.2) Ao Diam 2.9 (2.0-3.7) 2 DIMENSIONAL ASSESSMENT: RIGHT ATRIUM: NORMAL LEFT ATRIUM: NORMAL RIGHT VENTRICLE: NORMAL LEFT VENTRICLE: NORMAL TRICUSPID VALVE: NORMAL MITRAL VALVE: NORMAL PULMONIC VALVE: NORMAL AORTIC VALVE: NORMAL PERICARDIAL EFFUSION: NONE AORTIC ROOT: NORMAL LEFT VENTRICULAR WALL MOTION: PARADOXICAL SEPTAL MOTION. DOPPLER/COLOR FLOW: MODERATE TRICUSPID REGURGITATION . ESTIMATED RIGHT VENTRICULAR SYSOTLIC PRESSURE 75 mmHg, MARKEDLY INCREASED SINCE 04-13-2019. COMMENTS: NORMAL LEFT VENTRICULAR EJECTION FRACTION. PARADOXICAL SEPTAL MOTION. MARKEDLY ELEVATED RIGHT VENTRICULAR SYSTOLIC PRESSURE, WORSE SINCE 04-13-2019. MODERATE TRICUSPID REGURGITATION. TECHNOLOGIST: Becki NOVA
--- NOTE | 2019-04-14 12:02 | P.PN ---
Subjective Date of Service: 04/14/19 Primary Care Provider: Dr. Baker; Oncology-Dr. Cross/Rad.Onc-Dr. Souza([place]) Chief Complaint: Pulmonary embolism Subjective: Improving (Patient is improving shortness of breath has not has improved patient denies any head chest pain she has dyspnea on minimal exertion) Review of Systems General: Weakness Respiratory: Shortness of Breath Physical Examination - Vital Signs Temperature: 97 F Blood Pressure: 107/78 Pulse: 100 Respirations: 20 Pulse Ox (%): 99 - Physical Exam General: Alert, In no apparent distress, Oriented x3 Respiratory: Clear to auscultation bilaterally Cardiovascular: No edema, Regular rate/rhythm, Normal S1 S2 - Studies Medications List Reviewed: Yes Assessment & Plan - Problems (Diagnosis) (1) Pulmonary embolus Current Visit: Yes Status: Acute Plan: Patient admitted with pulmonary embolism appears to be severe with severe pulmonary hypertension significant hypoxemia shortness of breath the pressure is now stable Dc IV fluids patient's BNP is elevated suggestive of cor pulmonale rosenda lytic therapy is a contraindication due to recent surgery recommend transfer as soon as possible to a tertiary care hospital for clot extraction mildly anemic hemodynamically stable to be transferred Qualifiers: Pulmonary embolism type: multiple subsegmental (without acute cor pulmonale) Qualified Code(s): I26.94 - Multiple subsegmental pulmonary emboli without acute cor pulmonale Physician Review Additional Text: I
[2019-04-14] MEDS ORDERED: ENOXAPARIN 80 MG/0.8 ML SQ SCH (21:00)
[2019-04-14] MEDS: ZOLPIDEM TARTRATE 5 MG TABLET PO PRN (21:04)
[2019-04-15 05:02] LABS: Absolute Lymphocytes (CBC) 0.7 K/uL (0.7-4.9); Basophils % 0.9 % (0-1.3); Hematocrit 32.1 % (36.0-45.0); Lymphocytes % 13.9 % (15.3-44.8); MPV 8.3 fL (7.6-11.3)
[2019-04-15 05:15] LABS: Magnesium 1.8 mg/dL (1.8-2.4); Potassium 3.5 mmol/L (3.5-5.1)
[2019-04-15 05:51] VITALS: BMI 28.7
[2019-04-15] MEDS ORDERED: POTASSIUM CL SA 10 MEQ TAB PO ONE (06:30)
[2019-04-15] MEDS ORDERED: MAGNESIUM SULFATE 1 gm IVPB 1 GM/100 ML BAG IV ONE (06:30)
--- NOTE | 2019-04-15 08:12 | P.DS ---
Admission Date: 04/12/19 Discharge Date: 04/15/19 Primary Care Provider: Dr. Baker; Oncology-Dr. Cross/Rad.Onc-Dr. Souza([place]) Disposition: TRANSFER TO [facility] Discharge Condition: GOOD Reason for Admission: Pulmonary embolism Consultations: Pulmonary-Dr. Philip Procedures: CT chest: FINDINGS: A large pulmonary embolus is present arising in the main pulmonary vein and extending into the left pulmonary vein. This enlarges the vein. Embolic disease fills the left upper lobe and left lower lobe pulmonary arteries. There is segmental branch extension in the left upper and left lower lobes. No left-sided pulmonary hemorrhage changes are identified. There is a large amount of pulmonary embolic disease filling the right pulmonary artery extending into the right upper lobe and right lower lobe pulmonary arteries. Segmental branch pulmonary embolic disease noted on the right lower lobe. No saddle embolus. Pulmonary arteries are enlarged. No right-sided pulmonary hemorrhage. The aorta as imaged shows no acute or suspicious finding. No pericardial thickening or effusion. No infiltrate or mass in the lung parenchyma. No pleural effusion or pleural thickening. No mediastinal or hilar suspicious masses. No chest wall masses or abnormal axillary lymphadenopathy. IMPRESSION: Very extensive pulmonary embolic disease filling the majority of the each right and left main pulmonary artery and filling the 5 lobar pulmonary arteries. Segmental branch embolic disease is present as well. No pulmonary hemorrhage or acute lung parenchymal process. CT Head: FINDINGS: No intracranial hemorrhage present. No acute cortical based infarction identifiable. Postsurgical changes are present to the right-side frontal and temporal bones. There is a large area of CSF attenuation in the right middle cranial fossa from prior resection of portions of the temporal lobe. There is decreased attenuation that extends posteriorly along the posterior margin of the thalamus. This is probably all part of the same postsurgical change. No comparison is available. The patient has extensive cerebral white matter disease that may be from chronic ischemic change or possibly from radiation if performed. No significant volume loss overall. Ventricles are normal. No acute cortical edema or sulcal effacement. Mastoid air cells and visualized portions of the paranasal sinuses are clear. No acute bony findings. IMPRESSION: Postsurgical changes involving the right temporal lobe from tumor resection. Surrounding brain parenchymal hypo density is probably part of the surgical process. No comparison is available. Extensive cerebral white matter disease from chronic ischemic change or possibly from radiation therapy if performed. No intracranial hemorrhage is present. No acute cortical based infarction. ECHO: Ejection fraction 62% LEFT VENTRICULAR WALL MOTION: NORMAL DOPPLER/COLOR FLOW: MILD TRICUSPID REGURGITATION. ESTIMATED RIGHT VENTRICULAR SYSTOLIC PRESSURE 50 mmHg (MODERATE PULMONARY HYPERTENSION). COMMENTS: NORMAL LEFT VENTRICULAR EJECTION FRACTION. MILD TRICUSPID REGURGITATION. MODERATE PULMONARY HYPERTENSION. Follow up ECHO: Ejection fraction 57% LEFT VENTRICULAR WALL MOTION: PARADOXICAL SEPTAL MOTION. DOPPLER/COLOR FLOW: MODERATE TRICUSPID REGURGITATION . ESTIMATED RIGHT VENTRICULAR SYSOTLIC PRESSURE 75 mmHg, MARKEDLY INCREASED SINCE 04-13-2019. COMMENTS: NORMAL LEFT VENTRICULAR EJECTION FRACTION. PARADOXICAL SEPTAL MOTION. MARKEDLY ELEVATED RIGHT VENTRICULAR SYSTOLIC PRESSURE, WORSE SINCE 2019. MODERATE TRICUSPID REGURGITATION. 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 Patient with prior history of brain cancer removed January 2019. She had been scheduled to follow up with oncology recently. Patient was sent to the ER for further evaluation. Patient found to have extensive pulmonary emboli. Patient was admitted for further evaluation and treatment. Hospital Course: Patient presented with shortness of breast secondary to acute pulmonary emboli with extensive pulmonary embolic disease. Disease affected the majority of the right and left main artery and 5 lobar pulmonary arteries. The patient was admitted to ICU for further evaluation and treatment. Pulmonology was consulted. Patient was not a candidate for tPA due to history of brain tumor removed from the right temporal region in January of 2019. Patient was started on anti coagulation therapy. Patient had some hypotension in the emergency room. She was stabilize. Patient continued to have some desaturations with movement. Repeat ultrasound showed worsening pulmonary hypertension with markedly elevated right ventricular systolic pressure indicating strain. Due to her findings pulmonology recommended the patient be transferred to a higher level care center for evaluation of possible clot extraction by interventional radiology for cardiovascular surgery. Patient has been accepted to [facility] for high-level of care treatment. Patient will be transferred to continue management. Case discussed with hospitalist. Patient will be reassessed and evaluated. Patient may require further intervention. Otherwise patient remains on 3 L per nasal cannula. Blood pressure stable at this time. 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 Surgery was done in January 2019. She is had radiation and chemotherapy. Her oncologist is through the [facility] system. Patient with history of hypertension and hyperlipidemia. Due to her low blood pressure and current condition, hypertensive medications have been held. Her cholesterol medication currently on hold at this time. Vital Signs/Physical Exam: Temp Pulse Resp BP Pulse Ox 97.5 F 95 H 23 H 117/95 H 99 04/15/19 04:00 04/15/19 06:00 04/15/19 06:00 04/15/19 06:00 04/15/19 06:00 General: Alert, In no apparent distress, Oriented x3, Cooperative HEENT: Atraumatic Neck: Supple Respiratory: Clear to auscultation bilaterally, Normal air movement Cardiovascular: Normal pulses, Regular rate/rhythm Gastrointestinal: Normal bowel sounds, Soft and benign, Non-distended Musculoskeletal: No erythema, No tenderness, No warmth Integumentary: No tenderness/swelling, No erythema, No warmth, No cyanosis Neurological: Normal speech, Normal strength at 5/5 x4 extr, Normal tone, Normal affect Laboratory Data at Discharge: WBC 5.1 K/uL (4.3-10.9) 04/15/19 04:32 Hgb 10.6 g/dL (12.0-15.0) L 04/15/19 04:32 Hct 32.1 % (36.0-45.0) L 04/15/19 04:32 Plt Count 177 K/uL (152-406) 04/15/19 04:32 PT 15.1 SECONDS (9.5-12.5) H 04/12/19 18:10 INR 1.29 04/12/19 18:10 APTT 57.2 SECONDS (24.3-36.9) H 04/13/19 08:11 Sodium 143 mmol/L (136-145) 04/15/19 04:38 Potassium 3.5 mmol/L (3.5-5.1) 04/15/19 04:38 BUN 8 mg/dL (7-18) 04/15/19 04:38 Creatinine 0.67 mg/dL (0.55-1.3) 04/15/19 04:38 Glucose 98 mg/dL (74-106) 04/15/19 04:38 Phosphorus 3.4 mg/dL (2.5-4.9) 04/13/19 04:20 Magnesium 1.8 mg/dL (1.8-2.4) 04/15/19 04:38 Total Bilirubin 0.5 mg/dL (0.2-1.0) 04/13/19 04:20 AST 10 U/L (15-37) L 04/13/19 04:20 ALT 9 U/L (12-78) L 04/13/19 04:20 Alkaline Phosphatase 58 U/L (45-117) 04/13/19 04:20 Troponin I 0.02 ng/mL (0.0-0.045) 04/13/19 04:20 Triglycerides 117 mg/dL (<150) 04/13/19 04:20 Cholesterol 96 mg/dL (<200) 04/13/19 04:20 HDL Cholesterol 34 mg/dL (40-60) L 04/13/19 04:20 Cholesterol/HDL Ratio 2.82 04/13/19 04:20 Home Medications: Atorvastatin Calcium 20 mg PO BEDTIME 04/13/19 Eplerenone 50 mg PO BID 04/13/19 Ondansetron HCl [Zofran] 8 mg PO QID PRN 04/13/19 Spironolactone 50 mg PO DAILY 04/13/19 pindoloL [Pindolol] 5 mg PO BID 04/13/19 Patient Discharge Instructions: Patient will be transferred to [facility] for further evaluation of her extensive pulmonary embolic disease. Diet: AHA Activity: Bedrest Time spent managing pt's care (in minutes): 55
[2019-04-15 08:29] VITALS: O2SAT 95
[2019-04-15 08:40] VITALS: BP 129/81; TEMP 97.4
== END 2019-04-15 08:30 | disposition short-term general hospital (02) | DRG 176 ==
LOC: ER 17:01 → ERHOLD 19:37 → 3RD-ICU 21:09 → ERHOLD 22:12 → 3RD-ICU 04-13 14:59
PROVIDERS: ADMIT Hospitalist; ATTEND Family Medicine
DX: I26.94 Multiple subsegmental thrombotic pulmonary emboli without acute cor pulmonale (principal); N17.9 Acute kidney failure, unspecified; C71.9 Malignant neoplasm of brain, unspecified; I69.954 Hemiplegia and hemiparesis following unspecified cerebrovascular disease affecting left non-dominant side; E87.6 Hypokalemia; I10 Essential (primary) hypertension; I95.9 Hypotension, unspecified; E78.5 Hyperlipidemia, unspecified
CPT/HCPCS: 36415; 70450; 71045; 71275; 80048; 80053; 80061; 80076; 83605; 83735; 83880; 84100; 84484; 85025; 85610; 85730; 93005; 93306; 96361; 96365; 96375; 99285; J1644; J1650; J3475; J7030; Q9967

== ENCOUNTER 2019-07-29 11:14 | Emergency (ER) | payer BC, SELFPAY ==
--- OUTSIDE RECORDS SUMMARY | 2019-07-29 12:24 | XMS REPORT | Clinical Summary ---
:1950 Author Organization [facility] Address [address] [place] [address] Care Team Providers Name Role Phone Krish Baker MD Primary Care Provider Allergies No Known Allergies Medications Medication Sig Dispensed Refills Start Date End Date Status atorvastatin Take 20 mg by 0 Act elena (LIPITOR) 20 MG mouth daily. tabletIndications: hypercholesterolemia , hyperlipidemia pindolol (VISKEN) 5 Take 1 tablet 0 04/27/2019 Active MG (5 mg total) tabletIndications: by mouth 2 hypertension (two) times daily. pindolol (VISKEN) 5 Take 5 mg by 0 020 Discontinued MG mouth 2 (two) tabletIndications: times daily. hypertension spironolactone Take 50 mg by 0 04/20/2019 Discontinued (ALDACTONE) 50 MG mouth daily tabletIndications: With food . hypertension apixaban (ELIQUIS) 5 Take 2 8 tablet 0 04/20/2019 04/22/19 20 mg Tab tablet tablets (10 mg total) by mouth 2 (two) times daily for 2 days. apixaban (ELIQUIS) 5 Take 1 tablet 60 tablet 0 04/23/2019/2 04/2019 mg Tab tablet (5 mg total) by mouth 2 (two) times daily for 30 days. furosemide (LASIX) Take 1 tablet 4 tablet 0 04/21/20192019 20 MG tablet (20 mg total) by mouth every other day for 8 days. ejic-xzkrofxafegsm-h Take 1 tablet 30 tablet 0 04/21/2019/2 inerals by mouth (THERAGRAN-M) 9 mg daily for 30 iron-400 mcg Tab days. tablet famotidine (PEPCID) Take 1 tablet 60 tablet 0 04/20/201905/19 20 MG tablet (20 mg total) by mouth 2 (two) times daily for 30 days. Active Problems Problem Noted Date Acute saddle pulmonary embolism with acute cor pulmona le 04/15/2019 Acute hypoxemic respiratory failure 04/15/2019 Brain cancer 04/15/2019 Overview: s/p craniotomy 01/2019 and chemo/XRT (co mpleted 03/2019) Encounters Date Type Specialty Care Team Description 04/18/2019 Travel 04/15/2019 Surgery Maya Briscoe MD THROMBOLY SIS ARTERIAL - INITIAL DAY * *MCR - IP PROC ONLY 04/15/2019 - Hospital Encounter Cardiology Lucille Sparrow MD Acute hypoxemic respiratory failure (HCC ); 04/20/2019 Melissa Oquendo Other acute pulmonary embolism with acut e cor pulmonale (HCC); Cori Aponte MD Malignant neoplasm of brain, unspecified location (HCC); Malignant neopl asm of cerebrum, except lobes and ventricles (HCC); Acute saddle pu lmonary embolism with acute cor pulmonale (HCC) after 07/28/2018 Social History Tobacco Use Types Packs/Day Years Used Date Never Smoker Smokeless Tobacco: Never Used Comments: years ago since she was in [employer] school Alcohol Use Drinks/Week oz/Week Comments No occasionally Alcohol Habits Answer Date Recorded How often do you have a drink containing alcohol? Never 04/15/2019 How many drinks containing alcohol do you have on a typical Not asked day when you are drinking? How often do you have six or more drinks on one occasion? No t asked Sex Assigned at Date Recorded Not on file Job Start Date Occupation Industry Not on file Not on file Not on file Travel History Travel Start Travel End No recent travel history available. Last Filed Vital Signs Vital Sign Reading Time Taken Blood Pressure 110/61 04/20/2019 11:05 AM [employer] OF AC[employer]IC Pulse 90 04/20/2019 11:05 AM [employer] OF [employer] Temperature 36.7 C (98 F) 04/20/2019 11:05 AM [employer] OF AC[employer]IC Respiratory Rate 18 04/20/2019 11:05 AM [employer] OF ACADEMIC Oxygen Saturation 96% 04/20/2019 11:05 AM [employer] OF ACADEMIC Inhaled Oxygen Concentration 28% 04/19/2019 8:14 PM [employer] OF ACAD[employer]IC Weight 76.7 kg (169 lb) 04/20/2019 7:40 AM [employer] OF ACADEMIC Height 167.6 cm (5' 6") 04/15/2019 10:00 AM [employer] OF ACADEMIC Body Mass Index 27.28 04/20/2019 7:40 AM [employer]OR OF ACADEMIC Plan of Treatment Not on file Procedures Procedure Name Priority Date/Time Associated Comments Diagnosis CARDIAC CATH REPORT - 04/22/2019 10:50 SCAN AM [employer] OF ACAD[employer]IC RHYTHM STRIP - SCAN 04/22/2019 10:50 AM [employer]OR OF ACADEMIC CBC W/PLT COUNT & AUTO Routine 04/20/2019 4:25 R esults for this DIFFERENTIAL AM [employer]IC procedure are i n the results section. PT/APTT Routine 04/20/2019 4:25 Results for this AM [employer] procedure are i n the results section. PHOSPHORUS Routine 04/20/2019 4:25 Results for this AM [employer] procedure are i n the results section. MAGNESIUM Routine 04/20/2019 4:25 Results for this AM [employer] procedure are i n the results section. HEPATIC FUNCTION PANEL Routine 04/20/2019 4:25 R esults for this AM [employer] procedure are i n the results section. CBC W/PLT COUNT & AUTO Routine 04/20/2019 4:25 R esults for this DIFFERENTIAL AM [employer] procedure are i n the results section. BASIC METABOLIC PANEL Routine 04/20/2019 4:25 Re sults for this (7) AM [employer]IC procedure are i n the results section. CBC W/PLT COUNT & AUTO Routine 04/19/2019 4:38 R esults for this DIFFERENTIAL AM [employer]IC procedure are i n the results section. PT/APTT Routine 04/19/2019 4:38 Results for this AM [employer]IC procedure are i n the results section. PHOSPHORUS Routine 04/19/2019 4:38 Results for this AM [employer]IC procedure are i n the results section. MAGNESIUM Routine 04/19/2019 4:38 Results for this AM [employer]IC procedure are i n the results section. HEPATIC FUNCTION PANEL Routine 04/19/2019 4:38 R esults for this AM [employer]IC procedure are i n the results section. CBC W/PLT COUNT & AUTO Routine 04/19/2019 4:38 R esults for this DIFFERENTIAL AM [employer] procedure are i n the results section. BASIC METABOLIC PANEL Routine 04/19/2019 4:38 Re sults for this (7) AM [employer] procedure are i n the results section. XR CHEST 1 VIEW Routine 04/19/2019 1:50 Results for this PORTABLE/BEDSIDE AM [employer] procedure a re in the results section. CBC W/PLT COUNT & AUTO Routine 04/18/2019 5:24 R esults for this DIFFERENTIAL AM [employer] procedure are i n the results section. PT/APTT Routine 04/18/2019 5:24 Results for this AM [employer] procedure are i n the results section. PHOSPHORUS Routine 04/18/2019 5:24 Results for this AM [employer] procedure are i n the results section. MAGNESIUM Routine 04/18/2019 5:24 Results for this AM [employer] procedure are i n the results section. HEPATIC FUNCTION PANEL Routine 04/18/2019 5:24 R esults for this AM [employer] procedure are i n the results section. CBC W/PLT COUNT & AUTO Routine 04/18/2019 5:24 R esults for this DIFFERENTIAL AM [employer] procedure are i n the results section. BASIC METABOLIC PANEL Routine 04/18/2019 5:24 Re sults for this (7) AM [employer] procedure are i n the results section. POCT-GLUCOSE METER Routine 04/17/2019 3:55 Resul ts for this PM [employer] procedure are i n the results section. POCT-GLUCOSE METER Routine 04/17/2019 7:39 Resul ts for this AM [employer] procedure are i n the results section. CBC W/PLT COUNT & AUTO Routine 04/17/2019 5:36 R esults for this DIFFERENTIAL AM [employer] procedure are i n the results section. PT/APTT Routine 04/17/2019 5:36 Results for this AM [employer] procedure are i n the results section. PHOSPHORUS Routine 04/17/2019 5:36 Results for this AM [employer] procedure are i n the results section. MAGNESIUM Routine 04/17/2019 5:36 Results for this AM [employer] procedure are i n the results section. HEPATIC FUNCTION PANEL Routine 04/17/2019 5:36 R esults for this AM [employer] procedure are i n the results section. CBC W/PLT COUNT & AUTO Routine 04/17/2019 5:36 R esults for this DIFFERENTIAL AM [employer] procedure are i n the results section. BASIC METABOLIC PANEL Routine 04/17/2019 5:36 Re sults for this (7) AM [employer] procedure are i n the results section. POCT-GLUCOSE METER Routine 04/16/2019 9:30 Resul ts for this PM [employer] procedure are i n the results section. ECHOCARDIOGRAM REPORT - 04/16/2019 9:23 SCAN PM [employer] AC[employer]IC TRANSFUSION SERVICE 04/16/2019 5:53 REPORT - SCAN PM [employer]IC CBC W/PLT COUNT & AUTO Routine 04/16/2019 6:00 R esults for this DIFFERENTIAL AM [employer] procedure are i n the results section. PT/APTT Routine 04/16/2019 6:00 Results for this AM [employer] procedure are i n the results section. PHOSPHORUS Routine 04/16/2019 6:00 Results for this AM [employer] procedure are i n the results section. MAGNESIUM Routine 04/16/2019 6:00 Results for this AM [employer] procedure are i n the results section. HEPATIC FUNCTION PANEL Routine 04/16/2019 6:00 R esults for this AM [employer] procedure are i n the results section. CBC W/PLT COUNT & AUTO Routine 04/16/2019 6:00 R esults for this DIFFERENTIAL AM [employer] procedure are i n the results section. BASIC METABOLIC PANEL Routine 04/16/2019 6:00 Re sults for this (7) AM [employer] procedure are i n the results section. 2D ECHO W/ DOPPLER STAT 04/15/2019 5:54 Resul ts for this (CW/PW/COLOR) PM [employer] procedure are in the results section. PREPARE LEUKO-REDUCED STAT 04/15/2019 5:37 Re sults for this RBC PM [employer] procedure are i n the results section. POCT-ACT Routine 04/15/2019 4:51 Results for this PM [employer] procedure are i n the results section. THROMBOLYSIS ARTERIAL - 04/15/2019 4:18 Personal hist ory INITIAL DAY MCR - IP PM [employer] of lung thrombosis PROC ONLY ABORH, MANUAL STAT 04/15/2019 11:50 Results fo r this AM [employer] procedure are i n the results section. TYPE AND SCREEN, Routine 04/15/2019 11:07 Results for this AUTOMATED AM [employer] procedure are i n the results section. CBC W/PLT COUNT & AUTO STAT 04/15/2019 10:52 R esults for this DIFFERENTIAL AM [employer] procedure are i n the results section. PT/APTT STAT 04/15/2019 10:52 Results for this AM [employer] procedure are i n the results section. B-TYPE NATRIURETIC STAT 04/15/2019 10:52 Resul ts for this FACTOR (BNP) AM [employer]IC procedure are i n the results section. TROPONIN I STAT 04/15/2019 10:52 Results for this AM [employer]IC procedure are i n the results section. PHOSPHORUS STAT 04/15/2019 10:52 Results for this AM [employer] procedure are i n the results section. MAGNESIUM STAT 04/15/2019 10:52 Results for this AM [employer] procedure are i n the results section. COMPREHENSIVE METABOLIC STAT 04/15/2019 10:52 Results for this PANEL AM [employer] procedure are i n the results section. CBC W/PLT COUNT & AUTO STAT 04/15/2019 10:52 R esults for this DIFFERENTIAL AM [employer] procedure are i n the results section. after 07/28/2018 Results CARDIAC CATH REPORT - SCAN (04/22/2019 10:50 AM [employer]OR OF ACADEMIC) Narrative Performed At This result has an attachment that is no t available. RHYTHM STRIP - SCAN (04/22/2019 10:50 AM [employer]OR OF ACADEMIC) Narrative Performed At This result has an attachment that is no t available. PT/aPTT (04/20/2019 4:25 AM DIRECTOR OF ACADEMIC)Only the most recent of6 resultswithin the time period is included. Protime 19.0 (H) 11.9 - 14.[address] [facility] INR 1.6 <=5.9 [facility] PTT 36.9 (H) 22.5 - 36.[address] [facility] Specimen Blood Narrative Performed At Effective 07/29/2018: PT Reference Range [facility] Change New: 11.9-14.2Previous: 11.7-14.7 RECOMMENDED COUMADIN/WARFARIN INR THERAPY RANGES STANDARD DOSE: 2.0-3.0Includes: PROPHYLAXIS for venous thrombosis, systemic embolization; TREATMENT for venous thrombosis and/or pulmonary embolus. HIGH RISK: Target INR is 2.5-3.5 for patients wiht mechanical heart valves. Performing Organization Address City/State/Zipcode Phone Number [facility] [address] [place] [address] CENTER CBC with platelet count + automated diff (04/20/2019 4:25 AM DIRECTOR OF ACADEMIC)Only the most recent of6 resultswithin the time period is included. WBC 5.9 3.5 - 10.5 K/L [facility] RBC 3.33 (L) 3.93 - 5.22 M/L [facility] Hemoglobin 9.9 (L) 11.2 - 15.7 GM/DL [facility] Hematocrit 31.7 (L) 34.1 - 44.9 % [facility] MCV 95.2 (H) 79.4 - 94.[address] [facility] MCH 29.7 25.6 - 32.2 pg [facility] MCHC 31.2 (L) 32.2 - 35.5 GM/DL [facility] RDW 14.0 11.7 - 14.4 % [facility] Platelets 181 150 - 450 K/CU MM [facility] MPV 9.3 (L) 9.4 - 12.3 fL [facility] nRBC 0 0 - 0 /100 WBC [facility] % Neutros 74 % [facility] % Lymphs 12 % [facility] % Monos 8 % [facility] % Eos 5 % [facility] % Baso 1 % [facility] # Neutros 4.34 1.56 - 6.13 K/L [facility] # Lymphs 0.69 (L) 1.18 - 3.74 K/L [facility] # Monos 0.47 (H) 0.24 - 0.36 K/L [facility] # Eos 0.31 0.04 - 0.36 K/L [facility] # Baso 0.04 0.01 - 0.08 K/L [facility] Immature Granulocytes-Relative 0 0 - 1 % C [facility] Specimen Blood Performing Organization Address City/State/Zipcode Phone Number [address] [address] CENTER Phosphorus (04/20/2019 4:25 AM [employer]OR OF ACADEMIC)Only the most recent of6 resultswithin the time period is included. Phosphorus 3.4 2.3 - 4.7 mg/dL [facility] Specimen Blood Narrative Performed At Clinical Account Liaison ID - [facility] Performing Organization Address City/[facility] Phone Number [address] [address] CENTER Magnesium (04/20/2019 4:25 AM DIRECTOR OF ACADEMIC)Only the most recent of6 resultswithin the time period is included. Magnesium 2.0 1.6 - 2.6 mg/dL [facility] Specimen Blood Narrative Performed At Clinical Account Liaison ID - [facility] Performing Organization Address [facility] Ranch[facility] Phone Number [address] [address] [place] Hepatic function panel (04/20/2019 4:25 AM DIRECTOR OF ACADEMIC)Only the most recent of5 results within the time period is included. Protein, Total 6.1 6.0 - 8.3 gm/dL [facility] Albumin 3.2 (L) 3.5 - 5.0 g/dL [facility] Total Bilirubin 0.5 0.2 - 1.2 mg/dL [facility] Bilirubin, Direct 0.3 0.1 - 0.5 mg/dL [facility] Alkaline Phosphatase 65 40 - 150 U/L [facility] AST 12 5 - 34 U/L [facility] ALT 20 6 - 55 U/L [facility] Specimen Blood Narrative Performed At Clinical Account Liaison [facility] Performing Organization Address [facility]/Zipcode Phone Number [facility] [address], [place] [phone] [place] Basic metabolic panel (04/20/2019 4:25 AM [employer]OR OF ACADEMIC)Only the most recent of5 results within the time period is included. Sodium 139 136 - 145 meq/L [facility] Potassium 3.6 3.5 - 5.1 meq/L [facility] Chloride 103 98 - 107 meq/L [facility] CO2 29 22 - 29 meq/L [facility] BUN 8 7 - 21 mg/dL [facility] Creatinine 0.66 0.57 - 1.25 mg/dL [facility] Glucose 112 (H) 70 - 105 mg/dL [facility] Calcium 8.9 8.4 - 10.2 mg/dL [facility] EGFR 90Comment: ESTIMATED GFR IS mL/min/1.73 sq m [facility] NOT ACCURATE CREATININE [facility] CLEARANCE IN PREDICTING GLOMERULAR FILTRATION RATE. ESTIMATED GFR IS NOT APPLICABLE FOR DIALYSIS PATIENTS. Specimen Blood Narrative Performed At Clinical Account Liaison ID - MADHU Miguel [facility] Performing Organization Address [facility]/Zipcode Phone Number [facility] [address], [place] [phone] [place] XR chest 1 view portable / bedside (04/19/2019 1:50 AM DIRECTOR OF ACADEMIC) Specimen Narrative Performed At FINAL REPORT [facility] History: Hypoxemia. Comparison: None. Findings: A single view of the chest is submitted. The cardiac silhouette is within normal limits for size. There is atherosclerotic calcification of an ecta tic aorta. The right hemidiaphragm is elevated. Pat sapna perihilar opacity in the right perihilar lung may relate to adjac ent atelectasisthough pneumonitis should be excluded clinicall y. A right perihilar lesion or adenopathy cannot be excluded with po stcontrast CT chest is old examinations are not available elsewhere to demonstrate stability over time. There is no pneumothorax, large pleural effusion, evidence of overt pulmonary edema or acute bony abnormalit y. Signed: Iain Walter MD Report Verified Date/Time:04/19/2019 02:42:27 Procedure Note Interface, External Ris In - 04/19/2019 2:44 AM [employer] OF ACADEMIC FINAL REPORT History: Hypoxemia. Comparison: None. Findings: A single view of the chest is submitted. The cardiac silhouette is within normal limits for size. There is atherosclerotic calcification of an ecta tic aorta. The right hemidiaphragm is elevated. Pat sapna perihilar opacity in the right perihilar lung may relate to adjac ent atelectasis though pneumonitis should be excluded clinicall y. A right perihilar lesion or adenopathy cannot be excluded with po stcontrast CT chest is old examinations are not available elsewhere to demonstrate stability over time. There is no pneumothorax, large pleural effusion, evidence of overt pulmonary edema or acute bony abnormalit y. Signed: Iain Walter MD Report Verified Date/Time: 04/19/2019 0 2:42:27 Performing Organization Address City/[facility] Phone Number [facility] POC-Glucose meter (04/17/2019 3:55 PM [employer] OF ACADEMIC)Only the most recent of3 results within the time period is included. POC-Glucose Meter 116 (H)Comment: : TESTED 70 - 110 mg/dL [facility] [employer] [place] [facility] AT [address], [address]: Clinical Account Liaison/Security Assistant ID = [id number] for JOSE AMBRIZ Specimen Blood Performing Organization Address City/[facility]/Zipcode Phone Number [facility]istat[facility] [address] [place] [phone] CENTER ECHOCARDIOGRAM REPORT - SCAN (04/16/2019 9:23 PM [employer]OR OF ACADEMIC) Narrative Performed At This result has an attachment that is no t available. TRANSFUSION SERVICE REPORT - SCAN (04/16/2019 5:53 PM [employer]OR OF ACADEMIC) Narrative Performed At This result has an attachment that is no t available. 2D Echo W/Doppler(CW/PW/Color) (04/15/2019 5:54 PM [employer]OR OF ACADEMIC) Ejection Fraction [facility] ECHO HEAR TLAB [facility] Specimen Narrative Performed At Transthoracic Echocardiography Report (T TE) [facility] ECHO HEARTLAB [facility] Demographics Patient Name YAMILKA GLORIA Date of Study 04/15/2019 [id number] Gender Female Visit Number [id number] Unknown [id number] Room Number 7106 Number Date of Birth1950Referring Physician Age68 year(s)Zoo Caretaker Sarah Brownlee [facility] Interpreting Physician JJ Peña Fellow Giovani delgado MD Procedure Type of Study TTE procedure:2DECHO W DOPPLER(CW/PW/COLOR) (STAT) Indications:Respiratory failure or hypoxemia , Concern for Pulm Emboli and RV Function evaluation. Clinical History Brain cancer. Contrast Medium: Bubble Study. Height: 66 inches Weight: 79.83 kg (176 lbs) BSA: 1.89 m^2 BMI: 28.41 kg/m^2 HR: 96 bpm BP: 132/101 mmHg Summary 1. Normal overall left ventricular systolic function (EF 55-59% by Rios's method). No apparent segmental wall motion abnormalities. 2. Diastology: Tachycardia precludes diastology assessment. 3. RV is severely enlarged. RV function is reduced 4. No significant valvular heart diseas e 5. Mild TR. Estimated PASP is 45-50 mm Hg 6. A trivial pericardial effusion is pr esent . 7. There is no evidence of right to left shunting after the injection of agitated saline Previous Study No prior studies available for comparis on. Signature Findings Rhythm/BPExam limited by sinus tachycardia. Left Ventricle The left ventricle is chamber size (by PSLAX di mension) is small (female - LVIDd < 3.8c m). Mo derate asymmetric LVH noted.. Normal ove rall left ve ntricular systolic function (EF 55-59% b y Si mpson's method). No apparent segmental w all mo tion abnormalities. Abnormal septal wall motion. Ta chycardia precludes diastology assessmen t. Left AtriumLA size is normal . Right VentricleRV is severely enlarged.RV function is reduced. Right Atrium RA size is severely dilated. Atrial SeptumNormal interatrial septum by available views. Th ere is no evidence of right to left shun ting af ter the injection of agitated saline Aortic Valve Normal AoV structure and function. Mitral Valve Normal MV structure and function. Tricuspid ValveMild tricuspid regurgitation. Es timated peak systolic PA pressure is 45- 50 mmHg. Pulmonic Valve Normal PV structure appears normal by available vi ews. Pulmonary artery is not well-visual ized. PericardiumA trivial pericardial effusion is present . Ec hodensities are noted in the pericardial space. IVC/SVC/PA/PV/PleuralThe estimated RA pressure by IVC dynamics 11-15mmHg . Chambers/Structures Left Atrium LA Volume: 45.51 ml LA Vol. Index: 24 ml/m^2 Left Ventricle LVIDd: 3.36 cm LVEDV:46.02 ml LVIDs: 2.65 cm LVESV:18.54 ml LV Septum Diastolic: 1.36 cmLVEF 2D Cube: 51 % LV PW Diastolic: 1.15 cm LV FS: 21.1 % LVEF: 59.7 % Doppler/Quantitative Measurements Mitral Valve MR Velocity: 3.68 m/s MR VTI: 106.84 cm MV Stu. Peak: Aortic Valve Peak Velocity: 1.05 m/sMean Velocity: 0.61 m/s Peak Gradient: 4.38 mmHg Mean Gradient: 1.79 mmHg AV VTI: 11.44 cm AV DVI: 0.79 LVOT Peak Velocity: 0.77 m/s Peak Gradient: 2.34 mmHg Mean Velocity: 0.44 m/s Mean Gradient: 0.94 mmHg LVOT VTI: 8.99 cm Tricuspid Valve TR Velocity: 1.84 m/s TR Gradient: 13.48 mmHg Procedure Note Interface, External Ris In - 04/16/2019 9:32 AM DIRECTOR OF ACADEMIC Transthoracic Echocardiography Report (TTE) Demographics Patient Name YAMILKA GLORIA Date of Study 04/15/2019 [place] Female Visit Number [id number] Race Unknown Room Number 7106 Number Date of 1950 Refe rring Physician Age 68 year(s) Dwaine Brownlee RDCS Inte rpreting Miguel Peña MD Fellow Giovani Briseno MD Procedure Type of Study TTE procedure:2DECHO W DOPPLE R(CW/PW/COLOR) (STAT) Indications:Respiratory failure or hypox emia , Concern for Pulm Emboli and RV Function evaluation. Clinical History Brain cancer. Contrast Medium: Bubble Study. Height: 66 inches Weight: 79.83 kg (176 lbs) BSA: 1.89 m^2 BMI: 28.41 kg/m^2 HR: 96 bpm BP: 132/101 mmHg Summary 1. Normal overall left ventricular syst olic function (EF 55-59% by Rios's method). No apparent segmenta l wall motion abnormalities. 2. Diastology: Tachycardia precludes di astology assessment. 3. RV is severely enlarged. RV function is reduced 4. No significant valvular heart diseas e 5. Mild TR. Estimated PASP is 45-50 mm Hg 6. A trivial pericardial effusion is pr esent . 7. There is no evidence of right to lef t shunting after the injection of agitated saline Previous Study No prior studies available for comparis on. Signature Findings Rhythm/BP Exam limited by sinus tachycardia. Left Ventricle The left ventric le is chamber size (by PSLAX dimension) is sm all (female - LVIDd < 3.8cm). Moderate asymmet mira LVH noted.. Normal overall left ventricular syst olic function (EF 55-59% by Rios's method ). No apparent segmental wall motion abnormali ties. Abnormal septal wall motion. Tachycardia prec ludes diastology assessment. Left Atrium LA size is salena l . Right Ventricle RV is severely e nlarged.RV function is reduced. Right Atrium RA size is sever danilo dilated. Atrial Septum Normal interatri al septum by available views. There is no evid ence of right to left shunting after the inject ion of agitated saline Aortic Valve Normal AoV struc ture and function. Mitral Valve Normal MV struct ure and function. Tricuspid Valve Mild tricuspid r egurgitation. Estimated peak s ystolic PA pressure is 45-50 mmHg. Pulmonic Valve Normal PV struct ure appears normal by available views. Pulmonary artery is not well-visualized. Pericardium A trivial perica rdial effusion is present . Echodensities ar e noted in the pericardial space. IVC/SVC/PA/PV/Pleural The estimated RA pressure by IVC dynamics 11-15mmHg . Chambers/Structures Left Atrium LA Volume: 45.51 ml LA Vol. Index: 24 ml/m^2 Left Ventricle LVIDd: 3.36 cm LVEDV:46.02 ml LVIDs: 2.65 cm LVESV:18.54 ml LV Septum Diastolic: 1.36 cm LVEF 2D Cube: 51 % LV PW Diastolic: 1.15 cm LV FS: 21.1 % LVEF: 59.7 % Doppler/Quantitative Measurements Mitral Valve MR Velocit y: 3.68 m/s MR VTI: 10 6.84 cm MV Stu. Peak: Aortic Valve Peak Velocity: 1.05 m/s Me an Velocity: 0.61 m/s Peak Gradient: 4.38 mmHg Me an Gradient: 1.79 mmHg AV VTI: 11.44 cm AV DVI: 0.79 LVOT Peak Velocity: 0.77 m/s Pea k Gradient: 2.34 mmHg Mean Velocity: 0.44 m/s Kavya n Gradient: 0.94 mmHg LVO T VTI: 8.99 cm Tricuspid Valve TR Velocity: 1.84 m/s TR Gradient: 13.48 mmHg Performing Organization Address [facility] Phone Number [facility] MKCKESSON CPACS Prepare Leuko-Red RBC (04/15/2019 5:37 PM DIRECTOR OF ACADEMIC) CROSSMATCH COMPATIBLE SAFETRACE TX Unit ABO AB Neg SAFETRACE TX UNIT NUMBER [id number] SAFETRACE TX Status RETURNED FROM ISSUE SAFETRACE TX Blood Bank Product RED BLOOD CELLS SAFETRACE TX PRODUCT CODE [id number] SAFETRACE TX CROSSMATCH COMPATIBLE SAFETRACE TX Unit ABO A Pos SAFETRACE TX UNIT NUMBER [id number] SAFETRACE TX Status RETURNED FROM ISSUE SAFETRACE TX Blood Bank Product RED BLOOD CELLS SAFETRACE TX PRODUCT CODE [id number] SAFETRACE TX Specimen Other Performing Organization Address [facility] [place] [place] Phone Number SAFETRACE TX POC ACTIVATED CLOTTING TIME (04/15/2019 4:51 PM DIRECTOR OF ACADEMIC) Activated Clotting Time 180Comment: Reference sec [facility] Range: 74-137 seconds, MEDICAL CENTER Baseline/TESTED AT [address] [address] Specimen Blood Performing Organization Address [facility] [place] [place] Phone Number [facility] [address] [place] [address] [phone] CENTER AB[place]H, manual (04/15/2019 11:50 AM DIRECTOR OF ACADEMIC) ABO Grouping AB [facility] Rh Factor POS [facility] Specimen Blood Performing Organization Address [facility] Phone Number [address] [phone] Type and screen, automated ([facility] Lab) (04/15/2019 11:07 AM DIRECTOR OF ACADEMIC) ABO/RH AUTOMATED (BEAKER) AB POSITIVE [facility] Ab Scrn NEGATIVE [facility] Specimen Blood Performing Organization Address [facility] Phone Number [facility] [address] [place] [address] [phone] Troponin I (04/15/2019 10:52 AM DIRECTOR OF ACADEMIC) Troponin I <0.01 0.00 - 0.03 ng/mL [facility] Specimen Blood Narrative Performed At Troponin I (TnI) levels must be interpreted [facility] in the context of the presenting symptoms and the clinical findings. Elevated TnI levels indicate myocardial damage, but are not specific for ischemic heart disease. Elevated TnI levels are seen in patients with other cardiac conditions (including myocarditis and congestive heart failure), and slight TnI elevations occur in patients with other conditions, including sepsis, renal failure, acidosis, acute neurological disease, and persistent tachyarrhythmia. Clinical Account Liaison ID - [place] Performing Organization Address [facility] Phone Number [address] [address] CENTER B-type Natriuretic Factor (BNP) (04/15/2019 10:52 AM DIRECTOR OF ACADEMIC) BNP 514 (H) 0 - 100 pg/mL [facility] Specimen Blood Narrative Performed At Clinical Account Liaison ID - [place] [facility] Performing Organization Address [facility] Phone Number [address] [phone] CENTER Comprehensive metabolic panel (04/15/2019 10:52 AM DIRECTOR OF ACADEMIC) Protein, Total 6.2 6.0 - 8.3 gm/dL [facility] ER Albumin 3.3 (L) 3.5 - 5.0 g/dL [facility] ER Alkaline Phosphatase 66 40 - 150 U/L [facility] Total Bilirubin 0.5 0.2 - 1.2 mg/dL [facility] Sodium 142 136 - 145 meq/L [facility] Potassium 3.7 3.5 - 5.1 meq/L [facility] Chloride 108 (H) 98 - 107 meq/L [facility] CO2 27 22 - 29 meq/L [facility] BUN 6 (L) 7 - 21 mg/dL [facility] Creatinine 0.65 0.57 - 1.25 mg/dL [facility] Glucose 100 70 - 105 mg/dL [facility] Calcium 8.9 8.4 - 10.2 mg/dL [facility] AST 10 5 - 34 U/L [facility] ALT 8 6 - 55 U/L [facility] EGFR 91Comment: ESTIMATED GFR mL/min/1.73 sq m [facility] ST [facility] IS NOT ACCURATE [facility] CREATININE CLEARANCE IN PREDICTING GLOMERULAR FILTRATION RATE. ESTIMATED GFR IS NOT APPLICABLE FOR DIALYSIS PATIENTS. Specimen Blood Narrative Performed At Clinical Account Liaison ID - SABRINA [facility] CENTER Performing Organization Address City/State/Zipcode Phone Number [facility] [address] [place], [place] [phone] CENTER after 07/28/2018 Insurance Payer Benefit Plan / Subscriber ID Type Phone Address Group MEDICARE MEDICARE PART A xxxxxxxxxxx Medicare BLUE CROSS/BLUE BCBS OS xxxxxxxxxxxxxxx PPO [phone] [address] SHIELD POS/PP[place] [address] Advance Directives For more information, please contact:[facility] [address] [phone] Code Status Date Activated Date Inactivated Comments Full Code 04/15/2019 10:33 AM 04/20/2019 4:59 PM This code status was determined by: Patient
--- OUTSIDE RECORDS SUMMARY | 2019-07-29 12:24 | XMS REPORT ---
:1950 Author Organization [facility] t Address [address] [place] [address] [address]. [address] [place] [address] Care Team Providers Name Role Phone DR RHONA Attending Clinician Unavailable RADHA Attending Clinician Unavailable DR RHONA Admitting Clinician Unavailable RADHA Admitting Clinician Unavailable Problems This patient has no known problems. Allergies, Adverse Reactions, Alerts This patient has no known allergies or adverse reactions. Medications This patient has no known medications. Procedures This patient has no known procedures. Encounters Start End Encounter Admission Attending Care Care Encounter Source Date/Time Date/Time Type Type Clinicians Facility Department ID 2018-04-17 Inpatient C RHONA [facility] [id number] [facility] 06:00:00 [facility] Results Test Description Test Time Test Comments Results Result Comments Source PHOSPHORUS 2019-04-20 05:27:00 Test Item Value Reference Range Interpretation Comme nts PHOSPHORUS (BEAKER) (test code = 604) 3.4 mg/dL 2.3-4.7 Manager Printing ID - MADHU [id number] 05:27:00 Test Item Value Reference Range Interpretation Comments MAGNESIUM (BEAKER) (test code = 2.0 mg/dL 1.6-2.6 627) Manager Printing ID - MADHU MBASIC METABOLIC [id number] 05:27:00 Test Item Value Reference Range Interpretation Comments SODIUM (BEAKER) 139 meq/L 136-145 (test code = 381) POTASSIUM (BEAKER) 3.6 meq/L 3.5-5.1 (test code = 379) CHLORIDE (BEAKER) 103 meq/L 98-107 (test code = 382) CO2 (BEAKER) (test 29 meq/L 22-29 code = 355) BLOOD UREA NITROGEN 8 mg/dL 7-21 (BEAKER) (test code = 354) CREATININE (BEAKER) 0.66 mg/dL 0.57-1.25 (test code = 358) GLUCOSE RANDOM 112 mg/dL 70-105 H (BEAKER) (test code = 652) CALCIUM (BEAKER) 8.9 mg/dL 8.4-10.2 (test code = 697) EGFR (BEAKER) (test 90 mL/min/1.73 ESTIMA CURT GFR IS code = 1092) sq m NOT ACCURATE CREATININE CLEARANCE IN PREDICTING GLOMERULAR FILTRATION RATE . ESTIMATED GFR I S NOT APPLICABLE FOR DIALYSIS PATIEN TS. Manager Printing ID - MADHU MHEPATIC FUNCTION [id number] 05:27:00 Test Item Value Reference Range Interpretation Comments TOTAL PROTEIN (BEAKER) (test code = 6.1 gm/dL 6.0-8.3 770) ALBUMIN (BEAKER) (test code = 1145) 3.2 g/dL 3.5-5.0 L BILIRUBIN TOTAL (BEAKER) (test code 0.5 mg/dL 0.2-1.2 = 377) BILIRUBIN DIRECT (BEAKER) (test 0.3 mg/dL 0.1-0.5 code = 706) ALKALINE PHOSPHATASE (BEAKER) (test 65 U/L 40-150 code = 346) AST (SGOT) (BEAKER) (test code = 12 U/L 5-34 353) ALT (SGPT) (BEAKER) (test code = 20 U/L 6-55 347) Manager Printing ID - MADHU [id number] 05:20:00 Test Item Value Reference Range Interpretation Comments PROTIME (BEAKER) (test code = 19.0 seconds 11.9-14.2 H 759) INR (BEAKER) (test code = 370) 1.6 <=5.9 PARTIAL THROMBOPLASTIN TIME 36.9 seconds 22.5-36.0 H (BEAKER) (test code = 760) Effective 07/29/2018: PT Reference Range ChangeNew: 11.9-14.2 Previous: 11.7- 14.7RECOMMENDED COUMADIN/WARFARIN INR THERAPY RANGESSTANDARD DOSE: 2.0-3.0 Includes: PROPHYLAXIS for venous thrombosis, systemic embolization; TREATMENT for venous thrombosis and/or pulmonary embolus.HIGH RISK: Target INR is2.5-3.5 for patients wiht mechanical heart valves.CBC W/PLT COUNT & AUTO [id number] 04:56:00 Test Item Value Reference Range Interpretation Comments WHITE BLOOD CELL COUNT (BEAKER) 5.9 K/ L 3.5-10.5 (test code = 775) RED BLOOD CELL COUNT (BEAKER) 3.33 M/ L 3.93-5.22 L (test code = 761) HEMOGLOBIN (BEAKER) (test code = 9.9 GM/DL 11.2-15.7 L 410) HEMATOCRIT (BEAKER) (test code = 31.7 % 34.1-44.9 L 411) MEAN CORPUSCULAR VOLUME (BEAKER) 95.2 fL 79.4-94.8 H (test code = 753) MEAN CORPUSCULAR HEMOGLOBIN 29.7 pg 25.6-32.2 (BEAKER) (test code = 751) MEAN CORPUSCULAR HEMOGLOBIN CONC 31.2 GM/DL 32.2-35.5 L (BEAKER) (test code = 752) RED CELL DISTRIBUTION WIDTH 14.0 % 11.7-14.4 (BEAKER) (test code = 412) PLATELET COUNT (BEAKER) (test 181 K/CU MM 150-450 code = 756) MEAN PLATELET VOLUME (BEAKER) 9.3 fL 9.4-12.3 L (test code = 754) NUCLEATED RED BLOOD CELLS 0 /100 WBC 0-0 (BEAKER) (test code = 413) NEUTROPHILS RELATIVE PERCENT 74 % (BEAKER) (test code = 429) LYMPHOCYTES RELATIVE PERCENT 12 % (BEAKER) (test code = 430) MONOCYTES RELATIVE PERCENT 8 % (BEAKER) (test code = 431) EOSINOPHILS RELATIVE PERCENT 5 % (BEAKER) (test code = 432) BASOPHILS RELATIVE PERCENT 1 % (BEAKER) (test code = 437) NEUTROPHILS ABSOLUTE COUNT 4.34 K/ L 1.56-6.13 (BEAKER) (test code = 670) LYMPHOCYTES ABSOLUTE COUNT 0.69 K/ L 1.18-3.74 L (BEAKER) (test code = 414) MONOCYTES ABSOLUTE COUNT (BEAKER) 0.47 K/ L 0.24-0.36 H (test code = 415) EOSINOPHILS ABSOLUTE COUNT 0.31 K/ L 0.04-0.36 (BEAKER) (test code = 416) BASOPHILS ABSOLUTE COUNT (BEAKER) 0.04 K/ L 0.01-0.08 (test code = 417) IMMATURE GRANULOCYTES-RELATIVE 0 % 0-1 PERCENT (BEAKER) (test code = 2801) [id number] 07:20:00 Test Item Value Reference Range Interpretation Comments PHOSPHORUS (BEAKER) (test code = 4.1 mg/dL 2.3-4.7 604) Manager Printing ID - [id number] 07:20:00 Test Item Value Reference Range Interpretation Comments MAGNESIUM (BEAKER) (test code = 2.0 mg/dL 1.6-2.6 627) Manager Printing ID - LABASIC METABOLIC [id number] 07:20:00 Test Item Value Reference Range Interpretation Comments SODIUM (BEAKER) 141 meq/L 136-145 (test code = 381) POTASSIUM (BEAKER) 3.8 meq/L 3.5-5.1 (test code = 379) CHLORIDE (BEAKER) 105 meq/L 98-107 (test code = 382) CO2 (BEAKER) (test 28 meq/L 22-29 code = 355) BLOOD UREA NITROGEN 8 mg/dL 7-21 (BEAKER) (test code = 354) CREATININE (BEAKER) 0.67 mg/dL 0.57-1.25 (test code = 358) GLUCOSE RANDOM 106 mg/dL 70-105 H (BEAKER) (test code = 652) CALCIUM (BEAKER) 9.0 mg/dL 8.4-10.2 (test code = 697) EGFR (BEAKER) (test 88 mL/min/1.73 ESTIMA CURT GFR IS code = 1092) sq m NOT ACCURATE CREATININE CLEARANCE IN PREDICTING GLOMERULAR FILTRATION RATE . ESTIMATED GFR I S NOT APPLICABLE FOR DIALYSIS PATIEN TS. Manager Printing ID - LAHEPATIC FUNCTION [id number] 07:20:00 Test Item Value Reference Range Interpretation Comments TOTAL PROTEIN (BEAKER) (test code = 6.2 gm/dL 6.0-8.3 770) ALBUMIN (BEAKER) (test code = 1145) 3.3 g/dL 3.5-5.0 L BILIRUBIN TOTAL (BEAKER) (test code 0.6 mg/dL 0.2-1.2 = 377) BILIRUBIN DIRECT (BEAKER) (test 0.3 mg/dL 0.1-0.5 code = 706) ALKALINE PHOSPHATASE (BEAKER) (test 68 U/L 40-150 code = 346) AST (SGOT) (BEAKER) (test code = 20 U/L 5-34 353) ALT (SGPT) (BEAKER) (test code = 29 U/L 6-55 347) Manager Printing ID - [id number] 05:28:00 Test Item Value Reference Range Interpretation Comments PROTIME (BEAKER) (test code = 19.8 seconds 11.9-14.2 H 759) INR (BEAKER) (test code = 370) 1.7 <=5.9 PARTIAL THROMBOPLASTIN TIME 34.9 seconds 22.5-36.0 (BEAKER) (test code = 760) Effective 07/29/2018: PT Reference Range ChangeNew: 11.9-14.2 Previous: 11.7- 14.7RECOMMENDED COUMADIN/WARFARIN INR THERAPY RANGESSTANDARD DOSE: 2.0-3.0 Includes: PROPHYLAXIS for venous thrombosis, systemic embolization; TREATMENT for venous thrombosis and/or pulmonary embolus.HIGH RISK: Target INR is2.5-3.5 for patients wiht mechanical heart valves.CBC W/PLT COUNT & AUTO [id number] 05:19:00 Test Item Value Reference Range Interpretation Comments WHITE BLOOD CELL COUNT (BEAKER) 5.8 K/ L 3.5-10.5 (test code = 775) RED BLOOD CELL COUNT (BEAKER) 3.57 M/ L 3.93-5.22 L (test code = 761) HEMOGLOBIN (BEAKER) (test code = 10.7 GM/DL 11.2-15.7 L 410) HEMATOCRIT (BEAKER) (test code = 33.5 % 34.1-44.9 L 411) MEAN CORPUSCULAR VOLUME (BEAKER) 93.8 fL 79.4-94.8 (test code = 753) MEAN CORPUSCULAR HEMOGLOBIN 30.0 pg 25.6-32.2 (BEAKER) (test code = 751) MEAN CORPUSCULAR HEMOGLOBIN CONC 31.9 GM/DL 32.2-35.5 L (BEAKER) (test code = 752) RED CELL DISTRIBUTION WIDTH 14.0 % 11.7-14.4 (BEAKER) (test code = 412) PLATELET COUNT (BEAKER) (test 194 K/CU MM 150-450 code = 756) MEAN PLATELET VOLUME (BEAKER) 9.3 fL 9.4-12.3 L (test code = 754) NUCLEATED RED BLOOD CELLS 0 /100 WBC 0-0 (BEAKER) (test code = 413) NEUTROPHILS RELATIVE PERCENT 71 % (BEAKER) (test code = 429) LYMPHOCYTES RELATIVE PERCENT 14 % (BEAKER) (test code = 430) MONOCYTES RELATIVE PERCENT 8 % (BEAKER) (test code = 431) EOSINOPHILS RELATIVE PERCENT 6 % (BEAKER) (test code = 432) BASOPHILS RELATIVE PERCENT 1 % (BEAKER) (test code = 437) NEUTROPHILS ABSOLUTE COUNT 4.12 K/ L 1.56-6.13 (BEAKER) (test code = 670) LYMPHOCYTES ABSOLUTE COUNT 0.81 K/ L 1.18-3.74 L (BEAKER) (test code = 414) MONOCYTES ABSOLUTE COUNT (BEAKER) 0.49 K/ L 0.24-0.36 H (test code = 415) EOSINOPHILS ABSOLUTE COUNT 0.32 K/ L 0.04-0.36 (BEAKER) (test code = 416) BASOPHILS ABSOLUTE COUNT (BEAKER) 0.04 K/ L 0.01-0.08 (test code = 417) IMMATURE GRANULOCYTES-RELATIVE 0 % 0-1 PERCENT (BEAKER) (test code = 2801) RAD, CHEST, 1 VIEW, NON [id number] 02:42:00Reason for exam:- >hypoxemiaShould this be performed at the bedside?->YesFINAL REPORT History: Hypoxemia. Comparison: None. Findings: A single view of the chest is submitted. The cardiac silhouette is within normal limits for size. There is atherosclerotic calcification of an ectatic aorta. The right hemidiaphragm is elevated. Patchy perihilar opacity in the right perihilar lung may relate to adjacent atelectasis though pneumonitis should be excluded clinically. A right perihilar lesion or adenopathy cannot be excluded with postcontrast CT chestis old examinations are not available elsewhere to demonstrate stability over time. There is no pneumothorax, large pleural effusion, evidence of overt pulmonary edema or acute bony abnormality. Signed: [facility] Fallon [facility] Verified Date/Time: 04/19/2019 02:42:27 PHOSPHORUS 2019-04-18 07:01:00 Test Item Value Reference Range Interpretation Comments PHOSPHORUS (BEAKER) (test code = 3.7 mg/dL 2.3-4.7 604) Manager Printing ID - MADHU [id number] 07:01:00 Test Item Value Reference Range Interpretation Comments MAGNESIUM (BEAKER) (test code = 1.8 mg/dL 1.6-2.6 627) Manager Printing ID - MADHU MBASIC METABOLIC [id number] 07:01:00 Test Item Value Reference Range Interpretation Comments SODIUM (BEAKER) 140 meq/L 136-145 (test code = 381) POTASSIUM (BEAKER) 3.6 meq/L 3.5-5.1 (test code = 379) CHLORIDE (BEAKER) 102 meq/L 98-107 (test code = 382) CO2 (BEAKER) (test 29 meq/L 22-29 code = 355) BLOOD UREA NITROGEN 8 mg/dL 7-21 (BEAKER) (test code = 354) CREATININE (BEAKER) 0.65 mg/dL 0.57-1.25 (test code = 358) GLUCOSE RANDOM 106 mg/dL 70-105 H (BEAKER) (test code = 652) CALCIUM (BEAKER) 9.1 mg/dL 8.4-10.2 (test code = 697) EGFR (BEAKER) (test 91 mL/min/1.73 ESTIMA CURT GFR IS code = 1092) sq m NOT ACCURATE CREATININE CLEARANCE IN PREDICTING GLOMERULAR FILTRATION RATE . ESTIMATED GFR I S NOT APPLICABLE FOR DIALYSIS PATIEN TS. Manager Printing ID - MADHU EPATIC FUNCTION [id number] 07:01:00 Test Item Value Reference Range Interpretation Comments TOTAL PROTEIN (BEAKER) (test code = 6.2 gm/dL 6.0-8.3 770) ALBUMIN (BEAKER) (test code = 1145) 3.3 g/dL 3.5-5.0 L BILIRUBIN TOTAL (BEAKER) (test code 0.6 mg/dL 0.2-1.2 = 377) BILIRUBIN DIRECT (BEAKER) (test 0.3 mg/dL 0.1-0.5 code = 706) ALKALINE PHOSPHATASE (BEAKER) (test 68 U/L 40-150 code = 346) AST (SGOT) (BEAKER) (test code = 35 U/L 5-34 H 353) ALT (SGPT) (BEAKER) (test code = 34 U/L 6-55 347) Manager Printing VINICIO LEUNG [facility] W/PLT COUNT & AUTO [id number] 06:37:00 Test Item Value Reference Range Interpretation Comments WHITE BLOOD CELL COUNT (BEAKER) 5.3 K/ L 3.5-10.5 (test code = 775) RED BLOOD CELL COUNT (BEAKER) 3.60 M/ L 3.93-5.22 L (test code = 761) HEMOGLOBIN (BEAKER) (test code = 10.7 GM/DL 11.2-15.7 L 410) HEMATOCRIT (BEAKER) (test code = 33.9 % 34.1-44.9 L 411) MEAN CORPUSCULAR VOLUME (BEAKER) 94.2 fL 79.4-94.8 (test code = 753) MEAN CORPUSCULAR HEMOGLOBIN 29.7 pg 25.6-32.2 (BEAKER) (test code = 751) MEAN CORPUSCULAR HEMOGLOBIN CONC 31.6 GM/DL 32.2-35.5 L (BEAKER) (test code = 752) RED CELL DISTRIBUTION WIDTH 14.2 % 11.7-14.4 (BEAKER) (test code = 412) PLATELET COUNT (BEAKER) (test 200 K/CU MM 150-450 code = 756) MEAN PLATELET VOLUME (BEAKER) 9.6 fL 9.4-12.3 (test code = 754) NUCLEATED RED BLOOD CELLS 0 /100 WBC 0-0 (BEAKER) (test code = 413) NEUTROPHILS RELATIVE PERCENT 70 % (BEAKER) (test code = 429) LYMPHOCYTES RELATIVE PERCENT 14 % (BEAKER) (test code = 430) MONOCYTES RELATIVE PERCENT 9 % (BEAKER) (test code = 431) EOSINOPHILS RELATIVE PERCENT 6 % (BEAKER) (test code = 432) BASOPHILS RELATIVE PERCENT 1 % (BEAKER) (test code = 437) NEUTROPHILS ABSOLUTE COUNT 3.72 K/ L 1.56-6.13 (BEAKER) (test code = 670) LYMPHOCYTES ABSOLUTE COUNT 0.73 K/ L 1.18-3.74 L (BEAKER) (test code = 414) MONOCYTES ABSOLUTE COUNT (BEAKER) 0.45 K/ L 0.24-0.36 H (test code = 415) EOSINOPHILS ABSOLUTE COUNT 0.34 K/ L 0.04-0.36 (BEAKER) (test code = 416) BASOPHILS ABSOLUTE COUNT (BEAKER) 0.04 K/ L 0.01-0.08 (test code = 417) IMMATURE GRANULOCYTES-RELATIVE 0 % 0-1 PERCENT (BEAKER) (test code = 2801) [id number] 06:14:00 Test Item Value Reference Range Interpretation Comments PROTIME (BEAKER) (test code = 18.5 seconds 11.9-14.2 H 759) INR (BEAKER) (test code = 370) 1.6 <=5.9 PARTIAL THROMBOPLASTIN TIME 32.0 seconds 22.5-36.0 (BEAKER) (test code = 760) Effective 07/29/2018: PT Reference Range ChangeNew: 11.9-14.2 Previous: 11.7- 14.7RECOMMENDED COUMADIN/WARFARIN INR THERAPY RANGESSTANDARD DOSE: 2.0-3.0 Includes: PROPHYLAXIS for venous thrombosis, systemic embolization; TREATMENT for venous thrombosis and/or pulmonary embolus.HIGH RISK: Target INR is2.5-3.5 for patients wiht mechanical heart valves.POCT-GLUCOSE [id number] 16:20:00 Test Item Value Reference Range Interpretation Comments POC-GLUCOSE METER 116 mg/dL 70-110 H : TESTED A T [facility] 6720 ([employer]) (test code = [facility], 1538) [address]: Manager Printing/Techni martha ID = [id number] for LATI N, JOSE POCT-GLUCOSE [id number] 08:14:00 Test Item Value Reference Range Interpretation Comments POC-GLUCOSE METER 103 mg/dL 70-110 : TESTED A T [facility] [address] ([employer]) (test code = [facility], 1538) [address]: Manager Printing/Techni martha ID = [id number] for LATI N, JOSE [id number] 06:53:00 Test Item Value Reference Range Interpretation Comments PHOSPHORUS (BEAKER) (test code = 3.9 mg/dL 2.3-4.7 604) Manager Printing ID - MADHU [id number] 06:53:00 Test Item Value Reference Range Interpretation Comments MAGNESIUM (BEAKER) (test code = 1.9 mg/dL 1.6-2.6 627) Manager Printing ID - MADHU MBASIC METABOLIC [id number] 06:53:00 Test Item Value Reference Range Interpretation Comments SODIUM (BEAKER) 140 meq/L 136-145 (test code = 381) POTASSIUM (BEAKER) 3.5 meq/L 3.5-5.1 (test code = 379) CHLORIDE (BEAKER) 104 meq/L 98-107 (test code = 382) CO2 (BEAKER) (test 25 meq/L 22-29 code = 355) BLOOD UREA NITROGEN 7 mg/dL 7-21 (BEAKER) (test code = 354) CREATININE (BEAKER) 0.76 mg/dL 0.57-1.25 (test code = 358) GLUCOSE RANDOM 111 mg/dL 70-105 H (BEAKER) (test code = 652) CALCIUM (BEAKER) 9.0 mg/dL 8.4-10.2 (test code = 697) EGFR (BEAKER) (test 76 mL/min/1.73 ESTIMA CURT GFR IS code = 1092) sq m NOT ACCURATE CREATININE CLEARANCE IN PREDICTING GLOMERULAR FILTRATION RATE . ESTIMATED GFR I S NOT APPLICABLE FOR DIALYSIS PATIEN TS. Manager Printing ID - MADHU MHEPATIC FUNCTION [id number] 06:53:00 Test Item Value Reference Range Interpretation Comments TOTAL PROTEIN (BEAKER) (test code = 6.3 gm/dL 6.0-8.3 770) ALBUMIN (BEAKER) (test code = 1145) 3.3 g/dL 3.5-5.0 L BILIRUBIN TOTAL (BEAKER) (test code 0.5 mg/dL 0.2-1.2 = 377) BILIRUBIN DIRECT (BEAKER) (test 0.2 mg/dL 0.1-0.5 code = 706) ALKALINE PHOSPHATASE (BEAKER) (test 70 U/L 40-150 code = 346) AST (SGOT) (BEAKER) (test code = 21 U/L 5-34 353) ALT (SGPT) (BEAKER) (test code = 18 U/L 6-55 347) Manager Printing ID - MADHU [id number] 06:52:00 Test Item Value Reference Range Interpretation Comments PROTIME (BEAKER) (test code = 18.4 seconds 11.9-14.2 H 759) INR (BEAKER) (test code = 370) 1.6 <=5.9 PARTIAL THROMBOPLASTIN TIME 35.3 seconds 22.5-36.0 (BEAKER) (test code = 760) Effective 07/29/2018: PT Reference Range ChangeNew: 11.9-14.2 Previous: 11.7- 14.7RECOMMENDED COUMADIN/WARFARIN INR THERAPY RANGESSTANDARD DOSE: 2.0-3.0 Includes: PROPHYLAXIS for venous thrombosis, systemic embolization; TREATMENT for venous thrombosis and/or pulmonary embolus.HIGH RISK: Target INR is2.5-3.5 for patients wiht mechanical heart valves.CBC W/PLT COUNT & AUTO [id number] 06:17:00 Test Item Value Reference Range Interpretation Comments WHITE BLOOD CELL COUNT (BEAKER) 6.0 K/ L 3.5-10.5 (test code = 775) RED BLOOD CELL COUNT (BEAKER) 3.77 M/ L 3.93-5.22 L (test code = 761) HEMOGLOBIN (BEAKER) (test code = 11.2 GM/DL 11.2-15.7 410) HEMATOCRIT (BEAKER) (test code = 35.5 % 34.1-44.9 411) MEAN CORPUSCULAR VOLUME (BEAKER) 94.2 fL 79.4-94.8 (test code = 753) MEAN CORPUSCULAR HEMOGLOBIN 29.7 pg 25.6-32.2 (BEAKER) (test code = 751) MEAN CORPUSCULAR HEMOGLOBIN CONC 31.5 GM/DL 32.2-35.5 L (BEAKER) (test code = 752) RED CELL DISTRIBUTION WIDTH 14.3 % 11.7-14.4 (BEAKER) (test code = 412) PLATELET COUNT (BEAKER) (test 220 K/CU MM 150-450 code = 756) MEAN PLATELET VOLUME (BEAKER) 9.3 fL 9.4-12.3 L (test code = 754) NUCLEATED RED BLOOD CELLS 0 /100 WBC 0-0 (BEAKER) (test code = 413) NEUTROPHILS RELATIVE PERCENT 71 % (BEAKER) (test code = 429) LYMPHOCYTES RELATIVE PERCENT 15 % (BEAKER) (test code = 430) MONOCYTES RELATIVE PERCENT 8 % (BEAKER) (test code = 431) EOSINOPHILS RELATIVE PERCENT 6 % (BEAKER) (test code = 432) BASOPHILS RELATIVE PERCENT 1 % (BEAKER) (test code = 437) NEUTROPHILS ABSOLUTE COUNT 4.21 K/ L 1.56-6.13 (BEAKER) (test code = 670) LYMPHOCYTES ABSOLUTE COUNT 0.89 K/ L 1.18-3.74 L (BEAKER) (test code = 414) MONOCYTES ABSOLUTE COUNT (BEAKER) 0.45 K/ L 0.24-0.36 H (test code = 415) EOSINOPHILS ABSOLUTE COUNT 0.34 K/ L 0.04-0.36 (BEAKER) (test code = 416) BASOPHILS ABSOLUTE COUNT (BEAKER) 0.05 K/ L 0.01-0.08 (test code = 417) IMMATURE GRANULOCYTES-RELATIVE 0 % 0-1 PERCENT (BEAKER) (test code = 2801) POCT-GLUCOSE [id number] 21:43:00 Test Item Value Reference Range Interpretation Comments POC-GLUCOSE METER 124 mg/dL 70-110 H : [facility] (test code = [facility], 1538) [address]: Manager Printing/Techni martha ID = [id number] for KESHA RO [id number] 08:37:00 Test Item Value Reference Range Interpretation Comments PHOSPHORUS (BEAKER) (test code = 4.1 mg/dL 2.3-4.7 604) Manager Printing ID Ritchie GONCALVES [id number] 08:37:00 Test Item Value Reference Range Interpretation Comments MAGNESIUM (BEAKER) (test code = 1.9 mg/dL 1.6-2.6 627) Manager Printing ID Ritchie GONCALVES FBASIC METABOLIC [id number] 08:37:00 Test Item Value Reference Range Interpretation Comments SODIUM (BEAKER) 139 meq/L 136-145 (test code = 381) POTASSIUM (BEAKER) 3.6 meq/L 3.5-5.1 (test code = 379) CHLORIDE (BEAKER) 106 meq/L 98-107 (test code = 382) CO2 (BEAKER) (test 24 meq/L 22-29 code = 355) BLOOD UREA NITROGEN 6 mg/dL 7-21 L (BEAKER) (test code = 354) CREATININE (BEAKER) 0.64 mg/dL 0.57-1.25 (test code = 358) GLUCOSE RANDOM 98 mg/dL 70-105 (BEAKER) (test code = 652) CALCIUM (BEAKER) 8.4 mg/dL 8.4-10.2 (test code = 697) EGFR (BEAKER) (test 93 mL/min/1.73 ESTIMA CURT GFR IS code = 1092) sq m NOT ACCURATE CREATININE CLEARANCE IN PREDICTING GLOMERULAR FILTRATION RATE . ESTIMATED GFR I S NOT APPLICABLE FOR DIALYSIS PATIEN TS. Manager Printing ID Ritchie GONCALVES FHEPATIC FUNCTION [id number] 08:37:00 Test Item Value Reference Range Interpretation Comments TOTAL PROTEIN (BEAKER) (test code = 5.7 gm/dL 6.0-8.3 L 770) ALBUMIN (BEAKER) (test code = 1145) 3.0 g/dL 3.5-5.0 L BILIRUBIN TOTAL (BEAKER) (test code 0.6 mg/dL 0.2-1.2 = 377) BILIRUBIN DIRECT (BEAKER) (test 0.3 mg/dL 0.1-0.5 code = 706) ALKALINE PHOSPHATASE (BEAKER) (test 62 U/L 40-150 code = 346) AST (SGOT) (BEAKER) (test code = 13 U/L 5-34 353) ALT (SGPT) (BEAKER) (test code = 9 U/L 6-55 347) Manager Printing ID - SACHA [id number] 06:48:00 Test Item Value Reference Range Interpretation Comments PROTIME (BEAKER) (test code = 16.9 seconds 11.9-14.2 H 759) INR (BEAKER) (test code = 370) 1.4 <=5.9 PARTIAL THROMBOPLASTIN TIME 34.3 seconds 22.5-36.0 (BEAKER) (test code = 760) Effective 07/29/2018: PT Reference Range ChangeNew: 11.9-14.2 Previous: 11.7- 14.7RECOMMENDED COUMADIN/WARFARIN INR THERAPY RANGESSTANDARD DOSE: 2.0-3.0 Includes: PROPHYLAXIS for venous thrombosis, systemic embolization; TREATMENT for venous thrombosis and/or pulmonary embolus.HIGH RISK: Target INR is2.5-3.5 for patients wiht mechanical heart valves.CBC W/PLT COUNT & AUTO [id number] 06:13:00 Test Item Value Reference Range Interpretation Comments WHITE BLOOD CELL COUNT (BEAKER) 5.2 K/ L 3.5-10.5 (test code = 775) RED BLOOD CELL COUNT (BEAKER) 3.34 M/ L 3.93-5.22 L (test code = 761) HEMOGLOBIN (BEAKER) (test code = 9.9 GM/DL 11.2-15.7 L 410) HEMATOCRIT (BEAKER) (test code = 31.2 % 34.1-44.9 L 411) MEAN CORPUSCULAR VOLUME (BEAKER) 93.4 fL 79.4-94.8 (test code = 753) MEAN CORPUSCULAR HEMOGLOBIN 29.6 pg 25.6-32.2 (BEAKER) (test code = 751) MEAN CORPUSCULAR HEMOGLOBIN CONC 31.7 GM/DL 32.2-35.5 L (BEAKER) (test code = 752) RED CELL DISTRIBUTION WIDTH 14.2 % 11.7-14.4 (BEAKER) (test code = 412) PLATELET COUNT (BEAKER) (test 174 K/CU MM 150-450 code = 756) MEAN PLATELET VOLUME (BEAKER) 9.1 fL 9.4-12.3 L (test code = 754) NUCLEATED RED BLOOD CELLS 0 /100 WBC 0-0 (BEAKER) (test code = 413) NEUTROPHILS RELATIVE PERCENT 70 % (BEAKER) (test code = 429) LYMPHOCYTES RELATIVE PERCENT 13 % (BEAKER) (test code = 430) MONOCYTES RELATIVE PERCENT 9 % (BEAKER) (test code = 431) EOSINOPHILS RELATIVE PERCENT 6 % (BEAKER) (test code = 432) BASOPHILS RELATIVE PERCENT 1 % (BEAKER) (test code = 437) NEUTROPHILS ABSOLUTE COUNT 3.68 K/ L 1.56-6.13 (BEAKER) (test code = 670) LYMPHOCYTES ABSOLUTE COUNT 0.66 K/ L 1.18-3.74 L (BEAKER) (test code = 414) MONOCYTES ABSOLUTE COUNT (BEAKER) 0.49 K/ L 0.24-0.36 H (test code = 415) EOSINOPHILS ABSOLUTE COUNT 0.33 K/ L 0.04-0.36 (BEAKER) (test code = 416) BASOPHILS ABSOLUTE COUNT (BEAKER) 0.05 K/ L 0.01-0.08 (test code = 417) IMMATURE GRANULOCYTES-RELATIVE 0 % 0-1 PERCENT (BEAKER) (test code = 2801) [id number] 17:32:00 Test Item Value Reference Range Interpretation Comments ACTIVATED CLOTTING TIME 180 sec Refe rence Range: (BEAKER) (test code = 74-137 seconds, 441) Baseline/TESTED AT [place] [id number] [facility] [place] [address] B-TYPE NATRIURETIC FACTOR (BNP)2019-04-15 11:38:00 Test Item Value Reference Range Interpretation Comments B-TYPE NATRIURETIC PEPTIDE (BYRONAKER) 514 pg/mL 0-100 H (test code = 700) Manager Printing ID - [id number] 11:35:00 Test Item Value Reference Range Interpretation Comments PROTIME (BYRONAKER) (test code = 13.8 seconds 11.9-14.2 759) INR (BEAKER) (test code = 370) 1.1 <=5.9 PARTIAL THROMBOPLASTIN TIME 21.8 seconds 22.5-36.0 L (BEAKER) (test code = 760) Effective 07/29/2018: PT Reference Range ChangeNew: 11.9-14.2 Previous: 11.7- 14.7RECOMMENDED COUMADIN/WARFARIN INR THERAPY RANGESSTANDARD DOSE: 2.0-3.0 Includes: PROPHYLAXIS for venous thrombosis, systemic embolization; TREATMENT for venous thrombosis and/or pulmonary embolus.HIGH RISK: Target INR is2.5-3.5 for patients wiht mechanical heart valves.6 hours after starting heparin infusion and as indicated per sliding scale6 hours after starting heparin infusion and as indicated per sliding scaleTROPONIN [id number] 11:33:00 Test Item Value Reference Range Interpretation Comments TROPONIN I (BEAKER) (test code = 397) < ng/mL 0.00-0.03 Troponin I (TnI) levels must be interpreted in the context of the presenting symptoms and the clinical findings. Elevated TnI levels indicate myocardial damage, but are not specific for ischemic heart disease. Elevated TnI levels are seen in patients with other cardiac conditions (including myocarditis and congestive heart failure), and slight TnI elevations occur in patients with other conditions, including sepsis, renal failure, acidosis, acute neurological disease, and persistent tachyarrhythmia.Manager Printing ID - [id number] 11:27:00 Test Item Value Reference Range Interpretation Comments PHOSPHORUS (BEAKER) (test code = 3.1 mg/dL 2.3-4.7 604) Manager Printing ID - [id number] 11:27:00 Test Item Value Reference Range Interpretation Comments MAGNESIUM (BEAKER) (test code = 1.9 mg/dL 1.6-2.6 627) Manager Printing ID - LACOMPREHENSIVE METABOLIC [id number] 11:27:00 Test Item Value Reference Range Interpretation Comments TOTAL PROTEIN 6.2 gm/dL 6.0-8.3 (BEAKER) (test code = 770) ALBUMIN (BEAKER) 3.3 g/dL 3.5-5.0 L (test code = 1145) ALKALINE PHOSPHATASE 66 U/L 40-150 (BEAKER) (test code = 346) BILIRUBIN TOTAL 0.5 mg/dL 0.2-1.2 (BEAKER) (test code = 377) SODIUM (BEAKER) (test 142 meq/L 136-145 code = 381) POTASSIUM (BEAKER) 3.7 meq/L 3.5-5.1 (test code = 379) CHLORIDE (BEAKER) 108 meq/L 98-107 H (test code = 382) CO2 (BEAKER) (test 27 meq/L 22-29 code = 355) BLOOD UREA NITROGEN 6 mg/dL 7-21 L (BEAKER) (test code = 354) CREATININE (BEAKER) 0.65 mg/dL 0.57-1.25 (test code = 358) GLUCOSE RANDOM 100 mg/dL 70-105 (BEAKER) (test code = 652) CALCIUM (BEAKER) 8.9 mg/dL 8.4-10.2 (test code = 697) AST (SGOT) (BEAKER) 10 U/L 5-34 (test code = 353) ALT (SGPT) (BEAKER) 8 U/L 6-55 (test code = 347) EGFR (BEAKER) (test 91 mL/min/1.73 ESTIMA CURT GFR IS code = 1092) sq m NOT ACCURATE CREATININE CLEARANCE IN PREDICTING GLOMERULAR FILTRATION RATE . ESTIMATED GFR I S NOT APPLICABLE FOR DIALYSIS PATIEN TS. Manager Printing ID - LACBC W/PLT COUNT & AUTO [id number] 11:13:00 Test Item Value Reference Range Interpretation Comments WHITE BLOOD CELL COUNT (BEAKER) 5.7 K/ L 3.5-10.5 (test code = 775) RED BLOOD CELL COUNT (BEAKER) 3.63 M/ L 3.93-5.22 L (test code = 761) HEMOGLOBIN (BEAKER) (test code = 10.9 GM/DL 11.2-15.7 L 410) HEMATOCRIT (BEAKER) (test code = 34.3 % 34.1-44.9 411) MEAN CORPUSCULAR VOLUME (BEAKER) 94.5 fL 79.4-94.8 (test code = 753) MEAN CORPUSCULAR HEMOGLOBIN 30.0 pg 25.6-32.2 (BEAKER) (test code = 751) MEAN CORPUSCULAR HEMOGLOBIN CONC 31.8 GM/DL 32.2-35.5 L (BEAKER) (test code = 752) RED CELL DISTRIBUTION WIDTH 14.1 % 11.7-14.4 (BEAKER) (test code = 412) PLATELET COUNT (BEAKER) (test 176 K/CU MM 150-450 code = 756) MEAN PLATELET VOLUME (BEAKER) 9.5 fL 9.4-12.3 (test code = 754) NUCLEATED RED BLOOD CELLS 0 /100 WBC 0-0 (BEAKER) (test code = 413) NEUTROPHILS RELATIVE PERCENT 74 % (BEAKER) (test code = 429) LYMPHOCYTES RELATIVE PERCENT 13 % (BEAKER) (test code = 430) MONOCYTES RELATIVE PERCENT 8 % (BEAKER) (test code = 431) EOSINOPHILS RELATIVE PERCENT 5 % (BEAKER) (test code = 432) BASOPHILS RELATIVE PERCENT 1 % (BEAKER) (test code = 437) NEUTROPHILS ABSOLUTE COUNT 4.18 K/ L 1.56-6.13 (BEAKER) (test code = 670) LYMPHOCYTES ABSOLUTE COUNT 0.72 K/ L 1.18-3.74 L (BEAKER) (test code = 414) MONOCYTES ABSOLUTE COUNT (BEAKER) 0.45 K/ L 0.24-0.36 H (test code = 415) EOSINOPHILS ABSOLUTE COUNT 0.26 K/ L 0.04-0.36 (BEAKER) (test code = 416) BASOPHILS ABSOLUTE COUNT (BEAKER) 0.05 K/ L 0.01-0.08 (test code = 417) IMMATURE GRANULOCYTES-RELATIVE 0 % 0-1 PERCENT (BEAKER) (test code = 2801)
[2019-07-29 12:55] LABS: Absolute Lymphocytes (CBC) 0.7 K/uL (0.7-4.9); Basophils % 0.3 % (0-1.3); Hematocrit 35.7 % (36.0-45.0); Lymphocytes % 10.6 % (15.3-44.8); MPV 7.7 fL (7.6-11.3); RBC Red Blood Cell Count 3.81 M/uL (3.86-4.86)
[2019-07-29 13:04] LABS: Protime INR 1.16
--- NOTE | 2019-07-29 13:20 | RAD REPORT ---
EXAM DESCRIPTION: CT - Head Brain Wo Cont - 07/29/2019 1:05 pm CLINICAL HISTORY: Lethargic;Confused COMPARISON: Head Brain Wo Cont dated 04/12/2019; Chest For Pe Angio dated 04/12/2019 TECHNIQUE: Axial 5 mm thick images of the head were obtained without IV contrast. All CT scans are performed using dose optimization technique as appropriate and may include automated exposure control or mA/KV adjustment according to patient size. FINDINGS: No intracranial hemorrhage is identified. Prior April study details postsurgical change and history of brain tumor removal. Patient has had a very substantial change since the April study. Findings indicate extensive progr ession of a neoplastic process in the right cerebral hemisphere. There is significant edema throughou t the right cerebral white matter. Significant mass-effect is created and there is at least 7 mm of r ight to left midline shift at the level of the third ventricle. The right lateral and third ventricle s are effaced. Left ventricle is entrapped an enlarged compared to prior imaging. The mass effect and edema relatively spares the anterior most aspect of the frontal lobe and posteromedial aspect of the occipital lobe. A single discrete mass lesion is not defined on noncontrast imaging. Abnormal white matter disease is present in the left cerebral hemisphere. This may be therapy related. An acute infa rction process is not suspected. Mastoid air cells and visualized portions of the paranasal sinuses are clear. No acute bony findings. Findings telephoned to the referring clinician 1316 hours IMPRESSION: Extensive white matter edema throughout the right cerebral hemisphere creating substanti al mass effect and at least 7 mm of right to left midline shift. The right lateral and third ventricles are effaced within trapped left lateral ventricle. 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 No intracranial hemorrhage.
[2019-07-29 13:36] LABS: ALT/SGPT 18 U/L (12-78); Albumin 3.8 g/dL (3.4-5.0); Alkaline Phosphatase 76 U/L (45-117); BUN Blood Urea Nitrogen 10 mg/dL (7-18); Bicarbonate 28 mmol/L (21-32); Bilirubin Direct 0.2 mg/dL (0-0.2); Bilirubin Total 1.4 mg/dL (0.2-1.0); Glucose Level 115 mg/dL (74-106); Protein, Total 7.5 g/dL (6.4-8.2); Sodium Level 141 mmol/L (136-145)
[2019-07-29 13:37] LABS: AST/SGOT 18 U/L (15-37); Potassium 3.7 mmol/L (3.5-5.1)
[2019-07-29 14:04] LABS: Anisocytosis 1+; Blood Morphology Comment NOTED (NOT SEEN); Platelet Estimate DECR; Urine White Blood Cell Casts OK
[2019-07-29] MEDS ORDERED: levETIRAcetam 1,000 MG in NA CHLORIDE 0.9% 100 ML IV ONE (14:45)
[2019-07-29] MEDS ORDERED: dexAMETHasone 10 MG/ML VIAL ONE (14:45)
[2019-07-29 16:17] VITALS: TEMP 98.3
[2019-07-29 16:19] VITALS: BP 119/93; O2SAT 99
--- NOTE | 2019-08-02 15:55 | EDPHYS ---
Physician Documentation [facility] Name: Yamilka Adkins Age: 68 yrs Sex: Female : 1950 Arrival Date: 07/29/2019 Time: 11:19 Bed 8 Private MD: ED Physician Bishnu Bernardo HPI: 07/28 18:41 This 68 yrs old Female presents to ER via EMS with complaints of lethargic, kdr Fall Injury. 18:41 Details of fall: The patient fell from an upright position, while standing. Onset: The kdr symptoms/episode began/occurred 11:30 PM last night. Associated injuries: The patient sustained no obvious injury. Severity of symptoms: At their worst the symptoms were mild, in the emergency department the symptoms are unchanged. The patient has experienced similar episodes in the past. The patient has not recently seen a physician. states that the patient has been more confused lately and had increasingly number of falls. Last night, after falling in the bathroom and not being able to stand, he was able to get her back to bed. Once back in bed, he states that she did not move the rest of the night but did urinate in bed three times. Her confusion and lethargy has worsened.. Historical: - Allergies: 11:24 No Known Allergies; em - PMHx: 11:24 Cancer, Brain; High Cholesterol; Hypertension; DVT; em - PSHx: 11:24 brain tumor removal; em - Immunization history:: Adult Immunizations up to date. - Social history:: Smoking status: Patient denies any tobacco usage or history of. ROS: 18:41 Constitutional: Negative for fever, chills, and weight loss, Eyes: Negative for injury, kdr pain, redness, and discharge, Neck: Negative for injury, pain, and swelling, Cardiovascular: Negative for chest pain, palpitations, and edema, Respiratory: Negative for shortness of breath, cough, wheezing, and pleuritic chest pain, Abdomen/GI: Negative for abdominal pain, nausea, vomiting, diarrhea, and constipation, Back: Negative for injury and pain, : Negative for injury, bleeding, discharge, and swelling, Skin: Negative for injury, rash, and discoloration, Allergy/Immunology: Negative for hives, rash, and allergies, Endocrine: Negative for neck swelling, polydipsia, polyuria, polyphagia, and marked weight changes, Hematologic/Lymphatic: Negative for swollen nodes, abnormal bleeding, and unusual bruising. 18:41 Neuro: Positive for altered mental status, speech changes, weakness, No focal weakness. The patient is slow to respond but does answer simple questions appropriately. . Exam: 18:41 Constitutional: This is a well developed, well nourished patient who is awake, alert, kdr and in no acute distress. Head/Face: Normocephalic, atraumatic except for post op craniotomy scar on right parietal area Eyes: Pupils equal round and reactive to light, extra-ocular motions intact. Lids and lashes normal. Conjunctiva and sclera are non-icteric and not injected. Cornea within normal limits. Periorbital areas with no swelling, redness, or edema. Neck: Trachea midline, no thyromegaly or masses palpated, and no cervical lymphadenopathy. Supple, full range of motion without nuchal rigidity, or vertebral point tenderness. No Meningismus. Chest/axilla: Normal chest wall appearance and motion. Nontender with no deformity. No lesions are appreciated. Cardiovascular: Regular rate and rhythm with a normal S1 and S2. No gallops, murmurs, or rubs. Normal PMI, no JVD. No pulse deficits. Respiratory: Lungs have equal breath sounds bilaterally, clear to auscultation and percussion. No rales, rhonchi or wheezes noted. No increased work of breathing, no retractions or nasal flaring. Abdomen/GI: Soft, non-tender, with normal bowel sounds. No distension or tympany. No guarding or rebound. No evidence of tenderness throughout. Back: No spinal tenderness. No costovertebral tenderness. Full range of motion. Skin: Warm, dry with normal turgor. Normal color with no rashes, no lesions, and no evidence of cellulitis. MS/ Extremity: Pulses equal, no cyanosis. Neurovascular intact. Full, normal range of motion. Psych: Awake, alert, with orientation to person, place and time. Behavior, mood, and affect are within normal limits. 18:41 Neuro: Orientation: to person, place, Not oriented to time, situation, Mentation: responsive to voice slow to respond, confused, Memory: Intermittent and waxes/wanes. Vital Signs: 11:20 BP 114 / 94; Pulse 101; Resp 18; Temp 98.3; Pulse Ox 97% on R/A; Weight 68.04 kg (R); em Height 5 ft. 6 in. (167.64 cm); Pain 0/10; 12:20 BP 115 / 87; Pulse 99; Resp 16; Pulse Ox 96% ; sv 13:39 BP 132 / 69; Pulse 75; Resp 20; Pulse Ox 96% on R/A; kj1 14:30 BP 119 / 93; Pulse 88; Resp 18; Pulse Ox 99% on R/A; em 11:20 Body Mass Index 24.21 (68.04 kg, 167.64 cm) em MDM: 15:46 Patient medically screened. kdr 18:41 Data reviewed: vital signs, nurses notes, lab test result(s), radiologic studies. kdr Counseling: I had a detailed discussion with the patient and/or guardian regarding: the historical points, exam findings, and any diagnostic results supporting the discharge/admit diagnosis, lab results, radiology results, the need to transfer to another facility. 07/28 12:14 Order name: Acetaminophen; Complete Time: 13:44 kdr 07/28 12:14 Order name: Basic Metabolic Panel; Complete Time: 13:44 kdr 07/28 12:14 Order name: CBC with Diff; Complete Time: 14:25 kdr 07/28 12:14 Order name: ETOH Level; Complete Time: 13:44 kdr 07/28 12:14 Order name: Hepatic Function; Complete Time: 13:44 kdr 07/28 12:14 Order name: PT-INR; Complete Time: 13:44 kdr 07/28 12:14 Order name: CT Head Brain wo Cont; Complete Time: 13:44 kdr 07/28 12:14 Order name: Ptt, Activated; Complete Time: 13:44 kdr 07/28 12:14 Order name: Salicylate; Complete Time: 14:25 kdr 07/28 14:05 Order name: CBC Smear Scan; Complete Time: 14:25 EDMS 07/28 12:14 Order name: EKG - Nurse/Tech; Complete Time: 12:57 kdr 07/28 12:14 Order name: IV Saline Lock; Complete Time: 14:20 kdr 07/28 12:14 Order name: Labs collected and sent; Complete Time: 12:57 kdr Administered Medications: 14:43 Drug: Dexamethasone 10 mg Route: IVP; Site: right antecubital; em 15:10 Follow up: Response: No adverse reaction em 15:00 Drug: Keppra 1000 mg Route: IV; Rate: calculated rate; Site: right antecubital; em 15:20 Follow up: Response: No adverse reaction; IV Status: Completed infusion; IV Intake: em 100ml Disposition: 07/29/19 15:46 Transfer ordered to [facility]. Diagnosis are Confusional arousals, Altered mental status, unspecified, Cerebral edema. - Reason for transfer: Higher level of care. - Accepting physician is Dr. Goldberg. - Condition is Serious. - Problem is an acute exacerbation. - Symptoms are unchanged. Signatures: Dispatcher [employer] EDMS Bishnu Bernardo MD MD kdr Rahul Lynn RN RN em Corrections: (The following items were deleted from the chart) 15:52 15:46 07/29/2019 15:46 Transfer ordered to [facility]. Diagnosis is em Confusional arousals; Altered mental status, unspecified; Cerebral edema. Reason for transfer: Higher level of care. Accepting physician is Dr. Goldberg. Condition is Serious. Problem is an acute exacerbation. Symptoms are unchanged. kdr
--- NOTE | 2019-08-02 15:55 | ER ---
Nurse's Notes [facility] Name: Yamilka Adkins Age: 68 yrs Sex: Female : 1950 Arrival Date: 07/29/2019 Time: 11:19 Bed 8 Private MD: Diagnosis: Confusional arousals;Altered mental status, unspecified;Cerebral edema Presentation: 07/28 11:20 Chief complaint: EMS states: called out for being lethargic, pt reports falling em yesterday and hitting head, also reports hx of brain CA, pt A\T\Ox4. Coronavirus screen: Proceed with normal triage. Patient denies a cough. Patient denies shortness of breath or difficulty breathing. Patient denies measured and/or subjective temperature greater than 100.4F prior to today's visit. Patient denies travel on a cruise ship or to a country the [facility] currently lists as an affected area. Patient denies contact with known and/or suspected case of COVID-19. Ebola Screen: Patient negative for fever greater than or equal to 101.5 degrees Fahrenheit, and additional compatible Ebola Virus Disease symptoms Patient denies exposure to infectious person. Patient denies travel to an Ebola-affected area in the 21 days before illness onset. No symptoms or risks identified at this time. Initial Sepsis Screen: Does the patient meet any 2 criteria? HR > 90 bpm. No. Patient's initial sepsis screen is negative. Does the patient have a suspected source of infection? No. Patient's initial sepsis screen is negative. Risk Assessment: Do you want to hurt yourself or someone else? Patient reports no desire to harm self or others. Onset of symptoms was July 29, 2019. 11:20 Method Of Arrival: EMS: [facility] em 11:20 Acuity: RAISA 3 em Historical: - Allergies: 11:24 No Known Allergies; em - PMHx: 11:24 Cancer, Brain; High Cholesterol; Hypertension; DVT; em - PSHx: 11:24 brain tumor removal; em - Immunization history:: Adult Immunizations up to date. - Social history:: Smoking status: Patient denies any tobacco usage or history of. Screenin:20 Abuse screen: Denies threats or abuse. Nutritional screening: No deficits noted. em Tuberculosis screening: No symptoms or risk factors identified. Fall Risk None identified. Assessment: 11:20 General: Appears in no apparent distress. comfortable, Behavior is calm, cooperative, em appropriate for age, Denies fever. Pain: Denies pain. Neuro: Level of Consciousness is awake, alert, obeys commands, Oriented to person, place, time, situation, Appropriate for age. Cardiovascular: Capillary refill < 3 seconds Patient's skin is warm and dry. Respiratory: Airway is patent Respiratory effort is even, unlabored, Respiratory pattern is regular, symmetrical. GI: Abdomen is flat. Derm: Skin is intact, is healthy with good turgor, Skin is pink, warm \T\ dry. Musculoskeletal: Circulation, motion, and sensation intact. Capillary refill < 3 seconds. 12:10 Reassessment: Patient appears in no apparent distress at this time. Patient and/or em family updated on plan of care and expected duration. Pain level reassessed. Patient is alert, oriented x 3, equal unlabored respirations, skin warm/dry/pink. 14:29 Reassessment: Patient appears in no apparent distress at this time. Patient and/or em family updated on plan of care and expected duration. Pain level reassessed. Patient is alert, oriented x 3, equal unlabored respirations, skin warm/dry/pink. 15:00 Reassessment: report given to WALI Lowe at [facility] pending EMS em transportation. 15:25 Reassessment: keppra infiltrated into pt right arm, IV D/C'd, warm compresses applied, em Dr. Bernardo and pharmacy notified, no special orders, only monitor pt, reinserted IV in the LAC. 15:44 Reassessment: Patient appears in no apparent distress at this time. report given to em EMS. Vital Signs: 11:20 BP 114 / 94; Pulse 101; Resp 18; Temp 98.3; Pulse Ox 97% on R/A; Weight 68.04 kg (R); em Height 5 ft. 6 in. (167.64 cm); Pain 0/10; 12:20 BP 115 / 87; Pulse 99; Resp 16; Pulse Ox 96% ; sv 13:39 BP 132 / 69; Pulse 75; Resp 20; Pulse Ox 96% on R/A; kj1 14:30 BP 119 / 93; Pulse 88; Resp 18; Pulse Ox 99% on R/A; em 11:20 Body Mass Index 24.21 (68.04 kg, 167.64 cm) em ED Course: 11:19 Patient arrived in ED. em 11:20 Patient has correct armband on for positive identification. Placed in gown. Bed in low em position. Call light in reach. Pulse ox on. NIBP on. 11:23 Triage completed. em 11:24 Rahul Lnyn RN is Primary Nurse. em 11:24 Bishnu Bernardo MD is Attending Physician. kdr 11:24 Arm band placed on. em 13:05 Initial lab(s) drawn, by md, sent to lab. Inserted saline lock: 22 gauge in right kj1 antecubital area, using aseptic technique. Blood collected. 13:06 CT Head Brain wo Cont In Process Unspecified. EDMS 15:25 No provider procedures requiring assistance completed. IV discontinued, intact, em bleeding controlled, No redness/swelling at site. Pressure dressing applied. Administered Medications: 14:43 Drug: Dexamethasone 10 mg Route: IVP; Site: right antecubital; em 15:10 Follow up: Response: No adverse reaction em 15:00 Drug: Keppra 1000 mg Route: IV; Rate: calculated rate; Site: right antecubital; em 15:20 Follow up: Response: No adverse reaction; IV Status: Completed infusion; IV Intake: em 100ml Intake: 15:20 IV: 100ml; Total: 100ml. em Outcome: 15:46 ER care complete, transfer ordered by . kdr 15:48 Transferred by ground EMS to [facility], Transfer form completed. X-rays sent em w/ patient. 15:48 Condition: good 15:48 Instructed on the need for transfer, Demonstrated understanding of instructions. 15:52 Patient left the ED. em Signatures: Dispatcher [employer] Sabrina Sinha RN RN Bishnu Bernardo MD MD kdr Munoz, Edgar, RN RN em Soledad Knapp kj1
== END 2019-07-29 15:52 | disposition short-term general hospital (02) ==
LOC: ER 11:14
DX: G93.6 Cerebral edema (principal); R41.82 Altered mental status, unspecified; W19.XXXA Unspecified fall, initial encounter; Y93.89 Activity, other specified; Y92.9 Unspecified place or not applicable; I10 Essential (primary) hypertension; Z85.841 Personal history of malignant neoplasm of brain
CPT/HCPCS: 36415; 70450; 80048; 80076; 80320; 80329; 85025; 85610; 85730; 96365; 96375; 99285; J1100; J1953